=== PATIENT | female | born 1950 | race Hispanic/Latino ===

== ENCOUNTER 2018-04-01 14:34 | Inpatient (IN) | payer MEDICARE ==
[2018-04-01] MEDS ORDERED: Morphine 4 MG/ML VIAL IV STA (15:24)
[2018-04-01 15:40] LABS: BASO # 0.1 K/uL (0.0-0.2); BASO % 0.8 % (0.0-2.0); HEMOGLOBIN 13.4 g/dL (11.0-16.0); LYMPH # 0.7 K/uL (1.0-4.3); LYMPH % 4.8 % (20.0-40.0); MEAN CELL VOLUME 85.5 fL (81.0-99.0); MEAN CORPUSCULAR HEMOGLOBIN 28.9 pg (27.0-31.0); MEAN CORPUSCULAR HGB CONC 33.8 g/dL (33.0-37.0); MEAN PLATELET VOLUME 8.8 fL (7.2-11.7); MONO % 7.3 % (0.0-10.0); NEUT # 12.1 K/uL (1.8-7.0); NEUT % 87.1 % (50.0-75.0); PLATELET COUNT 529 K/uL (130-400); RBC 4.62 Mil/uL (3.80-5.20); RED CELL DISTRIBUTION WIDTH 14.2 % (11.5-14.5); WHITE BLOOD COUNT 13.8 K/uL (4.8-10.8)
[2018-04-01 15:58] LABS: ALB/GLOB RATIO 1.3 (1.0-2.1); ALBUMIN 4.2 g/dL (3.5-5.0); CALCIUM 10.3 mg/dl (8.6-10.4)
[2018-04-01 16:01] LABS: LYMPHOCYTE 5 % (20-40); MONOCYTE 11 % (0-10); NEUTROPHIL 83 % (50-75); PLATELET ESTIMATE INCREASED (NORMAL); REACTIVE LYMPHOCYTES 1 % (0-0); TOTAL CELLS COUNTED 100
[2018-04-01 16:02] LABS: POIKILOCYTOSIS SLIGHT
[2018-04-01 16:03] LABS: BURR CELLS SLIGHT; LARGE PLATELETS PRESENT
--- NOTE | 2018-04-01 16:08 | C.PDOC ---
History Of Present Illness 68 y/o female presents to ED c/o back pain, abdominal pain, and constipation for the last 3 weeks. She reports associated nausea, but denies vomiting, or urinary symptoms. Time Seen by Provider: 04/01/18 15:03 Chief Complaint (Nursing): Back Pain History Per: Patient History/Exam Limitations: no limitations Past Medical History Reviewed: Historical Data, Nursing Documentation, Vital Signs Vital Signs: Last Vital Signs Temp 97.7 F 04/01/18 14:35 Pulse 88 04/01/18 14:35 Resp 20 04/01/18 14:35 BP 104/70 04/01/18 14:35 Pulse Ox 96 04/01/18 17:14 - Medical History PMH: HTN, Hypercholesterolemia Family History: States: Unknown Family Hx - Social History Hx Alcohol Use: No Hx Substance Use: No Review Of Systems Except As Marked, All Systems Reviewed And Found Negative. Constitutional: Negative for: Fever, Chills Gastrointestinal: Positive for: Nausea, Abdominal Pain, Constipation. Negative for: Vomiting Genitourinary: Negative for: Dysuria, Frequency Musculoskeletal: Positive for: Back Pain Physical Exam - Physical Exam Appears: Non-toxic, No Acute Distress Skin: Normal Color, Warm, Dry Head: Atraumatic, Normacephalic Eye(s): bilateral: Normal Inspection Oral Mucosa: Moist Neck: Supple Cardiovascular: Rhythm Regular Respiratory: Normal Breath Sounds, No Rales, No Rhonchi, No Wheezing Gastrointestinal/Abdominal: Bowel Sounds, Soft, Tenderness (diffuse), No Guarding, No Rebound Back: No CVA Tenderness, No Vertebral Tenderness, Paraspinal Tenderness ( paralumbar), No Straight Leg Raising Extremity: Normal ROM Pulses: Left Dorsalis Pedis: Normal, Right Dorsalis Pedis: Normal Neurological/Psych: Oriented x3, Normal Speech ED Course And Treatment - Laboratory Results Result Diagrams: 04/01/18 15:35 04/01/18 15:35 ECG: Interpreted By Me, Viewed By Me ECG Rhythm: Sinus Rhythm Interpretation Of ECG: Normal axis, normal intervals. T wave inversion in lead II, III, and AVF. Rate From EC O2 Sat by Pulse Oximetry: 96 Pulse Ox Interpretation: Normal Medical Decision Making Medical Decision Making: Plan: Blood work UA CXR EKG LS Spine Morphine Disposition Discussed With : Padmavathi Jonnalagadda Doctor Will See Patient In The: Hospital Counseled Patient/Family Regarding: Studies Performed, Diagnosis - Disposition Disposition: HOSPITALIZED Disposition Time: 18:35 Condition: FAIR Forms: [facility] (Georgian) - Clinical Impression Clinical Impression: Hypokalemia, Chest mass, Cirrhosis - Scribe Statement The provider has reviewed the documentation as recorded by the Scribe KP All medical record entries made by the Scribe were at my direction and personally dictated by me. I have reviewed the chart and agree that the record accurately reflects my personal performance of the history, physical exam, medical decision making, and the department course for this patient. I have also personally directed, reviewed, and agree with the discharge instructions and disposition.
[2018-04-01 16:09] LABS: TROPONIN I 0.028 ng/mL (0.00-0.120)
--- NOTE | 2018-04-01 17:17 | RAD ---
Date of service: 04/01/2018 PROCEDURE: Radiographs of the Lumbar Spine. HISTORY: back pain COMPARISON: Lumbar spine radiographs performed 03/09/18 FINDINGS: BONES: Multilevel degenerative changes. Facet hypertrophy. Small osteophyte formation. Alignment appears satisfactory. DISC SPACES: Mild intervertebral disc space narrowing. OTHER FINDINGS: Dense atherosclerotic calcifications of the aorta and branches. IMPRESSION: Multilevel degenerative changes.
[2018-04-01] MEDS ORDERED: Potassium Chloride 20 mEq/15 ml LIQ UD PO STA (17:45)
[2018-04-01 17:56] LABS: SQUAMOUS EPITHIAL 1 /hpf (0-5); URINE BACTERIA RARE (<OCC); URINE BILIRUBIN NEGATIVE (NEGATIVE); URINE BLOOD 1+ (NEGATIVE); URINE CLARITY Clear (Clear); URINE COLOR Yellow (YELLOW); URINE GLUCOSE (UA) NORMAL (Normal); URINE HYALINE CAST >20 /lpf (0-2); URINE PROTEIN 1+ mg/dL (NEGATIVE)
[2018-04-01 17:57] LABS: URINE LEUKOCYTE ESTERASE 1+ Leu/uL (Negative)
[2018-04-01] MEDS ORDERED: Potassium Chloride 20 mEq 100 ML ONE (18:05)
[2018-04-01] MEDS ORDERED: Potassium Chloride 20 mEq ER Tab PO ONE (18:05)
--- NOTE | 2018-04-01 18:20 | CT ---
PROCEDURE: CT Abdomen and Pelvis without Oral or IV contrast. HISTORY: abd pain COMPARISON: None available TECHNIQUE: Contiguous axial images of the abdomen and pelvis. No oral or IV contrast administered. Coronal and Sagittal reformats generated. Radiation dose: Total exam DLP = 244.70 mGy-cm. This CT exam was performed using one or more of the following dose reduction techniques: Automated exposure control, adjustment of the mA and/or kV according to patient size, and/or use of iterative reconstruction technique. FINDINGS: There is limited evaluation of the solid organs without the administration of IV contrast. LOWER THORAX: Partially imaged right lower lobe cavitary lesion identified measuring approximately 2.8 x 3.4 cm. There is no visible pleural effusion or pneumothorax. Moderate to large hiatal hernia. LIVER: Nodular hepatic contour may be seen in the setting of cirrhosis. Hepatomegaly. Heterogeneous hepatic parenchyma with subtle regions of hypodensity. For example: 11 mm hypodensity at the hepatic dome (image 24) ; 9 mm hypodensity right hepatic lobe (image 36) 11 mm hypodensity right hepatic lobe (image 48) 10 mm hypodensity inferior right hepatic lobe (image 75). GALLBLADDER AND BILE DUCTS: Unremarkable unenhanced appearance. PANCREAS: Mild atrophy. SPLEEN: Unremarkable unenhanced appearance. ADRENALS: Left adrenal gland hypertrophy. The right adrenal gland appears unremarkable. KIDNEYS AND URETERS: No hydronephrosis or obstructing renal calculus. Probable 10 mm right renal cyst. BLADDER: The urinary bladder appears unremarkable. REPRODUCTIVE: Atrophic uterus. APPENDIX: No secondary signs of acute appendicitis. BOWEL: The stomach is nondistended. Lack of oral contrast limits evaluation for bowel pathology. The bowel loops appear within normal limits of caliber without evidence of intestinal obstruction. Scattered diverticula. PERITONEUM: No significant free fluid. No definite free air. LYMPH NODES: No bulky lymphadenopathy identified. VASCULATURE: Atherosclerotic calcifications of the aorta and branches. No aortic aneurysm. BONES: Degenerative changes. Osseous demineralization. OTHER FINDINGS: None. IMPRESSION: Right lower lobe cavitary lesion. Considerations include cavitary malignant neoplasm versus infection (such as tuberculosis or fungal infection). Nodular hepatic contour consistent with cirrhosis. Heterogeneous hepatic parenchyma with numerous subtle low-density regions which raise concern for underlying neoplasm/metastases. Recommend contrast-enhanced CT or triple phase liver CT for further evaluation. Hepatomegaly. Left adrenal gland hypertrophy. Additional findings as above. Findings discussed with Dr. Najera on 04/01/18 at 6:06 p.m.
--- NOTE | 2018-04-01 22:41 | CP.PCM.PN ---
Subjective - Date & Time of Evaluation Date of Evaluation: 04/01/18 Time of Evaluation: 22:41 - Subjective Subjective: H&P [facility] #[id number] Objective - Vital Signs/Intake and Output Vital Signs (last 24 hours): Temp Pulse Resp BP Pulse Ox 97.7 F 96 H 20 121/77 96 04/01/18 22:30 04/01/18 22:30 04/01/18 22:30 04/01/18 22:30 04/01/18 22:30 - Labs Labs: 04/01/18 15:35 04/01/18 15:35
[2018-04-01] MEDS: Sodium Chloride 0.45% 1,000 ML IV SCH (23:58)
[2018-04-02 08:04] LABS: ALB/GLOB RATIO 1.4 (1.0-2.1); ALBUMIN 4.1 g/dL (3.5-5.0); CALCIUM 10.2 mg/dl (8.6-10.4)
[2018-04-02 08:07] LABS: BASO # 0.1 K/uL (0.0-0.2); BASO % 0.6 % (0.0-2.0); EOS % 0.2 % (0.0-4.0); HEMOGLOBIN 12.6 g/dL (11.0-16.0); LYMPH # 1.2 K/uL (1.0-4.3); LYMPH % 9.3 % (20.0-40.0); MEAN CELL VOLUME 86.8 fL (81.0-99.0); MEAN CORPUSCULAR HEMOGLOBIN 29.3 pg (27.0-31.0); MEAN CORPUSCULAR HGB CONC 33.8 g/dL (33.0-37.0); MEAN PLATELET VOLUME 8.9 fL (7.2-11.7); MONO # 1.3 K/uL (0.0-0.8); MONO % 9.6 % (0.0-10.0); NEUT # 10.5 K/uL (1.8-7.0); NEUT % 80.3 % (50.0-75.0); NRBC % 0.1 % (0.0-2.0); PLATELET COUNT 477 K/uL (130-400); RBC 4.31 Mil/uL (3.80-5.20); RED CELL DISTRIBUTION WIDTH 14.9 % (11.5-14.5); WHITE BLOOD COUNT 13.1 K/uL (4.8-10.8)
--- NOTE | 2018-04-02 08:12 | HP ---
CHIEF COMPLAINT: Generalized fatigue, weakness, constipation for the past three days and chronic lower back pain for the past three weeks, unable to ambulate for the past three days. HISTORY OF PRESENT ILLNESS: Ms. Gil is a 68-year-old female with past medical history of hypertension, hyperlipidemia, chronic low back pain, who has been taking multiple pain medications and who has seen about three weeks ago for low back pain, came into the emergency room, brought by EMS with complaints of chronic low back pain, has been taking multiple pain medications without significant relief and has been having constipation for the past three days, not able to eat anything, feeling nauseous but denies any vomiting or any other associated symptoms. Denies any abdominal pain. Denies any headache or dizziness. Denies any chest pain, shortness of breath or wheezing. Denies any urinary complaints. Denies any leg pains or leg cramps. Denies any other neurologic symptoms. In the emergency room, the patient was found to be having abnormal radiologic workup and abnormal labs with elevated BUN and creatinine, and the patient is being admitted for further management. When I examined, the patient is still complaining of back pain and complaining of feeling thirsty, dry mouth. Requesting for fluids. Denies any other complaints. PAST MEDICAL HISTORY: As described; hypertension, chronic back pain, and hyperlipidemia. PAST SURGICAL HISTORY: Denies any past surgical history. FAMILY HISTORY: One brother from lung cancer. Other brother from unknown cancer, and another brother from alcoholism. PERSONAL HISTORY: She is not , not having any children. Lives alone. She is retired, worked for [employer] for many years. SOCIAL HISTORY: Ex-smoker. Quit smoking many years ago. Denies any alcohol or drugs. ALLERGIES: SHE IS ALLERGIC TO PENICILLIN. MEDICATIONS: Include ibuprofen three tablet p.o. four times a day as needed, lisinopril/hydrochlorothiazide 25/20 one tablet daily, lovastatin daily, metoprolol 100 mg daily. REVIEW OF SYSTEMS: As described in history of present illness, all other systems reviewed and were found to be negative. PHYSICAL EXAMINATION: GENERAL: Elderly female, lying in bed, in no acute distress. VITAL SIGNS: Blood pressure 121/77, pulse 96, respirations 20, temperature 97.7 degrees Fahrenheit, O2 sat is 96% on room air. HEENT: Pupils are equal, round, and reacting to light and accommodation. Extraocular muscles intact. No icterus. No pallor. No oral thrush. No pharyngeal congestion. NECK: Supple. No JVD. LUNGS: Bilateral vesicular breath sounds. No wheezing. No rhonchi. CARDIOVASCULAR SYSTEM: S1, S2 are present, regular. ABDOMEN: Soft. Bowel sounds present. Her liver enlarged breath below the right costal margin. Mild tenderness noted. No guarding, no rigidity, no rebound tenderness noted. CENTRAL NERVOUS SYSTEM: Alert, awake, oriented x1. No focal deficits noted. EXTREMITIES: No edema. Palpable peripheral pulses. LABORATORY DATA: Labs done from the emergency room: WBC 13.8, hemoglobin 13.4, hematocrit 39.5, platelets 529. Sodium 134, potassium 2.6, chloride 91, bicarb 17, BUN 46, creatinine 2.1, glucose 81, calcium 10.3. Magnesium 1.9, total bilirubin 1.8, AST 198, ALT 160, alkaline phosphatase 440, troponin 0.0280, total protein 7.5, albumin 4.2, lipase 132. UA: Specific gravity 1.013, pH 5, protein 1+, ketones 1+, blood 1+, urobilinogen 2, leukocyte esterase 1+, wbc 12, rbc 5. Lumbar spine x-ray consistent with multilevel degenerative changes. Abdomen and pelvis CT consistent with right lower lobe cavitary lesion. Considerations include cavitary malignant neoplasm versus infection, nodular hepatic contour consistent with cirrhosis, heterogeneous hepatic parenchyma with numerous low-density regions which raise concern for underlying neoplasm versus metastases. Left adrenal gland hypertrophy. Chest x-ray consistent with right lung mass versus cavitary lesion. ASSESSMENT: Elderly female with past medical history of hypertension, hyperlipidemia, chronic low back pain, on multiple pain medications for long time, admitted to the hospital with worsening low back pain for the past three weeks and constipation for the past three days and not able to eat and difficulty ambulation at home. In the Emergency Department, the patient was found to be having low potassium, elevated BUN and creatinine and abnormal liver function test. CT of the abdomen and pelvis consistent with cirrhosis of the liver with multiple hepatic lesions and chest x-ray consistent with right lung mass; and the patient is being admitted for further management. 1. Acute kidney injury, on chronic kidney disease. 2. Hypokalemia. 3. Abnormal liver function tests. 4. Cirrhosis of the liver versus hepatic lesions, rule out primary versus metastatic disease. 5. Right lung mass, rule out infectious etiology versus malignant lesion. 6. History of hypertension. 7. History of chronic low back pain. 8. Constipation. PLAN: The patient is being admitted to telemetry. We will supplement potassium. Check magnesium level and phosphorus level. The patient is being supplemented with potassium in the emergency room. We will give gentle hydration. Check hepatitis serology. We will repeat labs in the morning. We will obtain pulmonary consult. We will consider GI and Renal evaluations. We will obtain laboratory data from primary physician's office. We will check QuantiFERON-TB Gold test. Advised the patient to bring the medication dosages. We will restart her medications. We will add further recommendations as her clinical course progresses. Aislinn Hennessy MD
[2018-04-02 08:46] LABS: SQUAMOUS EPITHIAL 5 /hpf (0-5); URINE BACTERIA RARE (<OCC); URINE BILIRUBIN NEGATIVE (NEGATIVE); URINE BLOOD 1+ (NEGATIVE); URINE CLARITY Clear (Clear); URINE COLOR Yellow (YELLOW); URINE GLUCOSE (UA) NORMAL (Normal); URINE LEUKOCYTE ESTERASE 2+ Leu/uL (Negative); URINE PROTEIN NEGATIVE (NEGATIVE); URINE UROBILINOGEN NORMAL mg/dL (0.2-1.0)
[2018-04-02 08:52] LABS: BARBITURATES, UR NEGATIVE (NEGATIVE); BENZODIAZEPINES, UR NEGATIVE (NEGATIVE); PHENCYCLIDINE, UR NEGATIVE (NEGATIVE)
[2018-04-02 09:11] LABS: OPIATES, UR POSITIVE (NEGATIVE)
--- NOTE | 2018-04-02 09:48 | CP.PCM.PN ---
Subjective - Date & Time of Evaluation Date of Evaluation: 04/02/18 Time of Evaluation: 09:48 - Subjective Subjective: Progress note dictated #[id number] Objective - Vital Signs/Intake and Output Vital Signs (last 24 hours): Temp Pulse Resp BP Pulse Ox 97.7 F 115 H 20 105/69 95 04/02/18 07:00 04/02/18 07:49 04/02/18 07:00 04/02/18 07:00 04/02/18 07:00 - Medications Medications: Current Medications Heparin Sodium (Porcine) (Heparin) 5,000 units SC Q12 [facility] Sodium Chloride (Sodium Chloride 0.45%) 1,000 mls @ 75 mls/hr IV .[id number] [facility] Last Admin: 04/01/18 23:58 Dose: 75 mls/hr Thiamine HCl (Vitamin B1 Tab) 100 mg PO DAILY [facility] Last Admin: 04/01/18 23:57 Dose: 100 mg - Labs Labs: 04/02/18 07:39 04/02/18 07:39
--- NOTE | 2018-04-02 10:18 | RAD ---
Chest x-ray single frontal view History: Shortness of breath. Comparison: None available. Findings: Large 4.7 centimeter mass concerning for neoplasm in the right mid lung zone. Additional masses noted within the right lower lung zone measuring 1.9 centimeters. Cavitary lesion seen within the medial left lower lung zone measuring up to 3 centimeters. Diffuse interstitial lung markings with scattered nodularity in both lung lennon. Heart size within normal limits. Degenerative changes in the spine and shoulders. Impression: Multiple pulmonary masses concerning for neoplasm and or infection. Further evaluation with chest CT is recommended.
[2018-04-02] MEDS: Potassium Chloride 20 mEq ER Tab PO SCH ×2 (10:46→13:15)
[2018-04-02 11:35] LABS: ANISOCYTOSIS SLIGHT; LARGE PLATELETS PRESENT; LYMPHOCYTE 10 % (20-40); MONOCYTE 8 % (0-10); NEUTROPHIL 82 % (50-75); PLATELET ESTIMATE INCREASED (NORMAL); TOTAL CELLS COUNTED 100
[2018-04-02 11:36] LABS: HYPOCHROMIC SLIGHT; POLYCHROMIC SLIGHT
[2018-04-02 11:38] LABS: BURR CELLS SLIGHT; POIKILOCYTOSIS SLIGHT
[2018-04-02] MEDS: Sodium Chloride 0.45% 1,000 ML IV SCH (12:59)
--- NOTE | 2018-04-02 19:44 | CP.PCM.CON ---
History of Present Illness - History of Present Illness History of Present Illness: reason for consultation: lung mass 60-year-old female with history of hypertension, hyperlipidemia, low back pain presented to emergency room with low back pain and has been taking multiple pain medication without any relief. Patient denies shortness of breath, denies any chest pain but complaining of slight cough. Chest x-ray done in the emergency consistent with a right lung mass followed by CAT scan of the chest with possible metastases to liver. Patient has history of smoking and quit many years ago. Denies hemoptysis but complaining of weight loss Review of Systems - Review of Systems All systems: reviewed and no additional remarkable complaints except (chronic low back pain and slight cough) Past Patient History - Past Medical History & Family History Past Medical History?: Yes - Past Social History Smoking Status: Former Smoker - CARDIAC Hx Hypercholesterolemia: Yes Hx Hypertension: Yes - PULMONARY Hx Respiratory Disorders: No - NEUROLOGICAL Hx Neurological Disorder: Yes HX Cerebrovascular Accident: Yes - HEENT Hx HEENT Problems: No - RENAL Hx Chronic Kidney Disease: No - ENDOCRINE/METABOLIC Hx Endocrine Disorders: No - HEMATOLOGICAL/ONCOLOGICAL Hx Blood Disorders: No - INTEGUMENTARY Hx Dermatological Problems: No - MUSCULOSKELETAL/RHEUMATOLOGICAL Hx Musculoskeletal Disorders: Yes Hx Back Pain: Yes Hx Falls: Yes - GASTROINTESTINAL Hx Gastrointestinal Disorders: Yes Hx Constipation: Yes - GENITOURINARY/GYNECOLOGICAL Hx Genitourinary Disorders: No - PSYCHIATRIC Hx Substance Use: No - SURGICAL HISTORY Hx Surgeries: No - ANESTHESIA Hx Anesthesia: No Meds Allergies/Adverse Reactions: Allergies Allergy/AdvReac Type Severity Reaction Status Date / Time Penicillins Allergy Verified 04/01/18 14:38 - Medications Medications: Current Medications Heparin Sodium (Porcine) (Heparin) 5,000 units SC Q12 [facility] Last Admin: 04/02/18 10:46 Dose: 5,000 units Sodium Chloride (Sodium Chloride 0.45%) 1,000 mls @ 75 mls/hr IV .[id number] [facility] Last Admin: 04/02/18 12:59 Dose: Not Given Thiamine HCl (Vitamin B1 Tab) 100 mg PO DAILY [facility] Last Admin: 04/02/18 09:51 Dose: 100 mg Physical Exam - Head Exam Head Exam: ATRAUMATIC, NORMOCEPHALIC - ENT Exam ENT Exam: Mucous Membranes Moist - Neck Exam Neck exam: Positive for: Normal Inspection - Respiratory Exam Respiratory Exam: Clear to Auscultation Bilateral - Cardiovascular Exam Cardiovascular Exam: REGULAR RHYTHM - GI/Abdominal Exam GI & Abdominal Exam: Normal Bowel Sounds, Soft - Extremities Exam Extremities exam: Positive for: pedal edema - Neurological Exam Neurological exam: Alert, Oriented x3 Results - Vital Signs Recent Vital Signs: Last Vital Signs Temp 97.7 F 04/02/18 15:00 Pulse 104 H 04/02/18 15:00 Resp 20 04/02/18 15:00 BP 123/76 04/02/18 15:00 Pulse Ox 95 04/02/18 15:00 - Labs Result Diagrams: 04/02/18 07:39 04/02/18 07:39 Labs: Laboratory Results - last 24 hr 04/02/18 04/02/18 04/02/18 00:15 07:39 07:39 WBC 13.1 H RBC 4.31 Hgb 12.6 Hct 37.4 MCV 86.8 MCH 29.3 MCHC 33.8 RDW 14.9 H Plt Count 477 H MPV 8.9 Neut % (Auto) 80.3 H Lymph % (Auto) 9.3 L [place] % (Auto) 9.6 Eos % (Auto) 0.2 Baso % (Auto) 0.6 Neut # (Auto) 10.5 H Lymph # (Auto) 1.2 [place] # (Auto) 1.3 H Eos # (Auto) 0.0 Baso # (Auto) 0.1 Neutrophils % (Manual) 82 H Lymphocytes % (Manual) 10 L Monocytes % (Manual) 8 Platelet Estimate Increased H Large Platelets Present Polychromasia Slight Hypochromasia (manual) Slight Poikilocytosis (manual Slight Anisocytosis (manual) Slight [place] Cells Slight Sodium 132 Potassium 3.4 L Chloride 95 L Carbon Dioxide 17 L Anion Gap 23 H BUN 38 H Creatinine 1.3 H Est GFR ( Amer) 49 Est GFR (Non-Af Amer) 41 Random Glucose 82 Calcium 10.2 Phosphorus 2.9 Magnesium 1.8 Total Bilirubin 2.2 H AST 184 H ALT 143 H Alkaline Phosphatase 420 H Ammonia 32 Total Protein 7.0 Albumin 4.1 Globulin 2.9 Albumin/Globulin Ratio 1.4 Triglycerides 158 H Cholesterol 202 H LDL Cholesterol Direct 82 HDL Cholesterol 73 H TSH 3rd Generation 0.92 Urine Color Urine Clarity Urine pH Ur Specific [place] Urine Protein Urine Glucose (UA) Urine Ketones Urine Blood Urine Nitrate Urine Bilirubin Urine Urobilinogen Ur Leukocyte Esterase Urine WBC (Auto) Urine RBC (Auto) Ur Squamous Epith Cells Urine Bacteria Urine Opiates Screen Urine Methadone Screen Ur Barbiturates Screen Ur Phencyclidine Scrn Ur Amphetamines Screen U Benzodiazepines Scrn U Oth Cocaine Metabols U Cannabinoids Screen 04/02/18 04/02/18 08:17 08:17 WBC RBC Hgb Hct MCV MCH MCHC RDW Plt Count MPV Neut % (Auto) Lymph % (Auto) [place] % (Auto) Eos % (Auto) Baso % (Auto) Neut # (Auto) Lymph # (Auto) [place] # (Auto) Eos # (Auto) Baso # (Auto) Neutrophils % (Manual) Lymphocytes % (Manual) Monocytes % (Manual) Platelet Estimate Large Platelets Polychromasia Hypochromasia (manual) Poikilocytosis (manual Anisocytosis (manual) [place] Cells Sodium Potassium Chloride Carbon Dioxide Anion Gap BUN Creatinine Est GFR ( Amer) Est GFR (Non-Af Amer) Random Glucose Calcium Phosphorus Magnesium Total Bilirubin AST ALT Alkaline Phosphatase Ammonia Total Protein Albumin Globulin Albumin/Globulin Ratio Triglycerides Cholesterol LDL Cholesterol Direct HDL Cholesterol TSH 3rd Generation Urine Color Yellow Urine Clarity Clear Urine pH 5.0 Ur Specific [place] 1.011 Urine Protein Negative Urine Glucose (UA) Normal Urine Ketones 1+ H Urine Blood 1+ H Urine Nitrate Negative Urine Bilirubin Negative Urine Urobilinogen Normal Ur Leukocyte Esterase 2+ H Urine WBC (Auto) 7 H Urine RBC (Auto) 1 Ur Squamous Epith Cells 5 Urine Bacteria Rare Urine Opiates Screen Positive H Urine Methadone Screen Negative Ur Barbiturates Screen Negative Ur Phencyclidine Scrn Negative Ur Amphetamines Screen Negative U Benzodiazepines Scrn Negative U Oth Cocaine Metabols Negative U Cannabinoids Screen Negative Assessment & Plan (1) Mass of right lung Status: Acute Comment: right lung mass with possible liver metastases. Lung biopsy. Continue pain medication
--- NOTE | 2018-04-02 20:44 | PN ---
DATE: 04/02/2018 SUBJECTIVE: The patient was seen and examined at bedside. The patient denies any new complaints, able to tolerate p.o. feeds without any nausea or vomiting. PHYSICAL EXAMINATION: GENERAL: An elderly female, lying in bed, in no acute distress. VITAL SIGNS: Blood pressure 105/69, pulse 86, respirations 20, temperature 97.5 degrees Fahrenheit, and O2 saturations 95% on room air. HEENT: Pupils are round and reacting to light and accommodation. Extraocular muscles intact. No icterus. No pallor. No oral thrush. No pharyngeal congestion. NECK: Supple, no JVD. LUNGS: Bilateral vesicular breath sounds. No wheezing, no rhonchi. CVS: S1 and S2 present, regular. ABDOMEN: Soft and nontender. Bowel sounds present. No guarding, no rigidity, and no rebound tenderness noted. CENTRAL NERVOUS SYSTEM: Alert, awake, and oriented x3, no focal deficits noted. EXTREMITIES: No edema, palpable peripheral pulses. LABORATORY DATA: From this morning: WBC 13.1, hemoglobin 12.6, hematocrit 37.4, platelets 477. Sodium 132, potassium 3.4, chloride 95, bicarbonate 17, BUN 38, creatinine 1.3, glucose 82, calcium 10,2, phosphorus 2.9, magnesium 1.8, total bilirubin 2.2, AST 184, ALT 143, alkaline phosphatase 420, total protein 7, albumin 4.1, triglycerides 158, cholesterol 202, LDL 82, HDL 73, and TSH 0.92. Urine drug screen is positive for opiates. MEDICATIONS: Include subcutaneous heparin 5000 units every 12 hours, normal saline at 75 mL an hour, and thiamine 100 mg daily. ASSESSMENT AND PLAN: An elderly female with history of hypertension, hyperlipidemia, history of cerebrovascular accident with left lower extremity residual weakness, who uses a cane at home, and chronic low back pain, on pain medications, admitted for acute renal failure, hypokalemia, abnormal liver function tests, right lung mass, cirrhosis of the liver versus multiple hepatic lesions, rule out secondary to metastatic disease, and chronic constipation. The patient's renal function is improving on IV fluids, tolerating p.o. feeds. Supplement potassium, waiting for CT of the chest results, and pulmonary and GI evaluations requested. We will continue with deep venous thrombosis and gastrointestinal prophylaxis. Gave 1 dose of lactulose for constipation. Repeat labs in a.m. We will add further recommendation as her clinical course progresses. Aislinn Hennessy MD [facility] # [id number]
--- NOTE | 2018-04-03 00:53 | PCM.FALL ---
Post Fall Progress Note - Post Fall Fall Date: 04/03/18 Fall Time: 00:37 Description of Fall: Patient states she was getting up from bed to use the bedside camode and her legs got slightly tangled into the sheets that she fell onto her right side, while holding onto the other end of the sheets. Patient states she feel softly onto the ground. Patient denies hitting head & LOC. - Post Fall Exam Vital Sign: Temp Pulse Resp BP Pulse Ox 97.5 F L 101 H 20 127/81 95 04/03/18 00:00 04/03/18 00:00 04/03/18 00:00 04/03/18 00:00 04/03/18 00:00 Skull Exam: Negative for: Scalp wound, Scalp hematoma, Scalp depression, Ridge in skull Eye Exam: Positive for: Pupils equal, Pupils reactive Ear Exam: Negative for: Discharge, Bleeding Nose Exam: Negative for: Discharge, Bleeding Skin Exam: Negative for: Lacerations Chest Exam: Negative for: Difficulty breathing, Tenderness in collar bones Abdomen Exam: Negative for: Tenderness Pelvic Exam: Negative for: Tenderness Leg Exam: Negative for: Deformity, Alteration in range of movement Other pertinent findings: Patient A&OX3 throughout examination. Patient denies tenderness/pain at all 4 extremities. No erythema/ ecchymosis present. Impression/Plan: Code star for 68F w/ PMHx HTN, HLD, chronic lower back pain. Upon arrival patient was found sitting in bedside commode. Patient states she fell as described earlier in note. Patient is A&O X3, denies any current pain. Patient able to move all 4 extremities w/o pain and patient currently has no erythema around extremities. Vitals were assessed at BP 149/89 & HR 102 & O2 Sat 96%. Patient re-examined and patient remains A&O3. No additional medical management warranted at this time. Nurse informed to re-page house doctor if change in mental status &/or patient complaints.
[2018-04-03] MEDS: Sodium Chloride 0.45% 1,000 ML IV SCH ×4 (05:58→20:25)
[2018-04-03 08:07] LABS: HEPATITIS B SURFACE AG Negative (NEGATIVE)
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
[2018-04-03 08:13] LABS: HEPATITIS A IGM NEGATIVE (NEGATIVE); HEPATITIS B CORE AB NEGATIVE (NEGATIVE)
[2018-04-03 08:24] LABS: HEPATITIS C ANTIBODY NEGATIVE (NEGATIVE)
[2018-04-03 11:20] LABS: INR 1.3; PROTHROMBIN TIME 13.7 SECONDS (9.7-12.2)
--- NOTE | 2018-04-03 12:24 | CP.PCM.PN ---
Subjective - Date & Time of Evaluation Date of Evaluation: 04/03/18 Time of Evaluation: 12:24 - Subjective Subjective: Progress note dictated #[id number] Objective - Vital Signs/Intake and Output Vital Signs (last 24 hours): Temp Pulse Resp BP Pulse Ox 97.6 F 105 H 20 114/72 95 04/03/18 07:00 04/03/18 07:20 04/03/18 07:00 04/03/18 07:00 04/03/18 07:00 Intake and Output: 04/03/18 04/03/18 06:59 18:59 Intake Total 800 Balance 800 - Medications Medications: Current Medications Heparin Sodium (Porcine) (Heparin) 5,000 units SC Q12 [facility] Last Admin: 04/03/18 09:10 Dose: 5,000 units Sodium Chloride (Sodium Chloride 0.45%) 1,000 mls @ 75 mls/hr IV .[id number] [facility] Last Admin: 04/03/18 05:58 Dose: 75 mls/hr Thiamine HCl (Vitamin B1 Tab) 100 mg PO DAILY [facility] Last Admin: 04/03/18 09:10 Dose: 100 mg - Labs Labs: 04/02/18 07:39 04/02/18 07:39 PT 13.7 SECONDS (9.7-12.2) H 04/03/18 11:08 INR 1.3 04/03/18 11:08
--- NOTE | 2018-04-03 13:14 | CT ---
CT chest History: Cavitary lung mass. Pulmonary masses. Comparison: CT abdomen and pelvis dated 04/01/2018 Technique: Multiple contiguous axial images were performed through the chest without the use of intravenous contrast. Subsequently, sagittal and coronal reformatted images were obtained. This CT exam was performed using one or more of the following dose reduction techniques: Automated exposure control, adjustment of the mA and/or kV according to patient size, and/or use of iterative reconstruction technique. Findings: Right lung: Hyperinflated lung lennon suggestive for COPD and or emphysematous changes. Scattered tree-in-bud opacities in the right lung. Large pulmonary mass/lesion measuring 4.3 x 4.3 centimeters seen at the junction of the right upper and middle lobes with apparent extension through the fissure best seen on series 3, image 59. Additional prominent less well-defined nodular opacity more inferiorly in the middle lobe measuring 1.8 x 1.3 x 1 5 centimeters. Multiple smaller nodules seen throughout the right lun millimeters on series 3 image 24, 2 millimeters on image 34, 3 millimeters on image 36, 7 millimeters on image 42, and 5 millimeters on image 46. Left lun.2 x 3.2 centimeter cavitary mass in the medial left lower lobe. Trachea thru central airways patent. No significant axillary adenopathy. Calcification and plaque within the aorta. Right hilar adenopathy measuring up to 2.6 centimeters. 2.3 x 1.6 centimeter precarinal lymph node. 2.1 x 1.8 centimeters subcarinal lymphadenopathy. Coronary calcifications. Nodular and cirrhotic contour of the liver with heterogeneous attenuation. Given the heterogeneous attenuation of the liver, underlying hepatic metastatic disease cannot be excluded. This would be better evaluated with multiphasic CT scan if clinically indicated. Prominent hiatal hernia. Degenerative changes in the spine. 10 millimeter subareolar nodule in the left breast. Correlation with mammogram is recommended. Impression: 4.3 centimeters solid mass involving both the right upper and middle lobes of the lung with an adjacent 1.8 x 1.3 x 1.5 centimeter right midpole nodule. Associated mediastinal and hilar adenopathy. These findings are concerning for malignancy. Clinical correlation. 3.2 centimeter cavitary mass in the left lower lobe of the lung medially. Clinical correlation. Additional findings as above. These findings were preliminarily reported at 5:18 p.m. on 04/02/[address] Miriam Muller from [facility].
--- NOTE | 2018-04-04 01:17 | PN ---
DATE: 04/03/2018 SUBJECTIVE: The patient was seen and examined at bedside. The patient offers no new complaints other than persistent low back pain. Tolerating p.o. feeds, requesting for heating pad. PHYSICAL EXAMINATION: GENERAL: Elderly female, lying in bed, in no acute distress. VITAL SIGNS: Blood pressure 150/86, pulse 109, respirations 18, temperature 97.8 degrees Fahrenheit, O2 sat is 97% on room air. HEENT: Pupils equal, round, reacting to light and accommodation. Extraocular muscles intact. No icterus. No pallor. No oral thrush. No pharyngeal congestion. NECK: Supple. No JVD. LUNGS: Bilateral vesicular breath sounds. No wheezing. No rhonchi. CVS: S1, S2 present, regular. ABDOMEN: Soft, nontender. Bowel sounds present. No guarding. No rigidity. No rebound tenderness noted. [employer]: Alert, awake, oriented x3. No focal deficits noted. EXTREMITIES: No edema. Palpable peripheral pulses. MEDICATIONS: Include heparin 5000 units subcu every 12 hours, half normal saline at 75 mL an hour, thiamine 100 mg p.o. daily. LABORATORY DATA: PT is 13.7, INR 1.3, lizeth fetoprotein 3.3, CEA 2, CA 19-9 383, CA-125 212, TSH 0.92. Hepatitis serology negative. Chest CT consistent with a 4.3 cm solid mass involving both the right upper and middle lobes and adjacent 1.8 x 1.3 x 1.5 cm right mid pole nodule, mediastinal hilar adenopathy, a 3.2 cm cavitary mass in the left lower lobe of the lung medially. ASSESSMENT AND PLAN: Elderly female with history of hypertension, hyperlipidemia, chronic low back pain, admitted for acute renal failure status post hypokalemia, right lung mass with left lung cavitary lesion, abnormal liver function test and abnormal tumor markers. Pulmonary consult and GI consult appreciated. Continue with current therapy for possible lung biopsy in a.m. We will check bone scan to rule out any bone mets. I will repeat labs in a.m. Her renal function is improving. We will follow up with Pulmonary. Aislinn Hennessy MD
[2018-04-04] MEDS: Sodium Chloride 0.45% 1,000 ML IV SCH ×2 (04:05→08:51)
[2018-04-04 08:14] LABS: BASO % 0.5 % (0.0-2.0); EOS % 0.1 % (0.0-4.0); HEMOGLOBIN 12.5 g/dL (11.0-16.0); LYMPH # 0.8 K/uL (1.0-4.3); MEAN CELL VOLUME 86.1 fL (81.0-99.0); MEAN CORPUSCULAR HEMOGLOBIN 29.7 pg (27.0-31.0); MEAN CORPUSCULAR HGB CONC 34.5 g/dL (33.0-37.0); MEAN PLATELET VOLUME 8.7 fL (7.2-11.7); MONO # 0.8 K/uL (0.0-0.8); MONO % 8.4 % (0.0-10.0); NEUT # 8.1 K/uL (1.8-7.0); NRBC % 0.1 % (0.0-2.0); PLATELET COUNT 397 K/uL (130-400); RBC 4.21 Mil/uL (3.80-5.20); RED CELL DISTRIBUTION WIDTH 14.7 % (11.5-14.5); WHITE BLOOD COUNT 9.7 K/uL (4.8-10.8)
[2018-04-04 09:07] LABS: ALB/GLOB RATIO 1.4 (1.0-2.1); ALBUMIN 3.8 g/dL (3.5-5.0); ALT/SGPT 250 U/L (9-52); AST/SGOT 388 U/L (14-36); BLOOD UREA NITROGEN 14 mg/dL (7-17); CALCIUM 10.4 mg/dl (8.6-10.4); GFR NON-AFRICAN AMERICAN > 60
--- NOTE | 2018-04-04 09:12 | CP.PCM.PN ---
<Esther Kelly - Last Filed: 04/04/18 09:10> Subjective - Date & Time of Evaluation Date of Evaluation: 04/04/18 Time of Evaluation: 09:10 - Subjective Subjective: Gastroenterology Fellow/PGY6 Progress Note Patient continues to have unchanged low back pain without relief from heating pad. Tolerating full liquid diet. Notes small formed bowel movement yesterday. A 12-point review of systems negative except for as above. Objective - Vital Signs/Intake and Output Vital Signs (last 24 hours): Temp Pulse Resp BP Pulse Ox 98 F 8 L 20 134/91 H 97 04/04/18 00:00 04/04/18 02:11 04/04/18 00:00 04/04/18 00:00 04/04/18 00:00 Intake and Output: 04/04/18 04/04/18 06:59 18:59 Intake Total 1240 Balance 1240 - Medications Medications: Current Medications Heparin Sodium (Porcine) (Heparin) 5,000 units SC Q12 [facility] Last Admin: 04/03/18 21:37 Dose: 5,000 units Sodium Chloride (Sodium Chloride 0.45%) 1,000 mls @ 75 mls/hr IV .[id number] [facility] Last Admin: 04/04/18 08:51 Dose: 75 mls/hr Thiamine HCl (Vitamin B1 Tab) 100 mg PO DAILY [facility] Last Admin: 04/03/18 09:10 Dose: 100 mg - Labs Labs: 04/04/18 08:04 04/04/18 08:05 PT 13.7 SECONDS (9.7-12.2) H 04/03/18 11:08 INR 1.3 04/03/18 11:08 - Constitutional Appears: Non-toxic, No Acute Distress - Head Exam Head Exam: ATRAUMATIC, NORMOCEPHALIC - Eye Exam Eye Exam: EOMI, PERRL. absent: Scleral icterus Pupil Exam: PERRL. absent: Miosis, Mydriatic - ENT Exam ENT Exam: Mucous Membranes Moist, Normal Oropharynx - Neck Exam Neck Exam: Full ROM, Normal Inspection - Respiratory Exam Respiratory Exam: Clear to Ausculation Bilateral. absent: Rales, Rhonchi, Wheezes - Cardiovascular Exam Cardiovascular Exam: RRR, +S1, +S2. absent: Gallop, Rubs - GI/Abdominal Exam GI & Abdominal Exam: Soft, Normal Bowel Sounds. absent: Distended, Firm, Guarding, Rigid, Tenderness, Organomegaly, Rebound - Extremities Exam Extremities Exam: Normal Inspection. absent: Pedal Edema - Neurological Exam Neurological Exam: Alert, Awake Additional comments: no asterixis - Psychiatric Exam Psychiatric exam: Normal Affect, Normal Mood - Skin Skin Exam: Dry, Intact, Normal Color, Warm Assessment and Plan - Assessment and Plan (Free Text) Assessment: 68 year old female with PMH of alcoholic cirrhosis, HTN, and HLD presenting with chronic low back pain. Active treatment of JONNIE 2/2 NSAIDs use/dehydration and note of multiple right lung lesions and transaminitis in setting of multiple hepatic lesions on CT C/A/P. No prior EGD or colonoscopy. Plan: -MELD 19 -pending lung biopsy and bone scan -normal hepatitis panel and AFP 3.3 -no signs of hepatic decompensation -monitor LFTs -creatinine improving -tolerating full liquid diet -ordered Miralax for constipation -future CT Liver protocol once renal function medical optimized from NSAID insult to evaluate for HCC versus metastatic disease -will benefit from colonoscopy, will discuss timing based on pulmonology workup and recommendation <Dylon Lombardo - Last Filed: 04/04/18 10:39> Objective - Vital Signs/Intake and Output Vital Signs (last 24 hours): Temp Pulse Resp BP Pulse Ox 98 F 8 L 20 134/91 H 97 04/04/18 00:00 04/04/18 02:11 04/04/18 00:00 04/04/18 00:00 04/04/18 00:00 Intake and Output: 04/04/18 04/04/18 06:59 18:59 Intake Total 1240 Balance 1240 - Medications Medications: Current Medications Heparin Sodium (Porcine) (Heparin) 5,000 units SC Q12 [facility] Last Admin: 04/03/18 21:37 Dose: 5,000 units Sodium Chloride (Sodium Chloride 0.45%) 1,000 mls @ 75 mls/hr IV .[id number] [facility] Last Admin: 04/04/18 08:51 Dose: 75 mls/hr Polyethylene Glycol (Miralax) 17 gm PO DAILY [facility] Last Admin: 04/04/18 10:15 Dose: 17 gm Thiamine HCl (Vitamin B1 Tab) 100 mg PO DAILY [facility] Last Admin: 04/04/18 10:15 Dose: 100 mg - Labs Labs: 04/04/18 08:04 04/04/18 08:05 PT 13.7 SECONDS (9.7-12.2) H 04/03/18 11:08 INR 1.3 04/03/18 11:08 Attending/Attestation - Attestation I have personally seen and examined this patient.: Yes I have fully participated in the care of the patient.: Yes I have reviewed all pertinent clinical information, including history, physical exam and plan: Yes Notes (Text): 04/04/18 10:35 I have seen and examined patient with GI fellow. No acute events overnight, she is seen sitting at side of bed comfortably. She continues to endorse persistent lower back pain along with constipation. She had a small bowel movement yesterday. She denies nausea, vomiting, fever/chills. Tolerating PO liquids without difficulty. Review of vitals from today shows elevated BP. ETOH cirrhosis HTN Chronic lower back pain Pulmonary and hepatic lesions Acute renal insufficiency - Full liquid diet as tolerated - Creatinine improving, continue to monitor - Follow up pulmonary recommendations regarding potential lung biopsy - Will initiate bowel regimen to prevent constipation - Patient would benefit from eventual colonoscopy to rule out underlying neoplasm along with triple phase liver CT. Timing to be determined pending patient clinical course.
[2018-04-04] MEDS ORDERED: POLYETHYLENE GLYCOL 3350 17 GM/Dose PACKET PO SCH (10:00)
[2018-04-04 10:39] LABS: ANISOCYTOSIS SLIGHT; LYMPHOCYTE 8 % (20-40); MONOCYTE 8 % (0-10); NEUTROPHIL 84 % (50-75); PLATELET ESTIMATE NORMAL (NORMAL); TOTAL CELLS COUNTED 100
[2018-04-04 10:40] LABS: HYPOCHROMIC SLIGHT; POLYCHROMIC SLIGHT; TOXIC GRANULATION PRESENT
[2018-04-04 12:12] LABS: ALB/GLOB RATIO 1.3 (1.0-2.1); ALT/SGPT 266 U/L (9-52); AST/SGOT 417 U/L (14-36); BLOOD UREA NITROGEN 14 mg/dL (7-17); CALCIUM 10.5 mg/dl (8.6-10.4); GFR NON-AFRICAN AMERICAN > 60
[2018-04-04] MEDS: Magnesium Sulfate 1 gm in D5W 1 GM/100 ML BAG IVPB SCH ×2 (12:59→16:00)
--- NOTE | 2018-04-04 13:50 | CP.PCM.PN ---
Subjective - Date & Time of Evaluation Date of Evaluation: 04/04/18 Time of Evaluation: 13:50 - Subjective Subjective: Progress note dictated #[id number] Objective - Vital Signs/Intake and Output Vital Signs (last 24 hours): Temp Pulse Resp BP Pulse Ox 97.6 F 95 H 20 138/85 96 04/04/18 07:15 04/04/18 07:33 04/04/18 07:15 04/04/18 07:15 04/04/18 07:15 Intake and Output: 04/04/18 04/04/18 06:59 18:59 Intake Total 1240 Balance 1240 - Medications Medications: Current Medications Heparin Sodium (Porcine) (Heparin) 5,000 units SC Q12 [facility] Last Admin: 04/04/18 12:59 Dose: Not Given Potassium Phosphate 15 mmole/ (Sodium Chloride) 255 mls @ 42.5 mls/hr IVPB ONCE ONE Stop: 04/04/18 19:59 Polyethylene Glycol (Miralax) 17 gm PO DAILY [facility] Last Admin: 04/04/18 10:15 Dose: 17 gm Thiamine HCl (Vitamin B1 Tab) 100 mg PO DAILY [facility] Last Admin: 04/04/18 10:15 Dose: 100 mg - Labs Labs: 04/04/18 08:04 04/04/18 11:07 PT 13.7 SECONDS (9.7-12.2) H 04/03/18 11:08 INR 1.3 04/03/18 11:08
[2018-04-04] MEDS ORDERED: Potassium Phosphate 15 MMOLE in Sodium Chloride 0.9% 250 ML IVPB ONE (14:00)
[2018-04-04] MEDS: Pantoprazole 40 mg EC Tab PO SCH (14:23)
--- NOTE | 2018-04-04 17:07 | CP.PCM.PN ---
Subjective - Date & Time of Evaluation Date of Evaluation: 04/04/18 Time of Evaluation: 08:30 - Subjective Subjective: the patient seen and examined Complaining of chest wall pain no shortness of breath Afebrile Objective - Vital Signs/Intake and Output Vital Signs (last 24 hours): Temp Pulse Resp BP Pulse Ox 97.6 F 95 H 20 138/85 96 04/04/18 07:15 04/04/18 07:33 04/04/18 07:15 04/04/18 07:15 04/04/18 07:15 Intake and Output: 04/04/18 04/04/18 06:59 18:59 Intake Total 1240 Balance 1240 - Medications Medications: Current Medications Heparin Sodium (Porcine) (Heparin) 5,000 units SC Q12 [facility] Last Admin: 04/04/18 12:59 Dose: Not Given Potassium Phosphate 15 mmole/ (Sodium Chloride) 255 mls @ 42.5 mls/hr IVPB ONCE ONE Stop: 04/04/18 19:59 Morphine Sulfate (Morphine) 1 mg IVP Q4 PRN PRN Reason: Pain, severe (8-10) Pantoprazole Sodium (Protonix Ec Tab) 40 mg PO DAILY [facility] Last Admin: 04/04/18 14:23 Dose: 40 mg Polyethylene Glycol (Miralax) 17 gm PO DAILY [facility] Last Admin: 04/04/18 10:15 Dose: 17 gm Thiamine HCl (Vitamin B1 Tab) 100 mg PO DAILY [facility] Last Admin: 04/04/18 10:15 Dose: 100 mg - Labs Labs: 04/04/18 08:04 04/04/18 11:07 PT 13.7 SECONDS (9.7-12.2) H 04/03/18 11:08 INR 1.3 04/03/18 11:08 - Head Exam Head Exam: ATRAUMATIC, NORMOCEPHALIC - ENT Exam ENT Exam: Mucous Membranes Moist - Neck Exam Neck Exam: Normal Inspection - Respiratory Exam Respiratory Exam: Clear to Ausculation Bilateral - Cardiovascular Exam Cardiovascular Exam: REGULAR RHYTHM - GI/Abdominal Exam GI & Abdominal Exam: Soft Assessment and Plan (1) Mass of right lung Assessment & Plan: IR for biopsy Continue present treatment GI workup Status: Acute
--- NOTE | 2018-04-04 18:20 | CP.PCM.CON ---
History of Present Illness - History of Present Illness History of Present Illness: pt is seen and examined, full consult is dictated #[id number] 1. Hyponatremia, r/o SIADH 2. Hypophhosphatemia, mild hypercalcemia, r/o Primary HPTH 3. rt lung mass, r/o malignency check urine lytes,osm, serum osm, serum uric acid, tsh, cortisol level, will consider to add nacl tab po tid or tolvaptan after w/u Past Patient History - Past Medical History & Family History Past Medical History?: Yes - Past Social History Smoking Status: Former Smoker - CARDIAC Hx Hypercholesterolemia: Yes Hx Hypertension: Yes - PULMONARY Hx Respiratory Disorders: No - NEUROLOGICAL Hx Neurological Disorder: Yes HX Cerebrovascular Accident: Yes - HEENT Hx HEENT Problems: No - RENAL Hx Chronic Kidney Disease: No - ENDOCRINE/METABOLIC Hx Endocrine Disorders: No - HEMATOLOGICAL/ONCOLOGICAL Hx Blood Disorders: No - INTEGUMENTARY Hx Dermatological Problems: No - MUSCULOSKELETAL/RHEUMATOLOGICAL Hx Musculoskeletal Disorders: Yes Hx Back Pain: Yes Hx Falls: Yes - GASTROINTESTINAL Hx Gastrointestinal Disorders: Yes Hx Constipation: Yes - GENITOURINARY/GYNECOLOGICAL Hx Genitourinary Disorders: No - PSYCHIATRIC Hx Substance Use: No - SURGICAL HISTORY Hx Surgeries: No - ANESTHESIA Hx Anesthesia: No Meds Allergies/Adverse Reactions: Allergies Allergy/AdvReac Type Severity Reaction Status Date / Time Penicillins Allergy Verified 04/01/18 14:38 - Medications Medications: Current Medications Heparin Sodium (Porcine) (Heparin) 5,000 units SC Q12 [facility] Last Admin: 04/04/18 12:59 Dose: Not Given Potassium Phosphate 15 mmole/ (Sodium Chloride) 255 mls @ 42.5 mls/hr IVPB ONCE ONE Stop: 04/04/18 19:59 Last Admin: 04/04/18 17:08 Dose: 42.5 mls/hr Morphine Sulfate (Morphine) 1 mg IVP Q4 PRN PRN Reason: Pain, severe (8-10) Pantoprazole Sodium (Protonix Ec Tab) 40 mg PO DAILY [facility] Last Admin: 04/04/18 14:23 Dose: 40 mg Polyethylene Glycol (Miralax) 17 gm PO DAILY [facility] Last Admin: 04/04/18 10:15 Dose: 17 gm Thiamine HCl (Vitamin B1 Tab) 100 mg PO DAILY [facility] Last Admin: 04/04/18 10:15 Dose: 100 mg Results - Vital Signs Recent Vital Signs: Last Vital Signs Temp 97.8 F 04/04/18 16:00 Pulse 90 04/04/18 16:00 Resp 20 04/04/18 16:00 BP 115/71 04/04/18 16:00 Pulse Ox 96 04/04/18 16:00 - Labs Result Diagrams: 04/04/18 08:04 04/04/18 19:56 Labs: Laboratory Results - last 24 hr 04/04/18 04/04/18 04/04/18 08:04 08:05 11:07 WBC 9.7 RBC 4.21 Hgb 12.5 Hct 36.2 MCV 86.1 MCH 29.7 MCHC 34.5 RDW 14.7 H Plt Count 397 MPV 8.7 Neut % (Auto) 83.0 H Lymph % (Auto) 8.0 L [place] % (Auto) 8.4 Eos % (Auto) 0.1 Baso % (Auto) 0.5 Neut # (Auto) 8.1 H Lymph # (Auto) 0.8 L [place] # (Auto) 0.8 Eos # (Auto) 0.0 Baso # (Auto) 0.0 Neutrophils % (Manual) 84 H Lymphocytes % (Manual) 8 L Monocytes % (Manual) 8 Toxic Granulation Present Platelet Estimate Normal Polychromasia Slight Hypochromasia (manual) Slight Anisocytosis (manual) Slight Sodium 125 L 125 L Potassium 3.1 L 3.5 L Chloride 90 L 88 L Carbon Dioxide 25 25 Anion Gap 13 16 BUN 14 14 Creatinine 0.6 L 0.6 L Est GFR ( Amer) > 60 > 60 Est GFR (Non-Af Amer) > 60 > 60 Random Glucose 128 H 128 H Calcium 10.4 10.5 H Phosphorus 0.9 L* 1.0 L* Magnesium 1.3 L 1.4 L Total Bilirubin 3.5 H 3.9 H AST 388 H D 417 H ALT 250 H D 266 H Alkaline Phosphatase 515 H D 584 H Total Protein 6.6 6.9 Albumin 3.8 4.0 Globulin 2.7 3.0 Albumin/Globulin Ratio 1.4 1.3
--- NOTE | 2018-04-05 00:18 | PN ---
DATE: 04/04/2018 SUBJECTIVE: The patient was seen and examined at bedside. The patient is still complaining of low back pain. Denies any new complaints. PHYSICAL EXAMINATION: GENERAL: Elderly female lying in bed in no acute distress. VITAL SIGNS: Blood pressure 138/85, pulse 86, respirations 20, temperature 97.6 degrees Fahrenheit, O2 saturation 96% on room air. HEENT: Pupils equal, round and reacting to light and accommodation. Extraocular muscles are intact. No icterus. No pallor. No oral thrush. No pharyngeal congestion. NECK: Supple. No JVD. LUNGS: Bilateral vesicular breath sounds. No wheezing. No rhonchi. CVS: S1 and S2 present. Regular. ABDOMEN: Soft. Nontender. Bowel sounds are present. No guarding. No rigidity. No rebound tenderness noted. JEWELRY BEARING MAKER: Alert, awake and oriented x3. No focal deficits noted. EXTREMITIES: No edema. Palpable peripheral pulses. MEDICATIONS: Heparin 5000 units subcu every 12 hours, morphine 1 mg IV every 4 hours p.r.n., Protonix 40 mg daily, MiraLax as needed, thiamine 100 mg daily. LABORATORY DATA: From this morning, WBC 9.7, hemoglobin 12.5, hematocrit 36.2, platelets 397. Sodium 125, potassium 3.5, chloride 88, bicarbonate 25, BUN 14, creatinine 0.6, glucose 128, calcium 10.5, phosphorus 1, magnesium 1.4, total bilirubin 3.9, AST 417, ALT 266, alkaline phosphatase 584, total protein 6.9, albumin 4. Bone scan done, results pending. ASSESSMENT AND PLAN: Elderly female with past medical history of hypertension, hyperlipidemia, chronic low back pain, admitted for right lung mass, acute renal failure, hyponatremia, hypokalemia, hypophosphatemia, possible cirrhosis of liver with multiple lesions with possible metastasis versus carcinoma of the liver. We will supplement electrolytes. We will discontinue IV fluids as her sodium is low. Rule out syndrome of inappropriate antidiuretic hormone (secretion) secondary to lung mass. Waiting for lung biopsy. We will replace potassium, phosphorus and magnesium. We will repeat labs in a.m. Obtain renal consult. Follow up with GI. Follow up with bone scan results. The patient's younger sister Gina is at bedside, at patient's request explained the patient's condition to the patient's sister. The patient's sister would like to get second opinion after all the workup is done and the patient also requesting me to convey all the information to the patient's sister. We will follow up with pulmonary regarding lung biopsy. Continue with other current medication. We will add further recommendation as her clinical course progresses. Aislinn Hennessy MD
--- NOTE | 2018-04-05 07:20 | CP.PCM.PN ---
<Esther Kelly - Last Filed: 04/05/18 07:17> Subjective - Date & Time of Evaluation Date of Evaluation: 04/05/18 Time of Evaluation: :18 - Subjective Subjective: Gastroenterology Fellow/PGY6 Progress Note Patient with unchanged low back pain without relief with sitting on sitting of bed. Notes aversion to full liquid diet, prefers clear liquids. No bowel movement yesterday. A 12-point review of systems negative except for as above. Objective - Vital Signs/Intake and Output Vital Signs (last 24 hours): Temp Pulse Resp BP Pulse Ox 98.0 F 110 H 20 116/75 95 04/05/18 00:00 04/05/18 01:48 04/05/18 00:00 04/05/18 00:00 04/05/18 00:00 Intake and Output: 04/05/18 04/05/18 06:59 18:59 Intake Total 500 Balance 500 - Medications Medications: Current Medications Bisacodyl (Dulcolax) 10 mg PO ONCE ONE Stop: 04/05/18 19:01 Heparin Sodium (Porcine) (Heparin) 5,000 units SC Q12 [facility] Last Admin: 04/04/18 21:50 Dose: 5,000 units Morphine Sulfate (Morphine) 1 mg IVP Q4 PRN PRN Reason: Pain, severe (8-10) Last Admin: 04/05/18 00:25 Dose: 1 mg Pantoprazole Sodium (Protonix Ec Tab) 40 mg PO DAILY [facility] Last Admin: 04/04/18 14:23 Dose: 40 mg Polyethylene Glycol (Miralax) 17 gm PO DAILY [facility] Last Admin: 04/04/18 10:15 Dose: 17 gm Polyethylene Glycol/Electrolytes (Golytely) 4,000 ml PO ONCE ONE Stop: 04/05/18 13:01 Thiamine HCl (Vitamin B1 Tab) 100 mg PO DAILY [facility] Last Admin: 04/04/18 10:15 Dose: 100 mg - Labs Labs: 04/04/18 08:04 04/04/18 19:56 PT 13.7 SECONDS (9.7-12.2) H 04/03/18 11:08 INR 1.3 04/03/18 11:08 - Constitutional Appears: Non-toxic, No Acute Distress - Head Exam Head Exam: ATRAUMATIC, NORMOCEPHALIC - Eye Exam Eye Exam: EOMI, PERRL. absent: Scleral icterus Pupil Exam: PERRL. absent: Miosis, Mydriatic - ENT Exam ENT Exam: Mucous Membranes Moist, Normal Oropharynx - Neck Exam Neck Exam: Full ROM, Normal Inspection - Respiratory Exam Respiratory Exam: Clear to Ausculation Bilateral. absent: Rales, Rhonchi, Wheezes - Cardiovascular Exam Cardiovascular Exam: RRR, +S1, +S2. absent: Gallop, Rubs - GI/Abdominal Exam GI & Abdominal Exam: Soft, Normal Bowel Sounds. absent: Distended, Firm, Guarding, Rigid, Tenderness, Organomegaly, Rebound - Extremities Exam Extremities Exam: absent: Pedal Edema - Back Exam Back Exam: tenderness Additional comments: low back tenderness - Neurological Exam Neurological Exam: Alert, Awake - Psychiatric Exam Psychiatric exam: Normal Affect, Normal Mood - Skin Skin Exam: Dry, Intact, Normal Color, Warm Assessment and Plan - Assessment and Plan (Free Text) Assessment: 68 year old female with PMH of alcoholic cirrhosis, HTN, and HLD presenting with chronic low back pain. Active treatment of JONNIE 2/2 NSAIDs use/dehydration and note of multiple right lung lesions and transaminitis in setting of multiple hepatic lesions on CT C/A/P. No prior EGD or colonoscopy. Plan: -MELD 19 -pending IR lung biopsy today -pending bone scan results today -clear liquid diet today, NPO after midnight -colonoscopy Wednesday for colorectal cancer screening -ordered Golytely/Dulcolax -future CT Liver protocol once renal function medical optimized from NSAID insult to evaluate for HCC versus metastatic disease -will follow clinical course <Dylon Lombardo Y - Last Filed: 04/05/18 08:47> Objective - Vital Signs/Intake and Output Vital Signs (last 24 hours): Temp Pulse Resp BP Pulse Ox 97.7 F 98 H 18 114/72 97 04/05/18 07:10 04/05/18 07:10 04/05/18 07:10 04/05/18 07:10 04/05/18 07:10 Intake and Output: 04/05/18 04/05/18 06:59 18:59 Intake Total 500 Balance 500 - Medications Medications: Current Medications Bisacodyl (Dulcolax) 10 mg PO ONCE ONE Stop: 04/05/18 19:01 Heparin Sodium (Porcine) (Heparin) 5,000 units SC Q12 [facility] Last Admin: 04/04/18 21:50 Dose: 5,000 units Lactulose (Enulose) 20 gm PO BID [facility] Morphine Sulfate (Morphine) 1 mg IVP Q4 PRN PRN Reason: Pain, severe (8-10) Last Admin: 04/05/18 00:25 Dose: 1 mg Pantoprazole Sodium (Protonix Ec Tab) 40 mg PO DAILY [facility] Last Admin: 04/04/18 14:23 Dose: 40 mg Polyethylene Glycol/Electrolytes (Golytely) 4,000 ml PO ONCE ONE Stop: 04/05/18 13:01 Thiamine HCl (Vitamin B1 Tab) 100 mg PO DAILY [facility] Last Admin: 04/04/18 10:15 Dose: 100 mg - Labs Labs: 04/04/18 08:04 04/05/18 07:45 PT 13.7 SECONDS (9.7-12.2) H 04/03/18 11:08 INR 1.3 04/03/18 11:08 Attending/Attestation - Attestation I have personally seen and examined this patient.: Yes I have fully participated in the care of the patient.: Yes I have reviewed all pertinent clinical information, including history, physical exam and plan: Yes Notes (Text): 04/05/18 08:44 I have seen and examined patient with GI fellow. No acute events overnight, she is seen resting in bed comfortably. She continues to endorse sharp lower back pain and constipation. She denies nausea, vomiting, fever/chills. She appears more confused today, no bowel movements over past 24 hours. ETOH cirrhosis HTN Acute renal insufficiency - resolved Chronic lower back pain Pulmonary and hepatic lesions - Liquid diet as tolerated - Begin lactulose therapy for HE prevention - Follow up pulmonary recommendations regarding lung biopsy scheduled for today - Will tentatively plan for colonoscopy tomorrow given presence of hepatic lesions, rule out primary colonic source. Golytely bowel preparation today, NPO after midnight. - Patient will benefit from triple phase liver CT for further evaluation - Will continue to monitor patient clinical course
--- NOTE | 2018-04-05 07:38 | CON ---
DATE: 04/04/2018 RENAL CONSULTATION LOCATION: The patient is located in room 559, bed A. REQUESTED BY: Aislinn Hennessy MD REASON FOR CONSULTATION: Hyponatremia, rule out SIADH and electrolyte imbalance. HISTORY OF PRESENT ILLNESS: Mrs. Gli is about 68-year-old elderly female with a past medical history significant for hypertension since 1988 and hyperlipidemia and CVA in 1999 with left-sided weakness and ambulates with cane in the house, and who is also an ex-smoker, quit about 3 years ago, with 50-pack years of smoking history, who was admitted with chief complaints of lower back pain for the last 3 to 4 weeks and bilateral leg swelling and also abdominal distention, feeling weak and tired and admitted for further evaluation. The patient was found to have a right lung mass and being evaluated for malignancy. The patient is not in acute distress, complains of back pain and also bilateral leg swelling. No chest pain. No palpitation. No nausea, vomiting, or diarrhea. No headache. No dizziness. No fever. No cough. PAST MEDICAL HISTORY: Significant for hypertension since 1988, hyperlipidemia, and CVA in 1999. PAST SURGICAL HISTORY: Denies. ALLERGIES: ALLERGIC TO PENICILLIN. SOCIAL HISTORY: The patient is an ex-smoker. Quit about 3 years ago. Used to smoke one pack to three-fourths of a pack since age 18 to age 68, and also the patient is drinking beer. She drinks 2 to 3 times a week, each time about 4 to 5 beers and no drug abuse. The patient is single. No children. FAMILY HISTORY: Both parents and she had five brothers who all are . She has seven sisters and one sister . CURRENT MEDICATIONS: Include as follows: Subcu heparin 5000 units every 12 hours, MiraLAX, and also morphine 1 mg IV every 4 hours p.r.n., Protonix 40 mg p.o. daily, and thiamine 100 mg p.o. daily. REVIEW OF SYSTEMS: Significant for back pain and bilateral leg swelling and weakness and shortness of breath with dyspnea on exertion. All other review of systems are reviewed and are negative. PHYSICAL EXAMINATION: VITAL SIGNS: As follows: Blood pressure 115/71, pulse 90, respirations 20, temperature 97.8, saturation 96%. Height 5 feet 4 inches, weight is 135 pounds. GENERAL: Mrs. Gil is a 68-year-old elderly female, resting comfortably, not in distress. HEENT: Pupils normal and reactive to light and accommodation. Conjunctivae pink. Sclerae anicteric. Tongue is moist. NECK: Trachea is midline. LUNGS: Symmetric on both sides. Bilateral breath sounds present. No crackles. CVS: [place] at the fifth intercostal space, midclavicular line. S1, S2 audible. No murmur or gallop. ABDOMEN: Distended and dullness on percussion at the epigastric region and also right upper quadrant. Liver is palpable, firm and consistent, and palpable 4 fingerbreadths below the right costal margin. ABDOMEN: Soft. No guarding. No rigidity. Hepatomegaly present and no abdominal bruit. Bowel sounds present. BREAK OFF WORKER: The patient is alert, awake, and oriented x3. Nonfocal neuro examination. Cranial nerves II through XII grossly intact. Sensory and motor system is within normal limits. EXTREMITIES: No cyanosis, no clubbing. The patient has 1 to 2+ edema in both lower extremities. LABORATORY DATA: Include as follows: As of 04/04/2018, WBC 9.7, hemoglobin 12.5, hematocrit is 36.2, platelets 397. Sodium 125, potassium 3.5, chloride 88, CO2 25, BUN 14, creatinine 0.6, glucose 128, calcium 10.5, phosphorus is 1, magnesium 1.4. Total bili 3.9, AST 417, ALT 266, alkaline phosphatase 584, total protein 6.9, albumin is 4. Other laboratory data: Alpha-fetoprotein level is 3.3. Carcinoembryonic antigen is 2, CA19-9 is 383, and CA-125 is 212. TSH is 0.8, hepatitis C antibody is negative, B surface antigen negative, hepatitis B core antibody is negative, hep C antibody is negative. Bone scan report is pending as of 04/03/2018. Impression, CT of the chest: 4.3 cm solid mass involving both right upper and middle lobes of the lung with adjacent 1.8 x 1.3 x 1.2 cm right mid pole nodule, associated mediastinal and hilar lymphadenopathy. These findings are concerning for malignancy, clinical correlation. A 3 cm cavity mass in the left lower lobe of the lung medially, clinical correlation. CT of the abdomen and pelvis as of 04/01/2018, impression: Right lower lobe cavity lesion. Consideration includes cavitary malignant neoplasm versus infection such as tuberculosis, fungal infection, nodular hepatic contour consistent with cirrhosis, heterogenous hepatic parenchyma with numerous subtle low-density regions which raise concern for an underlying neoplasm or metastasis. Recommended contrast and CT or triple-phase liver CT for further evaluation of hepatomegaly, left adrenal gland hypertrophy, liver nodular hepatic contour is seen in setting of cirrhosis, hepatomegaly, heterogenous hepatic parenchyma with subtle regions of hypodensity, unremarkable, unenhanced. Gallbladder. biliary ducts, pancreas, mild atrophy. Spleen unremarkable, unenhanced appearance. Kidneys and ureter, no hydronephrosis or obstruction, obstructing renal calculi, probable 10-mm right renal cyst. Urinary bladder appears unremarkable and atrophic uterus. ASSESSMENT: In summary, Mrs. Gil is a 68-year-old elderly female with hypertension, hyperlipidemia, and cerebrovascular accident, with history of smoking, alcohol abuse, who was admitted with low back pain and found to have a right lung mass and cavitary lesion in the left lung with hepatomegaly, increased liver function tests, and low serum sodium. The patient was admitted with a serum sodium of about 134 on 04/01/2018 and on 04/02/2018, 132, on 04/04/2018 it is 125. 1. Hyponatremia, rule out syndrome of inappropriate antidiuretic hormone secretion. 2. Lung mass, rule out malignancy. 3. Rule out cirrhosis versus rule out metastatic disease. 4. Mild hypercalcemia and hyperphosphatemia, rule out primary hyperparathyroidism. 5. Hypomagnesemia. 6. Left adrenal hypertrophy. PLAN: We will check urine electrolytes, osmolality, serum osmolality, and also serum uric acid level, TSH, and serum cortisol level. We will consider tolvaptan if serum sodium continued to drop below 125. Otherwise, we will try to restrict fluids to 1 liter per day and sodium chloride tablet 1 g p.o. t.i.d. after the workup is back. We will follow with you. Thank you for allowing me to participate in your patient's care. Follow up with Pulmonary for possible CT-guided biopsy or bronchoscopy. Britney Hennessy MD
[2018-04-05 08:10] LABS: BLOOD UREA NITROGEN 11 mg/dL (7-17); GFR NON-AFRICAN AMERICAN > 60
[2018-04-05] MEDS: Pantoprazole 40 mg EC Tab PO SCH (10:19)
--- NOTE | 2018-04-05 10:21 | CP.PCM.PN ---
Subjective - Date & Time of Evaluation Date of Evaluation: 04/05/18 Time of Evaluation: 10:21 - Subjective Subjective: Progress note dictated # [id number] Objective - Vital Signs/Intake and Output Vital Signs (last 24 hours): Temp Pulse Resp BP Pulse Ox 97.7 F 98 H 18 114/72 97 04/05/18 07:10 04/05/18 07:10 04/05/18 07:10 04/05/18 07:10 04/05/18 07:10 Intake and Output: 04/05/18 04/05/18 06:59 18:59 Intake Total 500 Balance 500 - Medications Medications: Current Medications Bisacodyl (Dulcolax) 10 mg PO ONCE ONE Stop: 04/05/18 19:01 Heparin Sodium (Porcine) (Heparin) 5,000 units SC Q12 [facility] Last Admin: 04/05/18 10:19 Dose: Not Given Lactulose (Enulose) 20 gm PO BID [facility] Morphine Sulfate (Morphine) 1 mg IVP Q4 PRN PRN Reason: Pain, severe (8-10) Last Admin: 04/05/18 00:25 Dose: 1 mg Pantoprazole Sodium (Protonix Ec Tab) 40 mg PO DAILY [facility] Last Admin: 04/05/18 10:19 Dose: 40 mg Polyethylene Glycol/Electrolytes (Golytely) 4,000 ml PO ONCE ONE Stop: 04/05/18 13:01 Thiamine HCl (Vitamin B1 Tab) 100 mg PO DAILY [facility] Last Admin: 04/05/18 10:19 Dose: 100 mg - Labs Labs: 04/04/18 08:04 04/05/18 07:45 PT 13.7 SECONDS (9.7-12.2) H 04/03/18 11:08 INR 1.3 04/03/18 11:08
--- NOTE | 2018-04-05 10:28 | CP.PCM.PN ---
Subjective - Date & Time of Evaluation Date of Evaluation: 04/05/18 Time of Evaluation: 10:27 - Subjective Subjective: pt is s een and examined, follow up consult is dictated #[id number] 1. hyponatremia, most likley sec to SIADH sec to Malignency will add tolvaptan 30 mg po x 1 Objective - Vital Signs/Intake and Output Vital Signs (last 24 hours): Temp Pulse Resp BP Pulse Ox 97.7 F 98 H 18 114/72 97 04/05/18 07:10 04/05/18 07:10 04/05/18 07:10 04/05/18 07:10 04/05/18 07:10 Intake and Output: 04/05/18 04/05/18 06:59 18:59 Intake Total 500 Balance 500 - Medications Medications: Current Medications Bisacodyl (Dulcolax) 10 mg PO ONCE ONE Stop: 04/05/18 19:01 Heparin Sodium (Porcine) (Heparin) 5,000 units SC Q12 [facility] Last Admin: 04/05/18 10:19 Dose: Not Given Lactulose (Enulose) 20 gm PO BID [facility] Morphine Sulfate (Morphine) 1 mg IVP Q4 PRN PRN Reason: Pain, severe (8-10) Last Admin: 04/05/18 00:25 Dose: 1 mg Pantoprazole Sodium (Protonix Ec Tab) 40 mg PO DAILY [facility] Last Admin: 04/05/18 10:19 Dose: 40 mg Polyethylene Glycol/Electrolytes (Golytely) 4,000 ml PO ONCE ONE Stop: 04/05/18 13:01 Thiamine HCl (Vitamin B1 Tab) 100 mg PO DAILY [facility] Last Admin: 04/05/18 10:19 Dose: 100 mg - Labs Labs: 04/04/18 08:04 04/05/18 07:45 PT 13.7 SECONDS (9.7-12.2) H 04/03/18 11:08 INR 1.3 04/03/18 11:08
[2018-04-05] MEDS ORDERED: Tolvaptan 15 MG TAB PO ONE (11:00)
--- NOTE | 2018-04-05 11:26 | NM ---
Date of service: 04/04/2018 PROCEDURE: Whole Body Bone Scan HISTORY: r/o Mets Right lung mass. COMPARISON: None available. TECHNIQUE: Following administration of 24.2 miCu of Tc MDP multiplanar whole body images were obtained. FINDINGS: Evidence for bony metastatic disease: None. Degenerative uptake: None. Physiologic uptake: Normal physiologic activity in the kidneys. Other findings: None. IMPRESSION: No evidence of bony metastatic disease.
[2018-04-05] MEDS ORDERED: Lidocaine Hydrochloride 5 ML INJ ONE (12:19)
[2018-04-05] MEDS ORDERED: Midazolam 2 MG/2 ML VIAL ONE (12:19)
--- NOTE | 2018-04-05 12:39 | PCM.SURG1 ---
Surgeon's Initial Post Op Note - Surgeon's Notes Surgeon: Pepe Borden MD Sales Inspector: NONE Type of Anesthesia: IV Sedation Pre-Operative Diagnosis: LUng mass Operative Findings: CT showed a 4 cm RUL lung mass Post-Operative Diagnosis: Lung mass Operation Performed: CT guided biopsy of right lung mass Specimen/Specimens Removed: 20 g core x 3 Estimated Blood Loss: EBL {In ML}: 0 Blood Products Given: N/A Drains Used: No Drains Post-Op Condition: Fair Date of Surgery/Procedure: 04/05/18 Time of Surgery/Procedure: 12:35
[2018-04-05] MEDS ORDERED: Peg-Electrolyte Oral Soln 4L (Golytely) PO ONE (13:00)
--- NOTE | 2018-04-05 14:33 | CT ---
PROCEDURE: Date of procedure: 04/05/2018 Procedure: 1. CT-guided lung mass biopsy, CPT [address] Guidance for biopsy, 70080 Radiation: 418 mGy-cm Medications: The patient was sedated by anesthesiologist along with physiologic monitoring. HISTORY: Right upper lobe lung mass. TECHNIQUE: Following informed consent, the Pt's chest was marked. The Pt was placed prone on the CT table and procedure time out was performed. A noncontrast CT scan was performed. Noncontrast CT scan confirmed the presence of a peripheral 4.5 cm right upper lobe mass. A skin localizer was placed on the patient's right chest and a repeat CT scan was performed. The skin was marked, prepped, and draped in the usual sterile fashion. After the skin was anesthetized with lidocaine and the patient sedated by the anesthesiologist, a 20 gauge core needle was advanced percutaneously under direct CT guidance into the mass. Upon confirmation of needle position, three 20-gauge core specimens were obtained and sent for routine pathology. The needle was removed and a xeroform dressing was applied. A post biopsy CT scan showed no pneumothorax. IMPRESSION: CT guided core biopsy right lung mass.
--- NOTE | 2018-04-05 14:55 | RAD ---
Date of service: 04/05/2018 PROCEDURE: CHEST RADIOGRAPH, 1 VIEW HISTORY: Status post right lung mass biopsy COMPARISON: None available. FINDINGS: LUNGS: Noted is a 4.7 centimeter mass in the right upper lobe. PLEURA: There is no pneumothorax seen following lung biopsy. CARDIOVASCULAR: Normal. OSSEOUS STRUCTURES: No significant abnormalities. VISUALIZED UPPER ABDOMEN: Normal. OTHER FINDINGS: None. IMPRESSION: No pneumothorax following biopsy of right lung mass.
--- NOTE | 2018-04-05 16:54 | CP.PCM.PN ---
Subjective - Date & Time of Evaluation Date of Evaluation: 04/05/18 Time of Evaluation: 12:50 - Subjective Subjective: patient seen and examined Status post lung biopsy No shortness of breath for colonoscopy tomorrow Objective - Vital Signs/Intake and Output Vital Signs (last 24 hours): Temp Pulse Resp BP Pulse Ox 97.7 F 98 H 18 114/72 97 04/05/18 07:10 04/05/18 07:10 04/05/18 07:10 04/05/18 07:10 04/05/18 07:10 Intake and Output: 04/05/18 04/05/18 06:59 18:59 Intake Total 500 Balance 500 - Medications Medications: Current Medications Bisacodyl (Dulcolax) 10 mg PO ONCE ONE Stop: 04/05/18 19:01 Heparin Sodium (Porcine) (Heparin) 5,000 units SC Q12 [facility] Last Admin: 04/05/18 10:19 Dose: Not Given Lactulose (Enulose) 20 gm PO BID [facility] Morphine Sulfate (Morphine) 1 mg IVP Q4 PRN PRN Reason: Pain, severe (8-10) Last Admin: 04/05/18 00:25 Dose: 1 mg Pantoprazole Sodium (Protonix Ec Tab) 40 mg PO DAILY [facility] Last Admin: 04/05/18 10:19 Dose: 40 mg Thiamine HCl (Vitamin B1 Tab) 100 mg PO DAILY [facility] Last Admin: 04/05/18 10:19 Dose: 100 mg - Labs Labs: 04/04/18 08:04 04/05/18 07:45 PT 13.7 SECONDS (9.7-12.2) H 04/03/18 11:08 INR 1.3 04/03/18 11:08 - Head Exam Head Exam: ATRAUMATIC, NORMOCEPHALIC - ENT Exam ENT Exam: Mucous Membranes Moist - Neck Exam Neck Exam: Normal Inspection - Respiratory Exam Respiratory Exam: Clear to Ausculation Bilateral - Cardiovascular Exam Cardiovascular Exam: REGULAR RHYTHM - GI/Abdominal Exam GI & Abdominal Exam: Soft, Normal Bowel Sounds Assessment and Plan (1) Mass of right lung Assessment & Plan: status post lung biopsy Pathology report Continue present treatment Status: Acute
[2018-04-05 18:03] LABS: BASO % 0.4 % (0.0-2.0); EOS % 0.2 % (0.0-4.0); HEMOGLOBIN 14.1 g/dL (11.0-16.0); LYMPH % 9.6 % (20.0-40.0); MEAN CELL VOLUME 85.9 fL (81.0-99.0); MEAN CORPUSCULAR HGB CONC 34.9 g/dL (33.0-37.0); MEAN PLATELET VOLUME 9.1 fL (7.2-11.7); MONO % 9.3 % (0.0-10.0); NEUT # 8.8 K/uL (1.8-7.0); NEUT % 80.5 % (50.0-75.0); NRBC % 0.1 % (0.0-2.0); PLATELET COUNT 433 K/uL (130-400); RBC 4.69 Mil/uL (3.80-5.20); RED CELL DISTRIBUTION WIDTH 14.6 % (11.5-14.5); WHITE BLOOD COUNT 10.9 K/uL (4.8-10.8)
[2018-04-05 18:04] LABS: BLOOD UREA NITROGEN 12 mg/dL (7-17); CALCIUM 10.4 mg/dl (8.6-10.4); GFR NON-AFRICAN AMERICAN > 60
[2018-04-05] MEDS ORDERED: Bisacodyl 5mg EC Tab PO ONE (19:00)
[2018-04-05 19:32] LABS: EOSINOPHIL 1 % (0-4); LYMPHOCYTE 8 % (20-40); MONOCYTE 6 % (0-10); NEUTROPHIL 85 % (50-75); TOTAL CELLS COUNTED 100
[2018-04-05 19:33] LABS: PLATELET ESTIMATE SLIGHTLY INCREASED (NORMAL)
[2018-04-05] MEDS ORDERED: Potassium Phosphate 15 MMOLE in Sodium Chloride 0.9% 250 ML IVPB ONE (20:20)
[2018-04-05] MEDS: Sodium Chloride 0.9% 1,000 ML IV SCH (22:11)
--- NOTE | 2018-04-06 00:12 | PN ---
DATE: 04/05/2018 SUBJECTIVE: The patient was seen and examined at bedside. The patient is scheduled for lung biopsy today. Denies any new complaints. All other systems reviewed and were found to be negative. PHYSICAL EXAMINATION: GENERAL: Elderly female, lying in bed in no acute distress. VITAL SIGNS: Blood pressure 115/80, pulse 102, respirations 20, temperature 97.3 degrees Fahrenheit, O2 is 97% on room air. HEENT: Pupils equal, round, reacting to light and accommodation. Extraocular muscles intact. No icterus. No pallor. No oral thrush. No pharyngeal congestion. NECK: Supple. No JVD. LUNGS: Bilateral vesicular breath sounds. No wheezing. No rhonchi. CARDIOVASCULAR SYSTEM: S1 and S2 present, regular. ABDOMEN: Soft. Nontender. Bowel sounds are present. No guarding. No rigidly. No rebound tenderness noted. CENTRAL NERVOUS SYSTEM: Alert, awake, and oriented x3. No focal deficits noted. EXTREMITIES: No edema. MEDICATIONS: Include heparin 5000 units subcutaneous every 12 hours, lactulose 20 g p.o. b.i.d., morphine as needed for pain, Protonix 40 mg daily, sodium chloride 1 g p.o. b.i.d., thiamine 100 mg p.o. daily. LABORATORY DATA: WBC 10.9, hemoglobin 14.1, hematocrit 40.3, platelets 433. Sodium 129, potassium 3.6, chloride 89, bicarb 26, BUN 12, creatinine 0.7, glucose 83, calcium 10.4, phosphorus is 1.7, magnesium 1.6. Bone scan negative for any bone mets. ASSESSMENT AND PLAN: Elderly female with history of hypertension, chronic back pain, hyperlipidemia. Admitted for right lung mass; hepatic lesions, metastatic versus hepatocellular carcinoma; status post acute renal failure; electrolyte imbalance; hyponatremia. The patient underwent lung biopsy this morning. For possible colonoscopy in the morning, the patient will be kept nothing by mouth. Supplement K-Phos and magnesium. The patient received one dose of tolvaptan with improved sodium to 129. We will start the patient on sodium chloride tablet. We will follow up with lung biopsy report. Follow up with Gastroenterology and Pulmonary. We will obtain oncology evaluation after biopsy reports available. Aislinn Hennessy MD [facility] # [id number]
--- NOTE | 2018-04-06 02:10 | PN ---
DATE: 04/05/2018 FOLLOWUP RENAL CONSULTATION LOCATION: The patient is located in room 559, Bed A. REQUESTED BY: Aislinn Hennessy MD REASON FOR RENAL CONSULTATION: Hyponatremia, syndrome of inappropriate antidiuretic hormone secretion. HISTORY OF PRESENT ILLNESS: Mrs. Gil is a 68-year-old elderly female with a history of hypertension, hyperlipidemia, history of CVA, history of smoking, and ETOH abuse who was admitted with chief complaints of abdominal pain and constipation for at least 3 weeks associated with nausea and back pain. The patient was found to have a right lung mass and renal consult was requested for evaluation of hyponatremia. The patient denies any headache, dizziness. Denies any chest pain or palpitation. Denies any fever or cough. No shortness of breath. No abdominal pain. The patient is n.p.o., and scheduled for CT-guided lung biopsy. PHYSICAL EXAMINATION: VITAL SIGNS: As follows: Blood pressure 114/72, pulse 98, respirations 18, temperature 97.7, saturation 97%. Height 5 feet 4 inches, weight is 135 pounds. GENERAL: Mrs. Gil is a 68-year-old elderly female, moderately built, moderately nourished, not in distress. HEENT: Pupils normal and reactive to light and accommodation. Conjunctivae pink. Sclerae anicteric. Tongue is moist. Trachea is midline. LUNGS: Symmetric on both sides. Bilateral breath sounds present. No crackles. CVS: [place] at the fifth intercostal space, midclavicular line. S1, S2 audible. No murmur, no gallop. ABDOMEN: Normal in appearance. Soft. Tympanitic. The patient has a hepatomegaly. Liver is palpable three to four fingerbreadth below the right costal margin. No abdominal bruit. GENERAL MEDICAL PRACTITIONER: The patient is alert, awake, and oriented x3. Nonfocal neuro examination. Cranial nerves II through XII grossly intact. Sensory and motor system is within normal limits. EXTREMITIES: No cyanosis, no clubbing. The patient has 1 to 2+ edema in both lower extremities. LABORATORY DATA: Include as follows: As of 04/05/2018, WBC 10.9, hemoglobin 14.1, hematocrit is 40.3, and platelets 433. Sodium this morning is 124, potassium is 3.5, chloride 88, CO2 of 27, BUN 11, creatinine 0.6, glucose 100, calcium is 10, phosphorus is 1.7, magnesium 1.6, TSH level is 0.8, serum cortisol level is 27.2. Urine osmolality is 448. Urine sodium is 7, urine 112, and serum osmolality is 271. Other laboratory data: Bone scan report as of 04/03/2018, no evidence of bony metastatic disease, status post CT-guided core biopsy of the right lung mass was done on 04/05/2018, awaiting for results, and chest x-ray as of 04/05/2018, no pneumothorax following the biopsy of the right lung mass. IMPRESSION: In summary, Mrs. Gil is a 68-year-old elderly female with a history of hypertension, hyperlipidemia, cerebral vascular accident, smoker who was admitted with back pain and found to have large right lung mass and underwent a CT-guided lung biopsy today with low sodium. Hyponatremia, rule out syndrome of inappropriate antidiuretic hormone secretion, cannot rule out superimposed prerenal component. PLAN: We will give tolvaptan one dose and also we will start on IV fluids normal saline at 70 mL/hour, and follow up BMP in a.m. We will follow with you. Thank you for allowing me to participate in your patient's care. Britney Hennessy MD
[2018-04-06 08:58] LABS: BASO % 0.3 % (0.0-2.0); EOS % 0.1 % (0.0-4.0); HEMOGLOBIN 13.3 g/dL (11.0-16.0); LYMPH % 7.8 % (20.0-40.0); MEAN CELL VOLUME 87.1 fL (81.0-99.0); MEAN CORPUSCULAR HEMOGLOBIN 29.6 pg (27.0-31.0); MEAN PLATELET VOLUME 8.9 fL (7.2-11.7); NEUT # 10.3 K/uL (1.8-7.0); NEUT % 83.8 % (50.0-75.0); PLATELET COUNT 430 K/uL (130-400); RBC 4.51 Mil/uL (3.80-5.20); RED CELL DISTRIBUTION WIDTH 14.9 % (11.5-14.5); WHITE BLOOD COUNT 12.3 K/uL (4.8-10.8)
[2018-04-06 09:32] LABS: ALB/GLOB RATIO 1.4 (1.0-2.1); ALBUMIN 3.8 g/dL (3.5-5.0); ALT/SGPT 255 U/L (9-52); AST/SGOT 278 U/L (14-36); BLOOD UREA NITROGEN 13 mg/dL (7-17); CALCIUM 9.8 mg/dl (8.6-10.4); GFR NON-AFRICAN AMERICAN > 60; URIC ACID 10.3 mg/dL (2.2-7.5)
[2018-04-06 10:21] LABS: LYMPHOCYTE 5 % (20-40); MONOCYTE 5 % (0-10); NEUTROPHIL 90 % (50-75); TOTAL CELLS COUNTED 100
[2018-04-06 10:22] LABS: PLATELET ESTIMATE NORMAL (NORMAL)
--- NOTE | 2018-04-06 11:02 | CP.PCM.PN ---
Subjective - Date & Time of Evaluation Date of Evaluation: 04/06/18 Time of Evaluation: 11:02 - Subjective Subjective: Progress note dictated #[id number] Objective - Vital Signs/Intake and Output Vital Signs (last 24 hours): Temp Pulse Resp BP Pulse Ox 97.5 F L 106 H 20 129/82 96 04/06/18 08:00 04/06/18 08:00 04/06/18 08:00 04/06/18 08:00 04/06/18 08:00 - Medications Medications: Current Medications Heparin Sodium (Porcine) (Heparin) 5,000 units SC Q12 [facility] Last Admin: 04/05/18 21:10 Dose: Not Given Sodium Chloride (Sodium Chloride 0.9%) 1,000 mls @ 70 mls/hr IV .[id number] [facility] Stop: 04/06/18 22:01 Last Admin: 04/05/18 22:11 Dose: Not Given Lactulose (Enulose) 20 gm PO BID [facility] Morphine Sulfate (Morphine) 1 mg IVP Q4 PRN PRN Reason: Pain, severe (8-10) Last Admin: 04/06/18 00:38 Dose: 1 mg Pantoprazole Sodium (Protonix Ec Tab) 40 mg PO DAILY [facility] Last Admin: 04/05/18 10:19 Dose: 40 mg Thiamine HCl (Vitamin B1 Tab) 100 mg PO DAILY [facility] Last Admin: 04/05/18 10:19 Dose: 100 mg - Labs Labs: 04/06/18 08:40 04/06/18 08:40 PT 13.7 SECONDS (9.7-12.2) H 04/03/18 11:08 INR 1.3 04/03/18 11:08
[2018-04-06 11:24] LABS: INR 1.3; PROTHROMBIN TIME 13.9 SECONDS (9.7-12.2)
[2018-04-06] MEDS: Pantoprazole 40 mg EC Tab PO SCH (12:07)
[2018-04-06] MEDS ORDERED: Propofol 10 mg/ml Inj (20 ML) ONE (13:04)
[2018-04-06] MEDS: Sodium Chloride 0.9% 1,000 ML IV SCH (15:17)
[2018-04-06] MEDS ORDERED: Iodixanol 320 MG/ML 100 ML BOTTLE IV ONE (17:29)
--- NOTE | 2018-04-06 18:55 | CP.PCM.PN ---
Subjective - Date & Time of Evaluation Date of Evaluation: 04/06/18 Time of Evaluation: 18:54 - Subjective Subjective: pt is seen and examined, follow up consult is dictated #[id number] bmp in am c/w ivf ns Objective - Vital Signs/Intake and Output Vital Signs (last 24 hours): Temp Pulse Resp BP Pulse Ox 98.4 F 106 H 20 130/81 95 04/06/18 15:00 04/06/18 15:00 04/06/18 15:00 04/06/18 15:00 04/06/18 15:00 Intake and Output: 04/06/18 04/06/18 06:59 18:59 Intake Total 200 Balance 200 - Medications Medications: Current Medications Heparin Sodium (Porcine) (Heparin) 5,000 units SC Q12 [facility] Last Admin: 04/06/18 15:03 Dose: Not Given Sodium Chloride (Sodium Chloride 0.9%) 1,000 mls @ 70 mls/hr IV .[id number] [facility] Stop: 04/06/18 22:01 Last Admin: 04/06/18 15:17 Dose: 70 mls/hr Lactulose (Enulose) 20 gm PO BID [facility] Morphine Sulfate (Morphine) 1 mg IVP Q4 PRN PRN Reason: Pain, severe (8-10) Last Admin: 04/06/18 00:38 Dose: 1 mg Pantoprazole Sodium (Protonix Ec Tab) 40 mg PO DAILY [facility] Last Admin: 04/06/18 12:07 Dose: Not Given Thiamine HCl (Vitamin B1 Tab) 100 mg PO DAILY [facility] Last Admin: 04/06/18 12:07 Dose: Not Given - Labs Labs: 04/06/18 08:40 04/06/18 08:40 PT 13.9 SECONDS (9.7-12.2) H 04/06/18 11:10 INR 1.3 04/06/18 11:10
--- NOTE | 2018-04-06 22:51 | PN ---
DATE: 04/06/2018 SUBJECTIVE: The patient was seen and examined at bedside. The patient was awaiting for colonoscopy this morning. She was complaining of water in her left ear while she was taking shower and complaining of fullness in the left ear. Denies any other complaints. PHYSICAL EXAMINATION: GENERAL: Elderly female, lying in bed, in no acute distress. VITAL SIGNS: Blood pressure 148/79, pulse 101, respirations 20, temperature 97.4 degrees Fahrenheit, O2 sat is 96% on 2 liters nasal cannula. HEENT: Pupils equal, round, and reacting to light and accommodation. Extraocular muscles intact. No icterus. No pallor. No oral thrush. No pharyngeal congestion. NECK: Supple. No JVD. LUNGS: Bilateral vesicular breath sounds. No wheezing. No rhonchi. CARDIOVASCULAR SYSTEM: S1, S2 present, regular. ABDOMEN: Soft, nontender. Bowel sounds present. No guarding. No rigidity. No rebound tenderness noted. CENTRAL NERVOUS SYSTEM: Alert, awake, oriented x3. No focal deficits noted. EXTREMITIES: Bilateral lower extremity swelling noted, which was pitting in nature. Palpable peripheral pulses. MEDICATIONS: Include subcutaneous heparin 5000 units every 12 hours, lactulose 20 g p.o. b.i.d., morphine 1 mg IV every four hours, Protonix 40 mg daily, and IV fluids normal saline at 70 mL in an hour. LABORATORY DATA: WBC 12.3, hemoglobin 13.3, hematocrit 39.2, platelets 430. Sodium 131, potassium 3.4, chloride 91, bicarb 24, BUN 13, creatinine 0.6, glucose 84, calcium 9.8. Uric acid 10.3. Phosphorus 2.7, magnesium 1.4. Total bilirubin 4.2, AST 278, ALT 255, alkaline phosphatase 580. ASSESSMENT AND PLAN: Elderly female with history of hyperlipidemia, hypertension, chronic low back pain, admitted for right lung mass, hepatic lesions, hyponatremia, electrolyte imbalance, status post lung biopsy, underwent colonoscopy this morning. Awaiting for lung biopsy results. Her sodium is slightly better. Supplement electrolytes. Supplement magnesium. We will obtain lower extremity venous Doppler to rule out deep venous thrombosis. We will add further recommendation as her clinical course progresses. Aislinn Hennessy MD [facility] # [id number]
--- NOTE | 2018-04-07 01:11 | PN ---
DATE: 04/06/2018 FOLLOWUP RENAL CONSULTATION LOCATION: The patient is located in room 559, bed A. REASON FOR RENAL CONSULTATION: Hyponatremia, rule out SIADH. REQUESTED BY: Aislinn Hennessy MD SUBJECTIVE: Mrs. Gil is about 68-year-old elderly female with a past medical history significant for hypertension, hyperlipidemia, CVA with left-sided weakness, ambulatory with a cane in the house who was also ex-smoker, admitted with a chief complaint of lower back pain for the last three to four weeks and bilateral leg swelling. The patient was also found to have abdominal distention and also right lung mass, status post CT-guided lung mass biopsy yesterday. The patient also underwent colonoscopy today. The patient is feeling better, not in distress. No chest pain. No palpitation. No fever. No cough. No abdominal pain today but still complains of abdominal distention. No nausea. No vomiting. No diarrhea. PHYSICAL EXAMINATION: VITAL SIGNS: As follows: Blood pressure 130/80, pulse 106, respirations 20, temperature 98.4, saturation 95%. Height 5 feet 4 inches, and weight is 135 pounds. GENERAL: Mrs. Gil is a 68-year-old elderly female, moderately built, moderately nourished, not in acute distress. HEENT: Pupils are normal and reactive to light and accommodation. Conjunctivae pink. Sclerae anicteric. Tongue is moist and trachea is midline. LUNGS: Symmetric on both sides. Bilateral breath sounds present. Clear to auscultation. CARDIOVASCULAR SYSTEM: [place] at the fifth intercostal space, midclavicular line. S1, S2 audible. No murmur or gallop. ABDOMEN: Distended. No hepatomegaly present. Abdomen is soft, nontender. Bowel sounds present. No abdominal bruit. CENTRAL NERVOUS SYSTEM: The patient is alert, awake, oriented x3. Nonfocal neuro examination. Cranial nerves II-XII grossly intact. Sensory and motor system is within normal limits. EXTREMITIES: No cyanosis, no clubbing. The patient has 1+ edema in both lower extremities. CURRENT MEDICATIONS: Include as follows: Lactulose 20 g p.o. b.i.d., heparin 5000 units subcu every 12 hours, morphine 1 mg IV every 4 hours p.r.n., Protonix 40 mg p.o. daily, IV fluids normal saline at 70 mL per hour, and thiamine 100 mg p.o. daily. LABORATORY DATA: Include as follows as of 04/06/2018: WBC 12.3, hemoglobin 13.3, hematocrit is 39.2, platelets 430. PT 13.9, INR 1.3. Sodium 131, potassium 3.4, chloride 91, CO2 of 24, BUN 13, creatinine 0.6, glucose 84, calcium 10.3. Uric acid is 10.3. Calcium is 9.8, phosphorus 2.7, and magnesium 1.4. Total bili 4.2, AST is 278, and ALT is 255. PTH is 7, low. ASSESSMENT AND PLAN: In summary, Mrs. Gil is a 68-year-old elderly female with a history of hypertension, hyperlipidemia, cerebrovascular accident and smoker who was admitted with low back pain and also found to have a hepatomegaly with liver failure and right lung mass, status post status post CT-guided lung mass biopsy on Wednesday, and the patient is not in distress. 1. Hyponatremia, rule out prerenal azotemia versus syndrome of inappropriate secretion of antidiuretic hormone, cannot rule out combination of prerenal as the top of syndrome of inappropriate secretion of antidiuretic hormone. Plan, continue gentle intravenous hydration normal saline at 70 mL per hour and repeat basic metabolic panel in the morning. If serum sodium continued to drop tomorrow, we will discontinue intravenous fluids and then restrict fluids. 2. Right lung mass, rule out malignancy. 3. Hepatomegaly, rule out metastatic disease. Awaiting for the colonoscopy. We will follow with you. Thank you for allowing me to participate in your patient's care. Britney Hennessy MD
[2018-04-07] MEDS: Pantoprazole 40 mg EC Tab PO SCH (09:46)
--- NOTE | 2018-04-07 09:52 | CP.PCM.PN ---
Subjective - Date & Time of Evaluation Date of Evaluation: 04/07/18 Time of Evaluation: 09:52 - Subjective Subjective: Progress note dictated #Progress note dictated #[id number] Objective - Vital Signs/Intake and Output Vital Signs (last 24 hours): Temp Pulse Resp BP Pulse Ox 97.7 F 101 H 18 135/83 95 04/07/18 08:52 04/07/18 08:52 04/07/18 08:52 04/07/18 08:52 04/07/18 08:52 Intake and Output: 04/07/18 04/07/18 06:59 18:59 Intake Total 730 Balance 730 - Medications Medications: Current Medications Heparin Sodium (Porcine) (Heparin) 5,000 units SC Q12 [facility] Last Admin: 04/07/18 09:46 Dose: 5,000 units Lactulose (Enulose) 20 gm PO BID [facility] Last Admin: 04/07/18 09:46 Dose: 20 gm Morphine Sulfate (Morphine) 1 mg IVP Q4 PRN PRN Reason: Pain, severe (8-10) Last Admin: 04/07/18 09:46 Dose: 1 mg Pantoprazole Sodium (Protonix Ec Tab) 40 mg PO DAILY [facility] Last Admin: 04/07/18 09:46 Dose: 40 mg Thiamine HCl (Vitamin B1 Tab) 100 mg PO DAILY [facility] Last Admin: 04/07/18 09:46 Dose: 100 mg - Labs Labs: 04/06/18 08:40 04/06/18 08:40 PT 13.9 SECONDS (9.7-12.2) H 04/06/18 11:10 INR 1.3 04/06/18 11:10
--- NOTE | 2018-04-07 12:20 | CP.PCM.PN ---
Subjective - Date & Time of Evaluation Date of Evaluation: 04/07/18 Time of Evaluation: 12:15 - Subjective Subjective: I have seen and examined patient. No acute events overnight, she is seen sitting at bedside, appears comfortable. She continues to endorse ongoing lower back pain causing difficulty to sleep. She denies nausea, vomiting, fever /chills. Tolerating PO diet without difficulty. Review of vitals from today shows tachycardia. 12 point review of systems performed, negative aside from mentioned above. Objective - Vital Signs/Intake and Output Vital Signs (last 24 hours): Temp Pulse Resp BP Pulse Ox 97.7 F 101 H 18 135/83 95 04/07/18 08:52 04/07/18 08:52 04/07/18 08:52 04/07/18 08:52 04/07/18 08:52 Intake and Output: 04/07/18 04/07/18 06:59 18:59 Intake Total 730 Balance 730 - Medications Medications: Current Medications Heparin Sodium (Porcine) (Heparin) 5,000 units SC Q12 [facility] Last Admin: 04/07/18 09:46 Dose: 5,000 units Lactulose (Enulose) 20 gm PO BID [facility] Last Admin: 04/07/18 09:46 Dose: 20 gm Morphine Sulfate (Morphine) 1 mg IVP Q4 PRN PRN Reason: Pain, severe (8-10) Last Admin: 04/07/18 09:46 Dose: 1 mg Pantoprazole Sodium (Protonix Ec Tab) 40 mg PO DAILY [facility] Last Admin: 04/07/18 09:46 Dose: 40 mg Thiamine HCl (Vitamin B1 Tab) 100 mg PO DAILY [facility] Last Admin: 04/07/18 09:46 Dose: 100 mg - Labs Labs: 04/06/18 08:40 04/06/18 08:40 PT 13.9 SECONDS (9.7-12.2) H 04/06/18 11:10 INR 1.3 04/06/18 11:10 - Constitutional Appears: Non-toxic, No Acute Distress - Head Exam Head Exam: NORMAL INSPECTION - Eye Exam Eye Exam: EOMI, Normal appearance - ENT Exam ENT Exam: Mucous Membranes Moist - Respiratory Exam Respiratory Exam: Clear to Ausculation Bilateral - Cardiovascular Exam Cardiovascular Exam: +S1, +S2 - GI/Abdominal Exam GI & Abdominal Exam: Soft, Normal Bowel Sounds Additional comments: non tender to palpation in four quadrants - Back Exam Back Exam: tenderness - Skin Skin Exam: Dry, Intact, Normal Color, Warm Assessment and Plan - Assessment and Plan (Free Text) Assessment: ETOH cirrhosis Chronic lower back pain Pulmonary lesion - discussed with pathology, prelim results indicate SCLC Transaminitis, hepatic lesions CT liver reviewed by me showing multiple lesions consistent with metastatic disease, likely pulmonary source Plan: - Low sodium diet as tolerated - Follow up biopsy results from colonoscopy - Continue with lactulose therapy for HE prevention - Suggest oncology evaluation - No further planned GI intervention, will sign of case. Please reconsult as necessary, thank you.
--- NOTE | 2018-04-07 12:36 | CT ---
Date of service: 04/06/2018 PROCEDURE: CT Abdomen and Pelvis with and without intravenous contrast HISTORY: evaluate hepatic lesions COMPARISON: 04/01/2018 TECHNIQUE: Axial images of the abdomen were obtained in the pre contrast, portal venous and delayed phases of enhancement. Coronal and sagittal reformats were generated. Contrast dose: 100 cc of Omnipaque Radiation dose: Total exam DLP = 1362 mGy-cm. This CT exam was performed using one or more of the following dose reduction techniques: Automated exposure control, adjustment of the mA and/or kV according to patient size, and/or use of iterative reconstruction technique. FINDINGS: LOWER THORAX: Patchy left lower lobe infiltrates with left hilar mass/ adenopathy. LIVER: Hepatomegaly with innumerable heterogeneously enhancing confluent masses consistent with metastatic disease. GALLBLADDER AND BILE DUCTS: Unremarkable. PANCREAS: Unremarkable. No gross lesion or ductal dilatation. SPLEEN: Unremarkable. ADRENALS: Unremarkable. No mass. KIDNEYS AND URETERS: 2 centimeter right upper pole renal cyst. No hydronephrosis. No solid mass. VASCULATURE: Unremarkable. No aortic aneurysm. BOWEL: Unremarkable. No obstruction. No gross mural thickening. APPENDIX: Normal appendix. PERITONEUM: Unremarkable. No free fluid. No free air. LYMPH NODES: Unremarkable. No enlarged lymph nodes. BLADDER: Unremarkable. REPRODUCTIVE: Unremarkable. BONES: No acute fracture. OTHER FINDINGS: None. IMPRESSION: Patchy left lower lobe infiltrates with left hilar mass/ adenopathy. Hepatomegaly with innumerable heterogeneously enhancing confluent masses consistent with metastatic disease.
[2018-04-07 13:54] LABS: BASO % 0.3 % (0.0-2.0); EOS % 0.2 % (0.0-4.0); HEMOGLOBIN 12.6 g/dL (11.0-16.0); LYMPH # 0.8 K/uL (1.0-4.3); MEAN CELL VOLUME 87.5 fL (81.0-99.0); MEAN CORPUSCULAR HEMOGLOBIN 29.6 pg (27.0-31.0); MEAN CORPUSCULAR HGB CONC 33.8 g/dL (33.0-37.0); MEAN PLATELET VOLUME 8.9 fL (7.2-11.7); MONO # 0.7 K/uL (0.0-0.8); NEUT # 12.3 K/uL (1.8-7.0); NEUT % 88.5 % (50.0-75.0); NRBC % 0.1 % (0.0-2.0); PLATELET COUNT 396 K/uL (130-400); RBC 4.27 Mil/uL (3.80-5.20); RED CELL DISTRIBUTION WIDTH 15.3 % (11.5-14.5); WHITE BLOOD COUNT 13.8 K/uL (4.8-10.8)
[2018-04-07 14:10] LABS: ALB/GLOB RATIO 1.4 (1.0-2.1); ALBUMIN 3.7 g/dL (3.5-5.0); ALT/SGPT 233 U/L (9-52); AST/SGOT 288 U/L (14-36); BLOOD UREA NITROGEN 12 mg/dL (7-17); CALCIUM 9.7 mg/dl (8.6-10.4); GFR NON-AFRICAN AMERICAN > 60
[2018-04-07 15:03] LABS: LYMPHOCYTE 4 % (20-40); MONOCYTE 3 % (0-10); NEUTROPHIL 93 % (50-75); TOTAL CELLS COUNTED 100
[2018-04-07 15:04] LABS: PLATELET ESTIMATE NORMAL (NORMAL)
[2018-04-07] MEDS ORDERED: Magnesium Sulfate 1 gm in D5W 1 GM/100 ML BAG IVPB ONE (16:19)
--- NOTE | 2018-04-07 18:11 | CP.PCM.PN ---
Subjective - Date & Time of Evaluation Date of Evaluation: 04/07/18 Time of Evaluation: 08:40 - Subjective Subjective: patient seen and examined Lying comfortably in no distress but complaining of back pain Lung biopsy consistent with malignancy Objective - Vital Signs/Intake and Output Vital Signs (last 24 hours): Temp Pulse Resp BP Pulse Ox 97.4 F L 108 H 20 127/77 96 04/07/18 15:30 04/07/18 15:30 04/07/18 15:30 04/07/18 15:30 04/07/18 15:30 Intake and Output: 04/07/18 04/07/18 06:59 18:59 Intake Total 730 800 Balance 730 800 - Medications Medications: Current Medications Heparin Sodium (Porcine) (Heparin) 5,000 units SC Q12 [facility] Last Admin: 04/07/18 09:46 Dose: 5,000 units Lactulose (Enulose) 20 gm PO BID [facility] Last Admin: 04/07/18 17:40 Dose: 20 gm Morphine Sulfate (Morphine) 1 mg IVP Q4 PRN PRN Reason: Pain, severe (8-10) Last Admin: 04/07/18 09:46 Dose: 1 mg Pantoprazole Sodium (Protonix Ec Tab) 40 mg PO DAILY [facility] Last Admin: 04/07/18 09:46 Dose: 40 mg Thiamine HCl (Vitamin B1 Tab) 100 mg PO DAILY [facility] Last Admin: 04/07/18 09:46 Dose: 100 mg - Labs Labs: 04/07/18 13:50 04/07/18 13:50 PT 13.9 SECONDS (9.7-12.2) H 04/06/18 11:10 INR 1.3 04/06/18 11:10 - Head Exam Head Exam: ATRAUMATIC, NORMOCEPHALIC - Eye Exam Eye Exam: Normal appearance - ENT Exam ENT Exam: Mucous Membranes Moist - Respiratory Exam Respiratory Exam: Clear to Ausculation Bilateral - Cardiovascular Exam Cardiovascular Exam: REGULAR RHYTHM - GI/Abdominal Exam GI & Abdominal Exam: Soft, Normal Bowel Sounds Assessment and Plan (1) Mass of right lung Assessment & Plan: Lung biopsy consistent withmalignancy Case discussed with pathologist Rule out hyponatremia secondary to SIADH Status: Acute
[2018-04-07] MEDS: Magnesium Sulfate 1 gm in D5W 1 GM/100 ML BAG IVPB SCH ×2 (20:00→21:00)
[2018-04-07] MEDS: Potassium & Sodium Phosphate PO SCH (22:04)
--- NOTE | 2018-04-07 23:19 | CP.PCM.CON ---
History of Present Illness - History of Present Illness History of Present Illness: 68 year old female with a history of former tobacco abuse, CVA with left sided weakness, chronic back pain, admitted with worsening lower back pain. She notes to chronic back pain which has recently increased in severity over the past 2 weeks. She denies bowel and urinary incontinence. She was found to have B/L lung lesions with mediastinal lymphadenopathy and liver lesions concerning for metastasis. She has recently had a percutaneous lung lesion biopsy with preliminary pathology showing small cell lung cancer. Past medical history: CVA Past surgical history: Denies Family history: Mother had stomach cancer, brother unknown cancer Social history: Former tobacco abuse, drinks 6-7 beers weekly, denies illicit drug use Allergies: Penicillins Review of systems: All remaining review of systems including HEENT, cardiovascular, respiratory, gastrointestinal, genitourinary, musculoskeletal, dermatologic, neurologic, and psychiatric are negative unless mentioned in the HPI. Past Patient History - Past Medical History & Family History Past Medical History?: Yes - Past Social History Smoking Status: Former Smoker - CARDIAC Hx Hypercholesterolemia: Yes Hx Hypertension: Yes - PULMONARY Hx Respiratory Disorders: No - NEUROLOGICAL Hx Neurological Disorder: Yes HX Cerebrovascular Accident: Yes - HEENT Hx HEENT Problems: No - RENAL Hx Chronic Kidney Disease: No - ENDOCRINE/METABOLIC Hx Endocrine Disorders: No - HEMATOLOGICAL/ONCOLOGICAL Hx Blood Disorders: No - INTEGUMENTARY Hx Dermatological Problems: No - MUSCULOSKELETAL/RHEUMATOLOGICAL Hx Musculoskeletal Disorders: Yes Hx Back Pain: Yes Hx Falls: Yes - GASTROINTESTINAL Hx Gastrointestinal Disorders: Yes Hx Constipation: Yes - GENITOURINARY/GYNECOLOGICAL Hx Genitourinary Disorders: No - PSYCHIATRIC Hx Substance Use: No - SURGICAL HISTORY Hx Surgeries: No - ANESTHESIA Hx Anesthesia: No Meds Allergies/Adverse Reactions: Allergies Allergy/AdvReac Type Severity Reaction Status Date / Time Penicillins Allergy Verified 04/01/18 14:38 - Medications Medications: Current Medications Heparin Sodium (Porcine) (Heparin) 5,000 units SC Q12 [facility] Last Admin: 04/07/18 21:08 Dose: 5,000 units Lactulose (Enulose) 20 gm PO BID [facility] Last Admin: 04/07/18 17:40 Dose: 20 gm Morphine Sulfate (Morphine) 1 mg IVP Q4 PRN PRN Reason: Pain, severe (8-10) Last Admin: 04/07/18 09:46 Dose: 1 mg Pantoprazole Sodium (Protonix Ec Tab) 40 mg PO DAILY [facility] Last Admin: 04/07/18 09:46 Dose: 40 mg Potassium Phos/Sodium Phos (Neutra-Phos) 1 pkt PO QID [facility] Stop: 04/10/18 22:01 Last Admin: 04/07/18 22:04 Dose: 1 pkt Thiamine HCl (Vitamin B1 Tab) 100 mg PO DAILY [facility] Last Admin: 04/07/18 09:46 Dose: 100 mg Physical Exam - Head Exam Head Exam: ATRAUMATIC - Eye Exam Eye Exam: Normal appearance - ENT Exam ENT Exam: Mucous Membranes Dry - Respiratory Exam Respiratory Exam: NORMAL BREATHING PATTERN - Cardiovascular Exam Cardiovascular Exam: +S1, +S2 - GI/Abdominal Exam GI & Abdominal Exam: Normal Bowel Sounds - Extremities Exam Extremities exam: Positive for: normal inspection - Neurological Exam Neurological exam: Oriented x3 - Psychiatric Exam Psychiatric exam: Normal Affect, Normal Mood - Skin Skin Exam: Warm Results - Vital Signs Recent Vital Signs: Last Vital Signs Temp 97.4 F L 04/07/18 15:30 Pulse 109 H 04/07/18 15:55 Resp 20 04/07/18 15:30 BP 127/77 04/07/18 15:30 Pulse Ox 96 04/07/18 15:30 - Labs Result Diagrams: 04/07/18 13:50 04/07/18 13:50 Labs: Laboratory Results - last 24 hr 04/07/18 04/07/18 13:50 13:50 WBC 13.8 H RBC 4.27 Hgb 12.6 Hct 37.4 MCV 87.5 MCH 29.6 MCHC 33.8 RDW 15.3 H Plt Count 396 MPV 8.9 Neut % (Auto) 88.5 H Lymph % (Auto) 6.0 L [place] % (Auto) 5.0 Eos % (Auto) 0.2 Baso % (Auto) 0.3 Neut # (Auto) 12.3 H Lymph # (Auto) 0.8 L [place] # (Auto) 0.7 Eos # (Auto) 0.0 Baso # (Auto) 0.0 Neutrophils % (Manual) 93 H Lymphocytes % (Manual) 4 L Monocytes % (Manual) 3 Platelet Estimate Normal RBC Morphology Normal Sodium 129 L Potassium 3.7 Chloride 92 L Carbon Dioxide 27 Anion Gap 14 BUN 12 Creatinine 0.6 L Est GFR ( Amer) > 60 Est GFR (Non-Af Amer) > 60 Random Glucose 131 H Calcium 9.7 Phosphorus 2.1 L Magnesium 1.4 L Total Bilirubin 4.9 H AST 288 H ALT 233 H Alkaline Phosphatase 522 H Total Protein 6.4 Albumin 3.7 Globulin 2.7 Albumin/Globulin Ratio 1.4 Assessment & Plan (1) Metastatic cancer Assessment and Plan: awaiting final pathology report liver lesions concerning for metastatic disease will send for CT head to complete staging (declined MRI head) CT L-spine given worsening back pain Thank you for this interesting consult. Status: Acute
--- NOTE | 2018-04-08 01:45 | PN ---
DATE: 04/07/2018 SUBJECTIVE: The patient was seen and examined at bedside. The patient denies any new complaints other than low back pain. Her ears are okay. Denies any blockage or denies any other ringing in the ears. PHYSICAL EXAMINATION: GENERAL: Elderly female, lying in bed, denies any distress. VITAL SIGNS: Blood pressure 135/83, pulse 101, respirations 20, temperature 97.7 degrees Fahrenheit, O2 sat is 95% on room air. HEENT: Pupils equal, round, reacting to light and accommodation. Extraocular muscles intact. No icterus. No pallor. No oral thrush. No pharyngeal congestion. NECK: Supple. No JVD. LUNGS: Bilateral vesicular breath sounds. No wheezing. No rhonchi. CVS: S1, S2 present. Regular. ABDOMEN: Soft, nontender. Nontender. Bowel sounds present. No guarding. No rigidity. No rebound tenderness noted. UNIT CLERK: Alert, awake, oriented x3. No focal deficits noted. EXTREMITIES: Pitting edema present. MEDICATIONS: Include heparin 5000 units subcutaneous every 12 hours, lactulose 20 gm p.o. b.i.d., Morphine 1 mg IV push every four hours p.r.n., Protonix 40 mg daily, thiamine 100 mg daily. LABORATORY DATA: From this morning, WBC 13.8, hemoglobin 12.6, hematocrit 37.4, platelets 396,000. Sodium 129, potassium 3.7, chloride 92, bicarb 37, BUN 12, creatinine 0.6, glucose 131, calcium 9.7, phosphorus 2.1, magnesium 1.4, total bilirubin 4.9, AST 288, ALT 233, alkaline phosphatase 522, total protein 6.4, albumin 3.7. ASSESSMENT AND PLAN: Elderly female with history of hypertension, hyperlipidemia, chronic low back pain, admitted for right lung mass, cirrhosis of liver, possible liver metastasis, hyponatremia, status post acute renal failure, electrolyte abnormalities, abnormal liver function tests probably secondary to cirrhosis of liver, status post lung biopsy, preliminary report consistent with small cell lung carcinoma with possible metastasis to the liver. We will request oncology consult with Dr. Hernandez. We will supplement potassium and magnesium and phosphorus. Discussed with Dr. Lombardo, Gastroenterology. We will follow up with official pathology report. Continue with pain management. Discussed with the patient at length in a.m. Patient's sister earlier wanted to get second opinion after the diagnosis is made. We will discuss with the patient at length in a.m. regarding further treatment plans. Aislinn Hennessy MD
--- NOTE | 2018-04-08 09:38 | CP.PCM.PN ---
Subjective - Date & Time of Evaluation Date of Evaluation: 04/08/18 Time of Evaluation: 09:38 - Subjective Subjective: Progress note dictated # [id number] Objective - Vital Signs/Intake and Output Vital Signs (last 24 hours): Temp Pulse Resp BP Pulse Ox 97.5 F L 104 H 21 115/76 93 L 04/08/18 08:29 04/08/18 08:29 04/08/18 08:29 04/08/18 08:29 04/08/18 08:29 Intake and Output: 04/08/18 04/08/18 06:59 18:59 Intake Total 770 Balance 770 - Medications Medications: Current Medications Heparin Sodium (Porcine) (Heparin) 5,000 units SC Q12 [facility] Last Admin: 04/07/18 21:08 Dose: 5,000 units Lactulose (Enulose) 20 gm PO BID [facility] Last Admin: 04/07/18 17:40 Dose: 20 gm Morphine Sulfate (Morphine) 1 mg IVP Q4 PRN PRN Reason: Pain, severe (8-10) Last Admin: 04/08/18 03:20 Dose: 1 mg Pantoprazole Sodium (Protonix Ec Tab) 40 mg PO DAILY [facility] Last Admin: 04/07/18 09:46 Dose: 40 mg Potassium Phos/Sodium Phos (Neutra-Phos) 1 pkt PO QID [facility] Stop: 04/10/18 22:01 Last Admin: 04/07/18 22:04 Dose: 1 pkt Thiamine HCl (Vitamin B1 Tab) 100 mg PO DAILY [facility] Last Admin: 04/07/18 09:46 Dose: 100 mg - Labs Labs: 04/07/18 13:50 04/07/18 13:50 PT 13.9 SECONDS (9.7-12.2) H 04/06/18 11:10 INR 1.3 04/06/18 11:10
[2018-04-08] MEDS: Pantoprazole 40 mg EC Tab PO SCH (09:51)
[2018-04-08] MEDS: Potassium & Sodium Phosphate PO SCH ×4 (09:51→21:41)
[2018-04-08] MEDS ORDERED: Iodixanol 320 MG/ML 100 ML BOTTLE IV ONE (10:04)
--- NOTE | 2018-04-08 11:20 | CT ---
Date of service: 04/08/2018 PROCEDURE: CT HEAD WITHOUT CONTRAST. HISTORY: lung cancer staging COMPARISON: None available. TECHNIQUE: Axial computed tomography images were obtained through the head/brain without intravenous contrast. Radiation dose: Total exam DLP = mGy-cm. This CT exam was performed using one or more of the following dose reduction techniques: Automated exposure control, adjustment of the mA and/or kV according to patient size, and/or use of iterative reconstruction technique. FINDINGS: HEMORRHAGE: No intracranial hemorrhage. BRAIN: No mass effect or edema. Old right anterior cerebral artery distribution infarct. VENTRICLES: Unremarkable. No hydrocephalus. CALVARIUM: Unremarkable. PARANASAL SINUSES: Unremarkable as visualized. No significant inflammatory changes. MASTOID AIR CELLS: Unremarkable as visualized. No inflammatory changes. OTHER FINDINGS: None. IMPRESSION: Old right anterior cerebral artery distribution infarct.
--- NOTE | 2018-04-08 12:21 | CP.PCM.PN ---
Subjective - Date & Time of Evaluation Date of Evaluation: 04/08/18 Time of Evaluation: 07:00 - Subjective Subjective: patient seen and examined The shortness of breath or cough Biopsy positive for malignancy Continue present treatment for now Awaiting special stains/tumor markers Objective - Vital Signs/Intake and Output Vital Signs (last 24 hours): Temp Pulse Resp BP Pulse Ox 97.5 F L 104 H 21 115/76 93 L 04/08/18 08:29 04/08/18 08:29 04/08/18 08:29 04/08/18 08:29 04/08/18 08:29 Intake and Output: 04/08/18 04/08/18 06:59 18:59 Intake Total 770 Balance 770 - Medications Medications: Current Medications Heparin Sodium (Porcine) (Heparin) 5,000 units SC Q12 [facility] Last Admin: 04/08/18 09:51 Dose: 5,000 units Lactulose (Enulose) 20 gm PO BID [facility] Last Admin: 04/08/18 09:51 Dose: 20 gm Morphine Sulfate (Morphine) 1 mg IVP Q4 PRN PRN Reason: Pain, severe (8-10) Last Admin: 04/08/18 11:11 Dose: 1 mg Pantoprazole Sodium (Protonix Ec Tab) 40 mg PO DAILY [facility] Last Admin: 04/08/18 09:51 Dose: 40 mg Potassium Phos/Sodium Phos (Neutra-Phos) 1 pkt PO QID [facility] Stop: 04/10/18 22:01 Last Admin: 04/08/18 09:51 Dose: 1 pkt Thiamine HCl (Vitamin B1 Tab) 100 mg PO DAILY [facility] Last Admin: 04/08/18 09:51 Dose: 100 mg - Labs Labs: 04/07/18 13:50 04/07/18 13:50 PT 13.9 SECONDS (9.7-12.2) H 04/06/18 11:10 INR 1.3 04/06/18 11:10 - Head Exam Head Exam: ATRAUMATIC, NORMOCEPHALIC - ENT Exam ENT Exam: Mucous Membranes Moist - Neck Exam Neck Exam: Normal Inspection - Respiratory Exam Respiratory Exam: Clear to Ausculation Bilateral - Cardiovascular Exam Cardiovascular Exam: REGULAR RHYTHM Assessment and Plan (1) Mass of right lung Assessment & Plan: lung CA continue present treatment for now Awaiting tumor markers Status: Acute
--- NOTE | 2018-04-08 12:34 | CT ---
Date of service: 04/08/2018 PROCEDURE: CT Lumbar Spine without contrast HISTORY: back pain, newly diagnosed lung cancer COMPARISON: None available. TECHNIQUE: Axial computed tomography images were obtained of the lumbar spine without the use of intravenous contrast. Coronal and sagittal reformatted images were created and reviewed. Radiation dose: Total exam DLP = mGy-cm. This CT exam was performed using one or more of the following dose reduction techniques: Automated exposure control, adjustment of the mA and/or kV according to patient size, and/or use of iterative reconstruction technique. FINDINGS: VERTEBRAE: Unremarkable. No fracture. Normal alignment. DISCS/SPINAL CANAL/NEURAL FORAMINA: No significant disc pathology or stenosis. PARASPINAL SOFT TISSUES: Unremarkable. OTHER FINDINGS: None. IMPRESSION: Unremarkable CT of Lumbar Spine.
--- NOTE | 2018-04-08 13:30 | VASCLAB ---
Date of service: 04/07/2018 PROCEDURE: Lower Extremity Venous Duplex Exam. HISTORY: Edema PRIORS: None. TECHNIQUE: Bilateral common femoral, femoral, popliteal and posterior tibial, peroneal and great saphenous veins were evaluated. Flow was assessed with color Doppler, compressibility, assessment of phasic flow and augmentation response. Report prepared by CIRO Gold, RVT FINDINGS: RIGHT: 1. Common Femoral Vein: 1.1. Compressibility - Fully compressible: Thrombus - None : Flow - Phasic: Augmentation -Normal: Reflux - None. 2. Femoral Vein: 2.1. Compressibility - Fully compressible: Thrombus - None : Flow - Phasic: Augmentation -Normal: Reflux - None. 3. Popliteal Vein: 3.1. Compressibility - Fully compressible: Thrombus - None : Flow - Phasic: Augmentation -Normal: Reflux - None. 4. Posterior Tibial Vein: 5. Peroneal Vein: 6. Great Saphenous Vein: 6.1. Compressibility - Fully compressible: Thrombus - None: Flow - Phasic: Augmentation - Normal: Reflux - None. LEFT: 1. Common Femoral Vein: 1.1. Compressibility - Fully compressible: Thrombus - None: Flow - Phasic: Augmentation -Normal: Reflux - None. 2. Femoral Vein: 2.1. Compressibility - Fully compressible: Thrombus - None: Flow - Phasic: Augmentation -Normal: Reflux - None. 3. Popliteal Vein: 3.1. Compressibility - Fully compressible: Thrombus - None : Flow - Phasic: Augmentation -Normal: Reflux - None. 4. Posterior Tibial Vein: 5. Peroneal Vein: 6. Great Saphenous Vein: 6.1. Compressibility - Fully compressible: Thrombus - None: Flow - Phasic: Augmentation - Normal: Reflux - None. OTHER FINDINGS: Right: None significant. Left: None significant. IMPRESSION: 1. No evidence of venous thrombosis for the imaged veins, in bilateral lower extremities. 2. Bilateral posterior tibial and peroneal veins were not visualized due to edema.
--- NOTE | 2018-04-08 21:51 | PN ---
DATE: 04/08/2018 SUBJECTIVE: The patient was seen and examined at bedside. The patient is denying any new complaints. Back pain is still the same. Denies any other neurologic symptoms. All other systems reviewed and were found to be negative. PHYSICAL EXAMINATION: GENERAL: Elderly female, lying in bed, in no acute distress. VITAL SIGNS: Blood pressure 115/76, pulse 104, respirations 20, temperature 97.4 degrees Fahrenheit, O2 saturation is 93% on room air. HEENT: Pupils equal, round and reactive to light and accommodation. Extraocular muscles intact. No icterus. No pallor. No oral thrush. No pharyngeal congestion. NECK: Supple. No JVD. LUNGS: Bilateral vesicular breath sounds. No wheezing. No rhonchi. CARDIOVASCULAR SYSTEM: S1 and S2 present, regular. ABDOMEN: Soft. Nontender. Bowel sounds present. No guarding. No rigidity. No rebound tenderness noted. CENTRAL NERVOUS SYSTEM: Alert, awake, oriented x3. No focal deficits noted. EXTREMITIES: Pitting edema present. MEDICATIONS: Include heparin 5000 units subcu every 12 hours, lactulose 20 g p.o. b.i.d., morphine 1 mg IV every 4 hours p.r.n., Protonix 40 mg daily, Neutra-Phos one pack four times a day, thiamine 100 mg daily. DIAGNOSTIC DATA: CT head consistent with old right anterior cerebral artery distribution infarct. Lumbar spine is negative for any fracture or any metastasis. ASSESSMENT AND PLAN: Elderly female with history of hypertension, hyperlipidemia, chronic low back pain. Admitted for right lung mass, status post biopsy consistent with malignancy, cirrhosis of the liver with possible liver metastasis, hyponatremia. Awaiting for official pathology report. Hematology consult appreciated. Discussed with Pulmonary. Follow up with labs done today. Continue with current medications. Discussed with the patient at length and given the preliminary diagnosis to the patient. Lower extremity Doppler negative for any deep venous thrombosis. We will keep legs elevated while sitting up. We will add further recommendation after biopsy results available. Aislinn Hennessy MD
[2018-04-09] MEDS: Pantoprazole 40 mg EC Tab PO SCH (09:15)
[2018-04-09] MEDS: Potassium & Sodium Phosphate PO SCH ×4 (09:15→21:58)
--- NOTE | 2018-04-09 11:46 | CP.PCM.PN ---
Subjective - Date & Time of Evaluation Date of Evaluation: 04/09/18 Time of Evaluation: 11:46 - Subjective Subjective: Progress note dictated #[id number] Objective - Vital Signs/Intake and Output Vital Signs (last 24 hours): Temp Pulse Resp BP Pulse Ox 97.4 F L 108 H 20 139/91 H 98 04/09/18 07:30 04/09/18 07:30 04/09/18 07:30 04/09/18 07:30 04/09/18 07:30 Intake and Output: 04/09/18 04/09/18 06:59 18:59 Intake Total 240 Balance 240 - Medications Medications: Current Medications Heparin Sodium (Porcine) (Heparin) 5,000 units SC Q12 [facility] Last Admin: 04/09/18 09:15 Dose: 5,000 units Lactulose (Enulose) 20 gm PO BID [facility] Last Admin: 04/09/18 09:15 Dose: 20 gm Morphine Sulfate (Morphine) 1 mg IVP Q4 PRN PRN Reason: Pain, severe (8-10) Last Admin: 04/09/18 09:18 Dose: 1 mg Pantoprazole Sodium (Protonix Ec Tab) 40 mg PO DAILY [facility] Last Admin: 04/09/18 09:15 Dose: 40 mg Potassium Phos/Sodium Phos (Neutra-Phos) 1 pkt PO QID [facility] Stop: 04/10/18 22:01 Last Admin: 04/09/18 09:15 Dose: 1 pkt Thiamine HCl (Vitamin B1 Tab) 100 mg PO DAILY [facility] Last Admin: 04/09/18 09:15 Dose: 100 mg - Labs Labs: 04/07/18 13:50 04/07/18 13:50 PT 13.9 SECONDS (9.7-12.2) H 04/06/18 11:10 INR 1.3 04/06/18 11:10
--- NOTE | 2018-04-09 20:50 | PN ---
DATE: 04/09/2018 SUBJECTIVE: The patient was seen and examined at bedside. The patient is drowsy, but arousable. She claims that she got pain medications this morning about an hour ago prior to my evaluation. Denies any new complaints. PHYSICAL EXAMINATION: GENERAL: On examination, an elderly female, lying in bed, in no acute distress. VITAL SIGNS: Blood pressure 139/91, pulse 108, respirations 20, temperature 97.4 degrees Fahrenheit, and O2 saturations 98% on 2 L nasal cannula. HEENT: Pupils equal, round, and reacting to light and accommodation. Extraocular muscles are intact. No icterus. No pallor. No oral thrush. No pharyngeal congestion. NECK: Supple, no JVD. LUNGS: Bilateral vesicular breath sounds. No wheezing, no rhonchi. CVS: S1 and S2 present, regular. ABDOMEN: Soft and nontender. Bowel sounds present. No guarding, no rigidity, and no rebound tenderness noted. CENTRAL NERVOUS SYSTEM: Alert and awake and oriented x3. No focal deficits noted. EXTREMITIES: Edema present. MEDICATIONS: Include heparin 5000 units subcu every 12 hours, lactulose 20 g p.o. b.i.d., morphine 1 mg IV push every 4 hours p.r.n., Protonix 40 mg daily, Neutra-Phos 1 pack 4 times a day, and thiamine 100 mg daily. ASSESSMENT AND PLAN: An elderly female with history of hypertension, hyperlipidemia, and chronic low back pain, admitted for cirrhosis of the liver with multiple hepatic lesions consistent with possible metastasis. Primary could be the lung; however, official pathology report is pending. Preliminary results consistent with possible small rosemary lung cancer. CT of the head is negative for any metastasis. Bone scan was negative, and CT of the lumbosacral spine is also negative for any acute changes or any metastasis. Oncology and Pulmonary followup appreciated. The patient did not have repeat labs done. We will repeat complete blood count and comprehensive metabolic panel in a.m. to follow up with sodium level. Hyponatremia may be secondary to syndrome of inappropriate antidiuretic hormone secretion. Awaiting pathology official report, and we will follow up with Pulmonary and Oncology regarding further treatment plan. Aislinn Hennessy MD [facility] # [id number]
[2018-04-10 08:13] LABS: BASO % 0.2 % (0.0-2.0); EOS # 0.2 K/uL (0.0-0.7); EOS % 1.5 % (0.0-4.0); HEMOGLOBIN 12.9 g/dL (11.0-16.0); LYMPH # 1.5 K/uL (1.0-4.3); LYMPH % 13.8 % (20.0-40.0); MEAN CELL VOLUME 87.4 fL (81.0-99.0); MEAN CORPUSCULAR HEMOGLOBIN 29.8 pg (27.0-31.0); MEAN PLATELET VOLUME 9.4 fL (7.2-11.7); MONO % 9.2 % (0.0-10.0); NEUT # 8.4 K/uL (1.8-7.0); NEUT % 75.3 % (50.0-75.0); RBC 4.33 Mil/uL (3.80-5.20); RED CELL DISTRIBUTION WIDTH 15.6 % (11.5-14.5); WHITE BLOOD COUNT 11.1 K/uL (4.8-10.8)
[2018-04-10 08:49] LABS: ALB/GLOB RATIO 1.1 (1.0-2.1); ALBUMIN 3.4 g/dL (3.5-5.0); ALT/SGPT 248 U/L (9-52); AST/SGOT 319 U/L (14-36); BLOOD UREA NITROGEN 12 mg/dL (7-17); CALCIUM 9.4 mg/dl (8.6-10.4); GFR NON-AFRICAN AMERICAN > 60
[2018-04-10] MEDS: Pantoprazole 40 mg EC Tab PO SCH (09:45)
[2018-04-10] MEDS: Potassium & Sodium Phosphate PO SCH ×4 (09:47→21:29)
--- NOTE | 2018-04-10 13:05 | CP.PCM.PN ---
Subjective - Date & Time of Evaluation Date of Evaluation: 04/10/18 Time of Evaluation: 13:04 - Subjective Subjective: Pulmonary Evaluation The patient was Seen/interviewed and examined by me at the bedside, Medical records reviewed and Management issues were discussed and formulated with the house staff. Events reviewed 60-year-old female with history of hypertension, hyperlipidemia, low back pain presented to emergency room with low back pain and has been taking multiple pain medication without any relief. Patient denies shortness of breath, denies any chest pain but complaining of slight cough. Chest x-ray done in the emergency consistent with a right lung mass followed by CAT scan of the chest with possible metastases to liver. Patient has history of smoking and quit many years ago. Denies hemoptysis but complaining of weight loss Patient feeling better today Offers no new complains No chest pain, Less Dyspnea Patient awake, AAO x3, comfortable, NAD Afebrile Seen by oncology, awaiting special staining, L/S spine CT scan and official reports Objective - Vital Signs/Intake and Output Vital Signs (last 24 hours): Temp Pulse Resp BP Pulse Ox 97.6 F 99 H 20 133/85 97 04/10/18 07:40 04/10/18 08:54 04/10/18 07:40 04/10/18 07:40 04/10/18 07:40 Intake and Output: 04/10/18 04/10/18 06:59 18:59 Intake Total 240 600 Output Total 2 Balance 240 598 - Medications Medications: Current Medications Lactulose (Enulose) 20 gm PO BID [facility] Last Admin: 04/10/18 09:45 Dose: 20 gm Morphine Sulfate (Morphine) 1 mg IVP Q4 PRN PRN Reason: Pain, severe (8-10) Last Admin: 04/10/18 09:45 Dose: 1 mg Pantoprazole Sodium (Protonix Ec Tab) 40 mg PO DAILY [facility] Last Admin: 04/10/18 09:45 Dose: 40 mg Potassium Phos/Sodium Phos (Neutra-Phos) 1 pkt PO QID [facility] Stop: 04/10/18 22:01 Last Admin: 04/10/18 09:47 Dose: 1 pkt Thiamine HCl (Vitamin B1 Tab) 100 mg PO DAILY [facility] Last Admin: 04/10/18 09:45 Dose: 100 mg - Labs Labs: 04/10/18 07:58 04/10/18 07:58 PT 13.9 SECONDS (9.7-12.2) H 04/06/18 11:10 INR 1.3 04/06/18 11:10 - Constitutional Appears: Well, Non-toxic, No Acute Distress - Head Exam Head Exam: ATRAUMATIC, NORMAL INSPECTION - Eye Exam Eye Exam: EOMI, Normal appearance. absent: Conjunctival injection Pupil Exam: NORMAL ACCOMODATION, PERRL - ENT Exam ENT Exam: Mucous Membranes Moist, Normal Exam - Neck Exam Neck Exam: Full ROM, Normal Inspection (No enlarged LN). absent: Lymphadenopathy, Meningismus, Thyromegaly - Respiratory Exam Respiratory Exam: Chest Wall Tenderness, Decreased Breath Sounds, Prolonged Expiratory Phase, Rhonchi. absent: Accessory Muscle Use, Clear to Ausculation Bilateral, Rales, Wheezes, Respiratory Distress, NORMAL BREATHING PATTERN - Cardiovascular Exam Cardiovascular Exam: REGULAR RHYTHM, RRR, +S1, +S2. absent: Bradycardia, Tachycardia, Irregular Rhythm, JVD - GI/Abdominal Exam GI & Abdominal Exam: Soft, Normal Bowel Sounds - Back Exam Back Exam: absent: CVA tenderness (L), CVA tenderness (R) - Neurological Exam Neurological Exam: Alert, CN II-XII Intact, Normal Gait, Oriented x3. absent: Altered, Motor Sensory Deficit Assessment and Plan (1) Mass of right lung Assessment & Plan: Likely lung CA continue present treatment for now Awaiting tumor markers Status: Acute (2) Chest mass Status: Acute (3) Cirrhosis Status: Acute (4) Metastatic cancer Status: Acute
--- NOTE | 2018-04-10 13:12 | CP.PCM.PN ---
Subjective - Date & Time of Evaluation Date of Evaluation: 04/10/18 Time of Evaluation: 13:12 - Subjective Subjective: Progress note dictated #[id number] Objective - Vital Signs/Intake and Output Vital Signs (last 24 hours): Temp Pulse Resp BP Pulse Ox 97.6 F 99 H 20 133/85 97 04/10/18 07:40 04/10/18 08:54 04/10/18 07:40 04/10/18 07:40 04/10/18 07:40 Intake and Output: 04/10/18 04/10/18 06:59 18:59 Intake Total 240 600 Output Total 2 Balance 240 598 - Medications Medications: Current Medications Magnesium Sulfate/Dextrose (Magnesium Sulfate 1 Gm/100 Ml D5w) 1 gm in 100 mls @ 200 mls/hr IVPB Q30M [facility] Stop: 04/10/18 14:14 Lactulose (Enulose) 20 gm PO BID [facility] Last Admin: 04/10/18 09:45 Dose: 20 gm Morphine Sulfate (Morphine) 1 mg IVP Q4 PRN PRN Reason: Pain, severe (8-10) Last Admin: 04/10/18 09:45 Dose: 1 mg Pantoprazole Sodium (Protonix Ec Tab) 40 mg PO DAILY [facility] Last Admin: 04/10/18 09:45 Dose: 40 mg Potassium Phos/Sodium Phos (Neutra-Phos) 1 pkt PO QID [facility] Stop: 04/10/18 22:01 Last Admin: 04/10/18 09:47 Dose: 1 pkt Thiamine HCl (Vitamin B1 Tab) 100 mg PO DAILY [facility] Last Admin: 04/10/18 09:45 Dose: 100 mg - Labs Labs: 04/10/18 07:58 04/10/18 07:58 PT 13.9 SECONDS (9.7-12.2) H 04/06/18 11:10 INR 1.3 04/06/18 11:10
[2018-04-10] MEDS: Magnesium Sulfate 1 gm in D5W 1 GM/100 ML BAG IVPB SCH ×2 (14:19→14:51)
--- NOTE | 2018-04-10 14:34 | CP.PCM.PN ---
Subjective - Date & Time of Evaluation Date of Evaluation: 04/10/18 Time of Evaluation: 14:33 - Subjective Subjective: pt is seen and examined follow up consult is dictated #[id number] 1. hypontremia r/o siadh 2. liver failure, r/o metastatic liver disease 3. rt lung mass r/o malignency 4. b/l leg sweeling check serum uric acid restrict fluids to 1 lit/day agree with nacl tab will add Tolvaptan 30 mg po x 1 bmp in am Objective - Vital Signs/Intake and Output Vital Signs (last 24 hours): Temp Pulse Resp BP Pulse Ox 97.6 F 99 H 20 133/85 97 04/10/18 07:40 04/10/18 08:54 04/10/18 07:40 04/10/18 07:40 04/10/18 07:40 Intake and Output: 04/10/18 04/10/18 06:59 18:59 Intake Total 240 600 Output Total 2 Balance 240 598 - Medications Medications: Current Medications Lactulose (Enulose) 20 gm PO BID [facility] Last Admin: 04/10/18 09:45 Dose: 20 gm Morphine Sulfate (Morphine) 1 mg IVP Q4 PRN PRN Reason: Pain, severe (8-10) Last Admin: 04/10/18 09:45 Dose: 1 mg Pantoprazole Sodium (Protonix Ec Tab) 40 mg PO DAILY [facility] Last Admin: 04/10/18 09:45 Dose: 40 mg Potassium Phos/Sodium Phos (Neutra-Phos) 1 pkt PO QID [facility] Stop: 04/10/18 22:01 Last Admin: 04/10/18 09:47 Dose: 1 pkt Sodium Chloride (Sodium Chloride Tab) 1 gm PO TID [facility] Thiamine HCl (Vitamin B1 Tab) 100 mg PO DAILY [facility] Last Admin: 04/10/18 09:45 Dose: 100 mg Tolvaptan (Samsca) 30 mg PO ONCE ONE Stop: 04/10/18 14:33 - Labs Labs: 04/10/18 07:58 04/10/18 07:58 PT 13.9 SECONDS (9.7-12.2) H 04/06/18 11:10 INR 1.3 04/06/18 11:10
--- NOTE | 2018-04-10 17:49 | PN ---
DATE: 04/10/2018 SUBJECTIVE: The patient was seen and examined at bedside. The patient offers no new complaints. PHYSICAL EXAMINATION: GENERAL: On examination, an elderly female, lying in bed, in no acute distress. VITAL SIGNS: Blood pressure 133/85, pulse 109, respirations 20, and temperature 97.6 degrees Fahrenheit, and O2 saturations 97% on 2 L nasal cannula. HEENT: Pupils equal, round, and reacting to light and accommodation. Extraocular muscles are intact. No icterus, no pallor, no oral thrush, no pharyngeal congestion. NECK: Supple. No JVD. LUNGS: Bilateral vesicular breath sounds. No wheezing, no rhonchi. CVS: S1 and S2 present, regular. ABDOMEN: Soft, and nontender. Bowel sounds present. No guarding, no rigidity, no rebound tenderness noted. CENTRAL NERVOUS SYSTEM: Alert, awake, and oriented x3. No focal deficits noted. EXTREMITIES: 3+ pitting edema, palpable peripheral pulses. LABORATORY DATA: Labs from this morning; WBC 11.1, hemoglobin 12.9, hematocrit 37.9, platelets 363. Sodium 123, potassium 4.4, chloride 84, bicarbonate 28, BUN 12, creatinine 0.7, glucose 97, calcium 8.4, phosphorus 2.8, magnesium 1.3, total bilirubin 4.6, AST 319, ALT 248, alkaline phosphatase 690, total protein 6.5, and albumin 3.4. MEDICATIONS: Include lactulose 20 g p.o. b.i.d., magnesium sulfate 2 g IV every 2 hours, morphine 1 mg IV every 4 hours, Protonix 40 mg daily, Neutra-Phos 1 pack p.o. 4 times a day, sodium chloride tablets 1 g p.o. t.i.d., and thiamine 100 mg p.o. daily. 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 Recent lower extremity Dopplers negative for any deep venous thrombosis. Lumbar spine is negative. Abdomen and pelvis CT, awaiting for official pathology report. We will continue with current pain medications. We will give one dose of Lasix. I will repeat urinalysis and urine culture, supplement magnesium. We will supplement sodium chloride tablet. We will obtain renal followup. Long-term prognosis is guarded. Aislinn Hennessy MD
--- NOTE | 2018-04-10 18:18 | CP.PCM.PN ---
Subjective - Date & Time of Evaluation Date of Evaluation: 04/08/18 Time of Evaluation: 12:00 - Subjective Subjective: Has some back pain. Objective - Vital Signs/Intake and Output Vital Signs (last 24 hours): Temp Pulse Resp BP Pulse Ox 98.1 F 111 H 20 135/87 95 04/10/18 15:00 04/10/18 15:00 04/10/18 15:00 04/10/18 15:00 04/10/18 15:00 Intake and Output: 04/10/18 04/10/18 06:59 18:59 Intake Total 240 600 Output Total 2 Balance 240 598 - Medications Medications: Current Medications Lactulose (Enulose) 20 gm PO BID [facility] Last Admin: 04/10/18 09:45 Dose: 20 gm Morphine Sulfate (Morphine) 1 mg IVP Q4 PRN PRN Reason: Pain, severe (8-10) Last Admin: 04/10/18 09:45 Dose: 1 mg Pantoprazole Sodium (Protonix Ec Tab) 40 mg PO DAILY [facility] Last Admin: 04/10/18 09:45 Dose: 40 mg Potassium Phos/Sodium Phos (Neutra-Phos) 1 pkt PO QID [facility] Stop: 04/10/18 22:01 Last Admin: 04/10/18 14:50 Dose: 1 pkt Sodium Chloride (Sodium Chloride Tab) 1 gm PO TID [facility] Last Admin: 04/10/18 14:50 Dose: 1 gm Thiamine HCl (Vitamin B1 Tab) 100 mg PO DAILY [facility] Last Admin: 04/10/18 09:45 Dose: 100 mg - Labs Labs: 04/10/18 07:58 04/10/18 07:58 PT 13.9 SECONDS (9.7-12.2) H 04/06/18 11:10 INR 1.3 04/06/18 11:10 - Head Exam Head Exam: ATRAUMATIC - Eye Exam Eye Exam: Normal appearance - ENT Exam ENT Exam: Mucous Membranes Dry - Cardiovascular Exam Cardiovascular Exam: +S1, +S2 - GI/Abdominal Exam GI & Abdominal Exam: Normal Bowel Sounds Assessment and Plan (1) Metastatic cancer Assessment & Plan: prelim biopsy path concerning for small cell lung cancer awaiting official path report will need portacath if agreeable to chemotherapy no Lspine, brain mets by CT Status: Acute
--- NOTE | 2018-04-10 18:19 | CP.PCM.PN ---
Subjective - Date & Time of Evaluation Date of Evaluation: 04/09/18 Time of Evaluation: 17:00 - Subjective Subjective: No complaints. Objective - Vital Signs/Intake and Output Vital Signs (last 24 hours): Temp Pulse Resp BP Pulse Ox 98.1 F 111 H 20 135/87 95 04/10/18 15:00 04/10/18 15:00 04/10/18 15:00 04/10/18 15:00 04/10/18 15:00 Intake and Output: 04/10/18 04/10/18 06:59 18:59 Intake Total 240 600 Output Total 2 Balance 240 598 - Medications Medications: Current Medications Lactulose (Enulose) 20 gm PO BID [facility] Last Admin: 04/10/18 09:45 Dose: 20 gm Morphine Sulfate (Morphine) 1 mg IVP Q4 PRN PRN Reason: Pain, severe (8-10) Last Admin: 04/10/18 09:45 Dose: 1 mg Pantoprazole Sodium (Protonix Ec Tab) 40 mg PO DAILY [facility] Last Admin: 04/10/18 09:45 Dose: 40 mg Potassium Phos/Sodium Phos (Neutra-Phos) 1 pkt PO QID [facility] Stop: 04/10/18 22:01 Last Admin: 04/10/18 14:50 Dose: 1 pkt Sodium Chloride (Sodium Chloride Tab) 1 gm PO TID [facility] Last Admin: 04/10/18 14:50 Dose: 1 gm Thiamine HCl (Vitamin B1 Tab) 100 mg PO DAILY [facility] Last Admin: 04/10/18 09:45 Dose: 100 mg - Labs Labs: 04/10/18 07:58 04/10/18 07:58 PT 13.9 SECONDS (9.7-12.2) H 04/06/18 11:10 INR 1.3 04/06/18 11:10 - Head Exam Head Exam: ATRAUMATIC - Eye Exam Eye Exam: Normal appearance - ENT Exam ENT Exam: Mucous Membranes Dry - Respiratory Exam Respiratory Exam: NORMAL BREATHING PATTERN - Cardiovascular Exam Cardiovascular Exam: +S1, +S2 - GI/Abdominal Exam GI & Abdominal Exam: Normal Bowel Sounds Assessment and Plan (1) Metastatic cancer Assessment & Plan: concerning for small cell lung cancer awaiting final path report Status: Acute
--- NOTE | 2018-04-10 18:21 | CP.PCM.PN ---
Subjective - Date & Time of Evaluation Date of Evaluation: 04/10/18 Time of Evaluation: 16:00 - Subjective Subjective: No complaints. Spoke to the patients sister at length and discussed concern for malignancy and awaiting final pathology report. Objective - Vital Signs/Intake and Output Vital Signs (last 24 hours): Temp Pulse Resp BP Pulse Ox 98.1 F 111 H 20 135/87 95 04/10/18 15:00 04/10/18 15:00 04/10/18 15:00 04/10/18 15:00 04/10/18 15:00 Intake and Output: 04/10/18 04/10/18 06:59 18:59 Intake Total 240 600 Output Total 2 Balance 240 598 - Medications Medications: Current Medications Lactulose (Enulose) 20 gm PO BID [facility] Last Admin: 04/10/18 09:45 Dose: 20 gm Morphine Sulfate (Morphine) 1 mg IVP Q4 PRN PRN Reason: Pain, severe (8-10) Last Admin: 04/10/18 09:45 Dose: 1 mg Pantoprazole Sodium (Protonix Ec Tab) 40 mg PO DAILY [facility] Last Admin: 04/10/18 09:45 Dose: 40 mg Potassium Phos/Sodium Phos (Neutra-Phos) 1 pkt PO QID [facility] Stop: 04/10/18 22:01 Last Admin: 04/10/18 14:50 Dose: 1 pkt Sodium Chloride (Sodium Chloride Tab) 1 gm PO TID [facility] Last Admin: 04/10/18 14:50 Dose: 1 gm Thiamine HCl (Vitamin B1 Tab) 100 mg PO DAILY [facility] Last Admin: 04/10/18 09:45 Dose: 100 mg - Labs Labs: 04/10/18 07:58 04/10/18 07:58 PT 13.9 SECONDS (9.7-12.2) H 04/06/18 11:10 INR 1.3 04/06/18 11:10 - Head Exam Head Exam: ATRAUMATIC - Eye Exam Eye Exam: Normal appearance - ENT Exam ENT Exam: Mucous Membranes Dry - Respiratory Exam Respiratory Exam: NORMAL BREATHING PATTERN - Cardiovascular Exam Cardiovascular Exam: +S1, +S2 - GI/Abdominal Exam GI & Abdominal Exam: Normal Bowel Sounds Assessment and Plan (1) Metastatic cancer Assessment & Plan: concern for small cell lung cancer; awaiting final path report. portacath placement if confirmed malignancy and agreeable to chemotherapy. Status: Acute
--- NOTE | 2018-04-10 18:36 | PN ---
DATE: 04/10/2018 FOLLOWUP RENAL CONSULTATION LOCATION: The patient is located in room 57, bed A. REQUESTED BY: Aislinn Hennessy MD REASON FOR RENAL CONSULT: Follow up hyponatremia, SIADH. SUBJECTIVE: Mrs. Gil is about a 68-year-old elderly female with a past medical history significant for hypertension, hyperlipidemia, who was admitted with chief complaints of low back pain, abdominal pain, constipation for 3 weeks and the patient was also complaining of associated nausea and no vomiting. The patient was found to have an enlarged liver and also right lung mass, status post IR-guided lung mass biopsy, status post EGD and colonoscopy. The patient is awaiting for the biopsy report. The patient is not in acute distress. Denies any headache, or dizziness. Denies any chest pain or palpitation. The patient does complain of bilateral lower extremity swelling. PHYSICAL EXAMINATION: VITAL SIGNS: As follows: Blood pressure 133/85, pulse 109, respirations 20, temperature 97.6, saturation 97% on 2 liters nasal cannula. Height 5 feet 4 inches, weight is 135 pounds. GENERAL: Mrs. Gil is a 68-year-old elderly female, moderately built, moderately nourished, not in acute distress. HEENT: Pupils reactive to light and accommodation. Conjunctivae pink. Sclerae anicteric. Tongue is moist. NECK: Trachea is midline. LUNGS: Symmetric on both sides. Bilateral breath sounds present. Occasional basal crackles in the mid lung. CVS: S1, S2 audible. No murmur or gallop. ABDOMEN: Distended. Liver palpable 3 to 4 fingerbreadths below the right costal margin. Abdomen soft. No guarding. No rigidity. No abdominal bruit. NEWS VIDEOTAPE EDITOR: The patient is alert, awake, and oriented x3. Nonfocal neuro examination. Cranial nerves II through XII grossly intact. Sensory and motor system is within normal limits. EXTREMITIES: No cyanosis, no clubbing. The patient has 2+ edema in both lower extremities. CURRENT MEDICATIONS: Include as follows: Lactulose 20 g p.o. b.i.d., morphine 1 g IV push every 4 hours p.r.n., Neutra-Phos one packet p.o. 4 times a day, Protonix 40 mg p.o. daily, sodium chloride tablet 1 g p.o. t.i.d., thiamine 100 mg p.o. daily. LABORATORY DATA: Include as follows: As of 04/10/2018, WBC 11.1, hemoglobin 12.9, hematocrit is 37.9, platelets 363. Sodium 123, potassium 4.4, chloride 84, CO2 28, BUN 12, creatinine 0.9, glucose 97, calcium 9.4, phosphorus 2.8, magnesium 1.3, total bili 4.6, AST 319, ALT 248, alkaline phosphatase 690, total protein 6.5, albumin is 3.4. ASSESSMENT AND PLAN: In summary, Mrs. Gil is a 68-year-old elderly female with history of hypertension, cerebrovascular accident, hyperlipidemia, ex-smoker, was admitted with back pain and found to have hepatomegaly, abnormal liver function tests, and the right lung mass, status post Interventional Radiology-guided biopsy of the right lung mass, awaiting for the results with ____. 1. Hyponatremia, rule out syndrome of inappropriate antidiuretic hormone secretion. Serum sodium improved nicely with tolvaptan earlier this week and now serum sodium is again dropping and restrict fluids to 1 liter per day and I agree with the sodium chloride tablet 1 g p.o. t.i.d. We will give tolvaptan 30 mg p.o. x1 dose and repeat basic metabolic panel in a.m. We will also check serum uric acid level. We will follow with you. Thank you for allowing me to participate in your patient's care. Britney Hennessy MD
[2018-04-11 08:37] LABS: BLOOD UREA NITROGEN 17 mg/dL (7-17); CALCIUM 9.8 mg/dl (8.6-10.4); GFR NON-AFRICAN AMERICAN > 60
[2018-04-11] MEDS: Pantoprazole 40 mg EC Tab PO SCH (10:08)
--- NOTE | 2018-04-11 10:56 | CP.PCM.PN ---
Subjective - Date & Time of Evaluation Date of Evaluation: 04/11/18 Time of Evaluation: 10:55 - Subjective Subjective: pt is seen and examined, follow up consult is dictated #[id number] will give tolvaptan 30 mg po x 1 today, check bmp at 6pm Objective - Vital Signs/Intake and Output Vital Signs (last 24 hours): Temp Pulse Resp BP Pulse Ox 97.8 F 114 H 20 121/63 96 04/10/18 23:27 04/11/18 03:28 04/10/18 23:27 04/10/18 23:27 04/10/18 23:27 - Medications Medications: Current Medications Lactulose (Enulose) 20 gm PO BID [facility] Last Admin: 04/10/18 19:14 Dose: 20 gm Morphine Sulfate (Morphine) 1 mg IVP Q4 PRN PRN Reason: Pain, severe (8-10) Last Admin: 04/11/18 00:19 Dose: 1 mg Pantoprazole Sodium (Protonix Ec Tab) 40 mg PO DAILY [facility] Last Admin: 04/11/18 10:08 Dose: 40 mg Sodium Chloride (Sodium Chloride Tab) 1 gm PO TID [facility] Last Admin: 04/10/18 19:15 Dose: 1 gm Thiamine HCl (Vitamin B1 Tab) 100 mg PO DAILY [facility] Last Admin: 04/11/18 10:08 Dose: 100 mg Tolvaptan (Samsca) 30 mg PO ONCE ONE Stop: 04/11/18 10:54 - Labs Labs: 04/10/18 07:58 04/11/18 08:01 PT 13.9 SECONDS (9.7-12.2) H 04/06/18 11:10 INR 1.3 04/06/18 11:10
--- NOTE | 2018-04-11 11:02 | CP.PCM.PN ---
Subjective - Date & Time of Evaluation Date of Evaluation: 04/11/18 Time of Evaluation: 11:02 - Subjective Subjective: Progress note dictated #[id number] Objective - Vital Signs/Intake and Output Vital Signs (last 24 hours): Temp Pulse Resp BP Pulse Ox 97.5 F L 117 H 20 117/73 95 04/11/18 08:00 04/11/18 08:00 04/11/18 08:00 04/11/18 08:00 04/11/18 08:00 - Medications Medications: Current Medications Lactulose (Enulose) 20 gm PO BID [facility] Last Admin: 04/10/18 19:14 Dose: 20 gm Morphine Sulfate (Morphine) 1 mg IVP Q4 PRN PRN Reason: Pain, severe (8-10) Last Admin: 04/11/18 00:19 Dose: 1 mg Pantoprazole Sodium (Protonix Ec Tab) 40 mg PO DAILY [facility] Last Admin: 04/11/18 10:08 Dose: 40 mg Sodium Chloride (Sodium Chloride Tab) 1 gm PO TID [facility] Last Admin: 04/10/18 19:15 Dose: 1 gm Thiamine HCl (Vitamin B1 Tab) 100 mg PO DAILY [facility] Last Admin: 04/11/18 10:08 Dose: 100 mg Tolvaptan (Samsca) 30 mg PO ONCE ONE Stop: 04/11/18 10:54 - Labs Labs: 04/10/18 07:58 04/11/18 08:01 PT 13.9 SECONDS (9.7-12.2) H 04/06/18 11:10 INR 1.3 04/06/18 11:10
[2018-04-11] MEDS ORDERED: Tolvaptan 15 MG TAB PO ONE (11:30)
[2018-04-11] MEDS ORDERED: Iohexol 240 (50 ml) PO ONE (13:00)
[2018-04-11 14:56] LABS: SQUAMOUS EPITHIAL < 1 /hpf (0-5); URINE BILIRUBIN NEGATIVE (NEGATIVE); URINE BLOOD NEGATIVE (NEGATIVE); URINE CLARITY Clear (Clear); URINE COLOR Yellow (YELLOW); URINE GLUCOSE (UA) NORMAL (Normal); URINE HYALINE CAST 0-2 /lpf (0-2); URINE LEUKOCYTE ESTERASE NEG Leu/uL (Negative); URINE PROTEIN NEGATIVE (NEGATIVE)
[2018-04-11] MEDS ORDERED: Iohexol 300 100 ML IJ ONE (18:13)
--- NOTE | 2018-04-11 22:21 | PN ---
DATE: 04/11/2018 SUBJECTIVE: The patient was seen and examined at bedside. The patient has been complaining of chronic low back pain. Denies any new complaints. Lower extremity swelling remains the same. Tolerating p.o. feeds. PHYSICAL EXAMINATION: GENERAL: On examination, an elderly female, lying in bed, in no acute distress. VITAL SIGNS: Blood pressure 117/73, pulse 117, respirations 20, temperature 97.5 degrees Fahrenheit, O2 saturations 95% on room air. HEENT: Pupils equal, round, and reacting to light and accommodation. Extraocular muscles intact. No icterus. No pallor. No oral thrush. No oropharyngeal congestion. NECK: Supple. No JVD. LUNGS: Bilateral vesicular breath sounds. No wheezing, no rhonchi. CVS: S1 and S2 present, regular. ABDOMEN: Soft. Bowel sounds present. No guarding, no rigidity, no rebound tenderness noted. CENTRAL NERVOUS SYSTEM: Alert, awake, and oriented x3. No focal deficits noted. EXTREMITIES: Bilateral lower extremity pitting edema noted. MEDICATIONS: Include: Lasix 40 mg IV daily, lactulose 20 g p.o. b.i.d., morphine 1 mg IV push every 4 hours p.r.n., Protonix 40 mg daily, sodium chloride tablets 1 g p.o. t.i.d., and thiamine 100 mg p.o. daily. LABORATORY DATA: Labs done from today: Sodium 123, potassium 5, chloride 83, bicarbonate 29, BUN 17, creatinine 0.7, glucose 103, calcium 9.8. Uric acid 8.7. UA: Specific gravity 1.005, pH 6, protein negative. ASSESSMENT AND PLAN: An elderly female with past medical history of hypertension, hyperlipidemia, chronic low back pain, admitted for right lung mass, cirrhosis of liver, possible liver metastasis, hyponatremia, lower extremity edema, questionable etiology, rule out lymphatic obstruction. I discussed with Pathology. 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 We will follow up with Oncology regarding the treatment plan. I discussed with the patient's sister at bedside at length. If the patient agrees, we will request port-a-cath placement prior to discharge. Her sodium remains low, receiving tolvaptan. We will obtain CT of the abdomen and pelvis with intravenous and p.o. contrast and lower extremity Doppler to rule out any deep vein thrombosis. There is no hypoalbuminemia or proteinuria. The patient may need subacute rehab placement. We will request Information Technology Auditor for rehab placement. Long-term prognosis is guarded. Aislinn Hennessy MD
--- NOTE | 2018-04-12 03:22 | PN ---
DATE: 04/11/2018 FOLLOWUP RENAL CONSULTATION LOCATION: The patient is located in room 559, bed A. REQUESTED BY: Aislinn Hennessy MD HISTORY OF PRESENT ILLNESS: Mrs. 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 The patient is not in acute distress. Denies any headache, dizziness. Denies any chest pain or palpitation. Denies any fever or cough. The patient has complaints of swelling of the legs. PHYSICAL EXAMINATION: VITAL SIGNS: As follows: Blood pressure this morning 117/73, pulse 117, respirations 20, temperature 97.5, height 5 feet 4 inches, and weight is 135 pounds. GENERAL: Mrs. Gil is a 68-year-old elderly female, moderately built, moderately nourished, not in acute distress. HEENT: Pupils normal and reactive to light and accommodation. Conjunctivae pink. Sclerae anicteric. Tongue is moist. Trachea is midline. LUNGS: Symmetric on both sides. Bilateral breath sounds present. No crackles. CVS: [place] at the fifth intercostal space, midclavicular area. S1, S2 audible. No murmur or gallop. ABDOMEN: Soft, distended. Hepatomegaly present. Liver is palpable across the whole epigastric region and also left upper quadrant also, and also felt with four fingerbreadth below the right costal margin. No abdominal bruit. GEAR CHANGER: The patient is alert, awake, oriented x3. Nonfocal neuro examination. Cranial nerves II through XII grossly intact. Sensory and motor system is within normal limits. EXTREMITIES: No cyanosis, no clubbing. The patient has 2+ edema in both lower extremities. CURRENT MEDICATIONS: Her current medications include as follows: Lactulose 20 g p.o. b.i.d., Lasix 40 mg IV daily, morphine sulfate 1 mg IV every 4 hours p.r.n., Protonix 40 mg p.o. daily, sodium chloride 1 g p.o. t.i.d., thiamine 100 mg p.o. daily. LABORATORY DATA: Include as follows: As of 04/11/2018, sodium 123, potassium 5, chloride 83, CO2 of 29, BUN 17, creatinine 0.7, glucose 103, calcium 9.8. Urinalysis, yellow clear, pH is 6, specific gravity 1.005, protein negative, glucose normal, and ketones negative, blood negative, bilirubin negative, urobilinogen 2, leukocyte esterase negative, wbc 2, rbc less than 1. IMPRESSION: In summary, Mrs. Gil is a 68-year-old elderly female with a history of right lung mass, hepatomegaly, status post right lung biopsy mass consistent with malignancy with neuroendocrine features with necrotic tissue with low serum sodium. 1. Hyponatremia, rule out syndrome of inappropriate antidiuretic hormone secretion secondary to malignancy. 2. Rule out metastatic lung cancer with possible metastasis to the liver. 3. Hypertension. Follow with ground instructor advanced, Dr. Hernandez, and may need liver biopsy also, and we will give tolvaptan 30 mg p.o. x1 dose and repeat BMP every 12 hours. Overall prognosis is very poor. Thank you for allowing me to participate in your patient's care. Repeat BMP in a.m. again. Britney Hennessy MD
[2018-04-12 08:31] LABS: BLOOD UREA NITROGEN 19 mg/dL (7-17); CALCIUM 9.8 mg/dl (8.6-10.4); GFR NON-AFRICAN AMERICAN > 60
[2018-04-12] MEDS: Pantoprazole 40 mg EC Tab PO SCH (09:01)
--- NOTE | 2018-04-12 10:04 | CP.PCM.PN ---
Subjective - Date & Time of Evaluation Date of Evaluation: 04/12/18 Time of Evaluation: 10:04 - Subjective Subjective: pt is seen and examined, follow up consult is dictated #[id number] Objective - Vital Signs/Intake and Output Vital Signs (last 24 hours): Temp Pulse Resp BP Pulse Ox 97.4 F L 118 H 20 100/50 L 95 04/11/18 23:53 04/12/18 07:36 04/11/18 23:53 04/12/18 09:09 04/11/18 23:53 Intake and Output: 04/12/18 04/12/18 06:59 18:59 Intake Total 360 Output Total 500 Balance -140 - Medications Medications: Current Medications Furosemide (Lasix) 40 mg IVP DAILY [facility] Last Admin: 04/12/18 09:09 Dose: Not Given Lactulose (Enulose) 20 gm PO BID [facility] Last Admin: 04/12/18 09:01 Dose: 20 gm Morphine Sulfate (Morphine) 1 mg IVP Q4 PRN PRN Reason: Pain, severe (8-10) Last Admin: 04/12/18 09:01 Dose: 1 mg Pantoprazole Sodium (Protonix Ec Tab) 40 mg PO DAILY [facility] Last Admin: 04/12/18 09:01 Dose: 40 mg Sodium Chloride (Sodium Chloride Tab) 1 gm PO TID [facility] Last Admin: 04/12/18 09:12 Dose: 1 gm Thiamine HCl (Vitamin B1 Tab) 100 mg PO DAILY [facility] Last Admin: 04/12/18 09:01 Dose: 100 mg - Labs Labs: 04/10/18 07:58 04/12/18 08:09 PT 13.9 SECONDS (9.7-12.2) H 04/06/18 11:10 INR 1.3 04/06/18 11:10
--- NOTE | 2018-04-12 10:04 | CP.PCM.PN ---
Subjective - Date & Time of Evaluation Date of Evaluation: 04/12/18 Time of Evaluation: 10:04 - Subjective Subjective: Progress note dictated #[id number] Objective - Vital Signs/Intake and Output Vital Signs (last 24 hours): Temp Pulse Resp BP Pulse Ox 97.4 F L 118 H 20 100/50 L 95 04/11/18 23:53 04/12/18 07:36 04/11/18 23:53 04/12/18 09:09 04/11/18 23:53 Intake and Output: 04/12/18 04/12/18 06:59 18:59 Intake Total 360 Output Total 500 Balance -140 - Medications Medications: Current Medications Furosemide (Lasix) 40 mg IVP DAILY [facility] Last Admin: 04/12/18 09:09 Dose: Not Given Lactulose (Enulose) 20 gm PO BID [facility] Last Admin: 04/12/18 09:01 Dose: 20 gm Morphine Sulfate (Morphine) 1 mg IVP Q4 PRN PRN Reason: Pain, severe (8-10) Last Admin: 04/12/18 09:01 Dose: 1 mg Pantoprazole Sodium (Protonix Ec Tab) 40 mg PO DAILY [facility] Last Admin: 04/12/18 09:01 Dose: 40 mg Sodium Chloride (Sodium Chloride Tab) 1 gm PO TID [facility] Last Admin: 04/12/18 09:12 Dose: 1 gm Thiamine HCl (Vitamin B1 Tab) 100 mg PO DAILY [facility] Last Admin: 04/12/18 09:01 Dose: 100 mg - Labs Labs: 04/10/18 07:58 04/12/18 08:09 PT 13.9 SECONDS (9.7-12.2) H 04/06/18 11:10 INR 1.3 04/06/18 11:10
--- NOTE | 2018-04-12 10:30 | CT ---
Date of service: 04/11/2018 PROCEDURE: CT Abdomen and Pelvis with contrast HISTORY: LE swelling, r/o lymphatic obstruction COMPARISON: None. TECHNIQUE: Contrast dose: 100 ml Omnipaque 300 Radiation dose: Total exam DLP = 723.70 mGy-cm. This CT exam was performed using one or more of the following dose reduction techniques: Automated exposure control, adjustment of the mA and/or kV according to patient size, and/or use of iterative reconstruction technique. FINDINGS: LOWER THORAX: Small incompletely visualized anterior right pneumothorax Stable left hilar disease LIVER: Stable hepatomegaly and widely disseminated hepatic metastatic disease. Impression upon portal venous system without evidence of portal vein thrombosis. GALLBLADDER AND BILE DUCTS: Unremarkable. PANCREAS: Unremarkable. No gross lesion or ductal dilatation. SPLEEN: Unremarkable. ADRENALS: Unremarkable. No mass. KIDNEYS AND URETERS: Unremarkable. No hydronephrosis. No solid mass. VASCULATURE: Unremarkable. No aortic aneurysm. BOWEL: Unremarkable. No obstruction. No gross mural thickening. APPENDIX: Normal appendix. PERITONEUM: Unremarkable. No free fluid. No free air. LYMPH NODES: Unremarkable. No enlarged lymph nodes. BLADDER: Unremarkable. REPRODUCTIVE: Unremarkable. BONES: No acute fracture. OTHER FINDINGS: Worsening subcutaneous edema, anasarca. This particularly evident in the pelvis and visualized lower extremities. There is no evidence of lymphatic blockade or venous occlusive disease. IMPRESSION: Small pneumothorax right lung. Stable tumor burden in the chest and abdomen. Increasing edema/anasarca a without CT evidence of lymphatic occlusion, of venous thrombosis or other pathologic process. Concordant results (preliminary interpretation) provided by [employer]. Procedure Completed: 19:07 Preliminary ([facility]) Report: Dictated and Authenticated: 20:01. April 11, 2018. Final Interpretation: 10:23. April 12 2018.
--- NOTE | 2018-04-12 11:01 | RAD ---
Date of service: 04/11/2018 HISTORY: f/u ct scan COMPARISON: 04/05/2018. Single-view chest. April 11, 2018. CT abdomen and pelvis. FINDINGS: LUNGS: No active pulmonary disease. PLEURA: Known small anterior pneumothorax on the right apparent on recent CT is not visible on the current study. There is no evidence of tension pneumothorax. Dominant pulmonary nodule an additional smaller pulmonary nodules unchanged. CARDIOVASCULAR: Normal. OSSEOUS STRUCTURES: No significant abnormalities. VISUALIZED UPPER ABDOMEN: Normal. OTHER FINDINGS: None. IMPRESSION: No visible pneumothorax. Patient has a small incompletely visualized pneumothorax on a recent CT of the abdomen and pelvis.
--- NOTE | 2018-04-12 16:50 | CP.PCM.PN ---
Subjective - Date & Time of Evaluation Date of Evaluation: 04/12/18 Time of Evaluation: 11:45 - Subjective Subjective: PATIENT SEEN AND EXAMINED No pneumothorax seen on chest x-ray No shortness of breath Lung biopsy positive for poorly differentiated malignancy Objective - Vital Signs/Intake and Output Vital Signs (last 24 hours): Temp Pulse Resp BP Pulse Ox 97.4 F L 118 H 20 100/50 L 95 04/11/18 23:53 04/12/18 07:36 04/11/18 23:53 04/12/18 09:09 04/11/18 23:53 Intake and Output: 04/12/18 04/12/18 06:59 18:59 Intake Total 360 300 Output Total 500 Balance -140 300 - Medications Medications: Current Medications Lactulose (Enulose) 20 gm PO BID [facility] Last Admin: 04/12/18 09:01 Dose: 20 gm Morphine Sulfate (Morphine) 1 mg IVP Q4 PRN PRN Reason: Pain, severe (8-10) Last Admin: 04/12/18 09:01 Dose: 1 mg Pantoprazole Sodium (Protonix Ec Tab) 40 mg PO DAILY [facility] Last Admin: 04/12/18 09:01 Dose: 40 mg Thiamine HCl (Vitamin B1 Tab) 100 mg PO DAILY [facility] Last Admin: 04/12/18 09:01 Dose: 100 mg - Labs Labs: 04/10/18 07:58 04/12/18 08:09 PT 13.9 SECONDS (9.7-12.2) H 04/06/18 11:10 INR 1.3 04/06/18 11:10 Assessment and Plan (1) Mass of right lung Status: Acute
--- NOTE | 2018-04-12 17:00 | CP.PCM.CON ---
History of Present Illness - History of Present Illness History of Present Illness: General Surgery Consult note for Dr. Zavala 68 year old female with PMHx of HTN, HLN, small cell cancer with liver mets was seen for portacath placement evaluation for chemotherapy. Patient currently has no complaints and does not feel pain anywhere in her body. She states that she understands why she is getting the procedure and what it entails. Patient currently denies chest pain, shortness of breath, abdominal pain, fever, chills, fatigue, nausea, vomiting and diarrhea. PMHx- HTN, HLD, small cell cancer with liver mets, HLD, chronic back pain PSHx: none allergies- penicillins social- ex smoker, extensive history, several years meds- see chart Review of Systems - Hematologic/Lymphatic Additional comments: as noted in HPI Past Patient History - Past Medical History & Family History Past Medical History?: Yes - Past Social History Smoking Status: Former Smoker - CARDIAC Hx Hypercholesterolemia: Yes Hx Hypertension: Yes - PULMONARY Hx Respiratory Disorders: No - NEUROLOGICAL Hx Neurological Disorder: Yes HX Cerebrovascular Accident: Yes - HEENT Hx HEENT Problems: No - RENAL Hx Chronic Kidney Disease: No - ENDOCRINE/METABOLIC Hx Endocrine Disorders: No - HEMATOLOGICAL/ONCOLOGICAL Hx Blood Disorders: No - INTEGUMENTARY Hx Dermatological Problems: No - MUSCULOSKELETAL/RHEUMATOLOGICAL Hx Musculoskeletal Disorders: Yes Hx Back Pain: Yes Hx Falls: Yes - GASTROINTESTINAL Hx Gastrointestinal Disorders: Yes Hx Constipation: Yes - GENITOURINARY/GYNECOLOGICAL Hx Genitourinary Disorders: No - PSYCHIATRIC Hx Substance Use: No - SURGICAL HISTORY Hx Surgeries: No - ANESTHESIA Hx Anesthesia: No Meds Allergies/Adverse Reactions: Allergies Allergy/AdvReac Type Severity Reaction Status Date / Time Penicillins Allergy Verified 04/01/18 14:38 - Medications Medications: Current Medications Lactulose (Enulose) 20 gm PO BID [facility] Last Admin: 04/12/18 09:01 Dose: 20 gm Morphine Sulfate (Morphine) 1 mg IVP Q4 PRN PRN Reason: Pain, severe (8-10) Last Admin: 04/12/18 09:01 Dose: 1 mg Pantoprazole Sodium (Protonix Ec Tab) 40 mg PO DAILY [facility] Last Admin: 04/12/18 09:01 Dose: 40 mg Thiamine HCl (Vitamin B1 Tab) 100 mg PO DAILY [facility] Last Admin: 04/12/18 09:01 Dose: 100 mg Physical Exam - Constitutional Appears: No Acute Distress - Head Exam Head Exam: ATRAUMATIC, NORMOCEPHALIC - Eye Exam Eye Exam: EOMI - ENT Exam ENT Exam: Mucous Membranes Moist - Neck Exam Neck exam: Positive for: Full Rom - Respiratory Exam Respiratory Exam: NORMAL BREATHING PATTERN - Cardiovascular Exam Cardiovascular Exam: +S1, +S2 - GI/Abdominal Exam GI & Abdominal Exam: Soft. absent: Tenderness - Extremities Exam Extremities exam: Positive for: normal inspection Results - Vital Signs Recent Vital Signs: Last Vital Signs Temp 97.4 F L 04/11/18 23:53 Pulse 118 H 04/12/18 07:36 Resp 20 04/11/18 23:53 BP 100/50 L 04/12/18 09:09 Pulse Ox 95 04/11/18 23:53 - Labs Result Diagrams: 04/10/18 07:58 04/12/18 08:09 Labs: Laboratory Results - last 24 hr 04/12/18 04/12/18 08:09 08:09 Sodium 125 L Potassium 4.9 Chloride 82 L Carbon Dioxide 31 H Anion Gap 17 BUN 19 H Creatinine 0.8 Est GFR ( Amer) > 60 Est GFR (Non-Af Amer) > 60 Random Glucose 88 Calcium 9.8 Ammonia 35 H Assessment & Plan - Assessment and Plan (Free Text) Assessment: 68 year old female recently diagnosed with small cell lung cancer with liver mets presents of portacath placement for chemotherapy, 04/13 Plan: - NPO at midnight - will obtain consent case discussed with Dr. Zavala
--- NOTE | 2018-04-12 21:40 | CON ---
DATE: 04/12/2018 LOCATION: Room 559, bed A. REQUESTED BY: Aislinn Hennessy MD. REASON FOR FOLLOWUP: Hyponatremia and lung cancer. HISTORY OF PRESENT ILLNESS: Mrs. Gil is a 68 years old elderly female with a past medical history significant for hypertension, hyperlipidemia, CVA, smoker who was admitted with lower back pain and the patient was found to have hepatomegaly and also right lung mass status post biopsy of the right lung mass consistent with malignancy and also questionable liver mets. The patient is being treated for hyponatremia. The patient denies any headache, dizziness. Denies any chest pain, palpitation. Denies any fever or cough. The patient has complaints of mild abdominal pain. Also complaints of bilateral lower extremity swelling. PHYSICAL EXAMINATION: VITAL SIGNS: Blood pressure 100/50, pulse 118, respirations 20, temperature 97.4, saturation 95% and height 5 feet 4 inches and weight is 135 pounds. GENERAL: Mrs. Gil is a 68 years old elderly female, moderately build, moderately nourished, not in distress. HEENT: Pupils normal, react to light and accommodation. Conjunctivae pink. Sclerae anicteric. Tongue is moist. Trachea is midline. LUNGS: Symmetric on both sides. Bilateral breath sounds present. CVS: [place] at the fifth intercostal space, midclavicular line. S1 and S2 audible. Slightly tachy. ABDOMEN: Distended and mild tenderness in the right upper quadrant in the epigastric region. Liver is palpable and nodular, hard in consistency. Liver is palpable four fingerbreadths below the right costal margin and also epigastric and left upper quadrant. No abdominal bruit. DATA COLLECTION ASSOCIATE: The patient is alert, awake, oriented x3. Nonfocal neuro examination. Cranial nerves II through XII grossly intact. Sensory and motor system is within normal limits. EXTREMITIES: No cyanosis, no clubbing. The patient has 2+ edema in both lower extremities. CURRENT MEDICATIONS: Lactulose 20 gm p.o. b.i.d., Morphine 1 mg IV every 4 hours, Protonix 40 mg p.o. daily, thiamine 100 mg p.o. daily. LABORATORY DATA: As of 04/10/2018; WBC 11.1, hemoglobin 12.9, hematocrit is 37.9 and platelets 363. As of 04/12/2018; sodium 125, potassium 4.9, chloride 82, CO2 31, BUN 19, creatinine 0.8, glucose 88, calcium 9.8, and ammonia 35. Pathology report as of 04/05/2018 reported as of 04/11/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 Chest x-ray report this morning from last night is pending and CT of the abdomen report as of 04/11/2018 at 11:45 a.m.; impression, stable hepatomegaly and widely disseminated hepatic metastatic disease, upon portal venous system without evidence of portal vein thrombosis, worsening subcutaneous edema, anasarca is particularly evident in the pelvis and visualized lower extremities. There is no evidence of lymphatic blockage or venous occlusive diseases, small pneumothorax right lung, stable marked tumor burden in the chest and abdomen. Duplex scan of the lower extremities pending and x-ray report is pending from 04/11/2018. ASSESSMENT: In summary, Mr. Gil is a 68 years old elderly female with history of hypertension, hyperlipidemia, cerebrovascular accident, smoker with right lung mass and also hepatomegaly with possible diffuse metastatic liver disease and status post CT-guided right lung mass biopsy consistent with malignant neoplasm with extension of the necrosis and neuroendocrine features and a low serum sodium. 1. Hyponatremia. Most likely secondary to syndrome of inappropriate antidiuretic hormone (secretion), cannot rule out prerenal picture. 2. Metastatic lung disease. 3. Prerenal azotemia. PLAN: We will hold sodium chloride table. We will hold Lasix and consider normal saline at 70 mL per hour for 24 hours. Repeat BMP in a.m. Follow up with Hematology. Follow up with Pulmonary. Discuss with Hematology whether the patient need any liver biopsy or reason of tissue diagnosis to treat the patient. We will follow with you. Thank you for allowing me to participate in your patient's care. Britney Hennessy MD
--- NOTE | 2018-04-12 23:41 | PN ---
DATE: 04/12/2018 SUBJECTIVE: The patient was seen and examined at bedside. The patient offers no new complaints. PHYSICAL EXAMINATION: GENERAL: Elderly female, lying in bed, in no acute distress. VITAL SIGNS: Blood pressure 126/84, pulse 117, respirations 20, temperature 97.7 degrees Fahrenheit, O2 saturations 94% on room air. HEENT: Pupils are equal, round, and reacting to light and accommodation. Extraocular muscles intact. No icterus. No pallor. No oral thrush. Dry mucous membranes. NECK: Supple. No JVD. LUNGS: Bilateral vesicular breath sounds. No wheezing. No rhonchi. CARDIOVASCULAR SYSTEM: S1 and S2 present, regular. ABDOMEN: Soft, nontender. Bowel sounds present. No guarding. No rigidity. No rebound tenderness noted. CENTRAL NERVOUS SYSTEM: Alert, awake, and oriented x3. No focal deficits noted. EXTREMITIES: Severe lower extremity edema present. Palpable peripheral pulses. MEDICATIONS: Include lactulose 20 g p.o. b.i.d., morphine IV every 4 hours p.r.n., Protonix 40 mg daily, and thiamine 100 mg daily. LABORATORY DATA: Labs done from today: Sodium 125, potassium 4.9, chloride 82, bicarbonate 31, BUN 19, creatinine 0.8, glucose 88, calcium 9.8. Ammonia 35. Chest x-ray, no visible pneumothorax. The patient has a small incompletely visualized pneumothorax on a recent CT of the abdomen and pelvis. CT of the abdomen and pelvis, small pneumothorax in right lung, stable tumor burden in the chest and the abdomen, increasing edema and anasarca without CT evidence of lymphatic occlusion of venous thrombosis or other pathologic process. ASSESSMENT AND PLAN: An elderly female with history of hypertension, hyperlipidemia, chronic low back pain. Admitted for right lung mass, liver metastasis, cirrhosis of liver, lower extremity edema, hyponatremia. Lung biopsy consistent with poorly differentiated carcinoma, possible small cell lung cancer. Discussed with the patient and explained the diagnosis. The patient wanted to talk to her sister. I called the patient's sister, Gina, and left a message to call back, waiting for her to call me back to discuss the patient's prognosis and treatment plan. I spoke to Dr. Hernandez. As per Dr. Hernandez, her sister wants to transfer the patient to [facility] where she can be closer. She would like to wait until tomorrow to give consent for chemotherapy for the patient. Surgical consult requested for possible Port-A-Cath placement. Continue the current pain medication. Repeat labs in the morning. Overall prognosis is guarded. We will follow up with sister regarding the treatment plan. Aislinn Hennessy MD
[2018-04-13 07:19] LABS: HEMOGLOBIN 13.2 g/dL (11.0-16.0)
[2018-04-13 07:27] LABS: INR 1.2; PROTHROMBIN TIME 13.3 SECONDS (9.7-12.2)
[2018-04-13 07:31] LABS: MEAN CELL VOLUME 86.3 fL (81.0-99.0); MEAN CORPUSCULAR HEMOGLOBIN 29.5 pg (27.0-31.0); MEAN CORPUSCULAR HGB CONC 34.2 g/dL (33.0-37.0); MEAN PLATELET VOLUME 9.4 fL (7.2-11.7); PLATELET COUNT 383 K/uL (130-400); RBC 4.47 Mil/uL (3.80-5.20); RED CELL DISTRIBUTION WIDTH 15.3 % (11.5-14.5); WHITE BLOOD COUNT 12.9 K/uL (4.8-10.8)
[2018-04-13 07:53] LABS: BLOOD UREA NITROGEN 20 mg/dL (7-17); CALCIUM 9.5 mg/dl (8.6-10.4); GFR NON-AFRICAN AMERICAN > 60
--- NOTE | 2018-04-13 09:57 | CP.PCM.PN ---
Subjective - Date & Time of Evaluation Date of Evaluation: 04/13/18 Time of Evaluation: 09:57 - Subjective Subjective: Progress note dictated # [id number] Objective - Vital Signs/Intake and Output Vital Signs (last 24 hours): Temp Pulse Resp BP Pulse Ox 97.7 F 108 H 20 138/85 96 04/13/18 08:31 04/13/18 08:31 04/13/18 08:31 04/13/18 08:31 04/13/18 08:31 Intake and Output: 04/13/18 04/13/18 06:59 18:59 Intake Total 0 Output Total 0 Balance 0 - Medications Medications: Current Medications Lactulose (Enulose) 20 gm PO BID [facility] Last Admin: 04/12/18 17:28 Dose: Not Given Morphine Sulfate (Morphine) 1 mg IVP Q4 PRN PRN Reason: Pain, severe (8-10) Last Admin: 04/13/18 06:37 Dose: 1 mg Pantoprazole Sodium (Protonix Ec Tab) 40 mg PO DAILY [facility] Last Admin: 04/12/18 09:01 Dose: 40 mg Thiamine HCl (Vitamin B1 Tab) 100 mg PO DAILY [facility] Last Admin: 04/12/18 09:01 Dose: 100 mg - Labs Labs: 04/13/18 06:57 04/13/18 06:57 PT 13.3 SECONDS (9.7-12.2) H 04/13/18 06:57 INR 1.2 04/13/18 06:57 APTT 24 SECONDS (21-34) 04/13/18 06:57
[2018-04-13] MEDS: Pantoprazole 40 mg EC Tab PO SCH (10:02)
[2018-04-13] MEDS ORDERED: HEPARIN-NS 5,000 UNITS/500 ML 5,000 UNIT/500 ML BAG IV ONE (10:48)
[2018-04-13] MEDS ORDERED: Vancomycin 1 gm/D5W 200 ml 1 GM/200 ML BAG IVPB ONE (10:48)
[2018-04-13] MEDS ORDERED: Lidocaine Hydrochloride 10 ML INJ ONE (10:49)
[2018-04-13 11:01] LABS: LYMPH # 0.4 K/uL (1.0-4.3)
[2018-04-13 11:02] LABS: LYMPHOCYTE 3 % (20-40); MONO # 0.5 K/uL (0.0-0.8); MONOCYTE 5 % (0-10); NEUTROPHIL 92 % (50-75); TOTAL CELLS COUNTED 100
[2018-04-13 11:03] LABS: ANISOCYTOSIS SLIGHT; PLATELET ESTIMATE NORMAL (NORMAL)
[2018-04-13 11:04] LABS: POLYCHROMIC SLIGHT; TARGET CELLS SLIGHT
[2018-04-13] MEDS ORDERED: Midazolam 2 MG/2 ML VIAL ONE (11:37)
[2018-04-13] MEDS ORDERED: Propofol 10 mg/ml Inj (20 ML) ONE (11:42)
--- NOTE | 2018-04-13 12:28 | PCM.SURG1 ---
Surgeon's Initial Post Op Note - Surgeon's Notes Surgeon: ronald Ground Crewman: o Type of Anesthesia: IV Sedation Anesthesia Administered By: belen Pre-Operative Diagnosis: avenia Operative Findings: powerport placed via right jugular Post-Operative Diagnosis: same Operation Performed: portacath right jugular with us guidance Specimen/Specimens Removed: 0 Estimated Blood Loss: EBL {In ML}: 5 Blood Products Given: N/A Drains Used: No Drains Post-Op Condition: Good Date of Surgery/Procedure: 04/13/18 Time of Surgery/Procedure: 12:28
--- NOTE | 2018-04-13 13:43 | RAD ---
Date of service: 04/13/2018 HISTORY: port placement COMPARISON: Portable chest 04/11/2018. FINDINGS: LUNGS: Interval right MediPort deployment identified terminating at the distal superior vena cava. No pneumothorax bilaterally. Multiple right-sided pulmonary mass is reiterated with the left chest clear. PLEURA: No significant pleural effusion identified, no pneumothorax apparent. CARDIOVASCULAR: Normal. OSSEOUS STRUCTURES: No significant abnormalities. VISUALIZED UPPER ABDOMEN: Normal. OTHER FINDINGS: None. IMPRESSION: Interval right MediPort deployment with exam otherwise stable in the interval including 2 right-sided pulmonary masses.
[2018-04-13] MEDS ORDERED: Sodium Chloride 0.9% 500 ML IV ONE ×2 (17:54→19:38)
--- NOTE | 2018-04-13 18:37 | CP.PCM.PN ---
Subjective - Date & Time of Evaluation Date of Evaluation: 04/13/18 Time of Evaluation: 18:37 - Subjective Subjective: pt is seen and examined,follow up consult is dictated #[id number] start ivf ns 0.9 % at 70 ml/hr bmp in am Objective - Vital Signs/Intake and Output Vital Signs (last 24 hours): Temp Pulse Resp BP Pulse Ox 97.3 F L 115 H 20 98/68 L 94 L 04/13/18 18:00 04/13/18 18:00 04/13/18 18:00 04/13/18 18:30 04/13/18 18:00 Intake and Output: 04/13/18 04/13/18 06:59 18:59 Intake Total 0 400 Output Total 0 Balance 0 400 - Medications Medications: Current Medications Sodium Chloride (Sodium Chloride 0.9%) 1,000 mls @ 70 mls/hr IV .[id number] [facility] Stop: 04/14/18 18:46 Lactulose (Enulose) 20 gm PO BID [facility] Last Admin: 04/13/18 17:36 Dose: Not Given Morphine Sulfate (Morphine) 1 mg IVP Q4 PRN PRN Reason: Pain, severe (8-10) Last Admin: 04/13/18 06:37 Dose: 1 mg Pantoprazole Sodium (Protonix Ec Tab) 40 mg PO DAILY [facility] Last Admin: 04/13/18 10:02 Dose: Not Given Thiamine HCl (Vitamin B1 Tab) 100 mg PO DAILY [facility] Last Admin: 04/13/18 10:02 Dose: Not Given - Labs Labs: 04/13/18 06:57 04/13/18 06:57 PT 13.3 SECONDS (9.7-12.2) H 04/13/18 06:57 INR 1.2 04/13/18 06:57 APTT 24 SECONDS (21-34) 04/13/18 06:57
[2018-04-13] MEDS: Sodium Chloride 0.9% 1,000 ML IV SCH (19:06)
--- NOTE | 2018-04-13 23:22 | CP.PCM.PN ---
Subjective - Date & Time of Evaluation Date of Evaluation: 04/11/18 Time of Evaluation: 20:00 - Subjective Subjective: Feels weak Objective - Vital Signs/Intake and Output Vital Signs (last 24 hours): Temp Pulse Resp BP Pulse Ox 97.7 F 114 H 20 101/67 96 04/13/18 21:15 04/13/18 21:49 04/13/18 21:15 04/13/18 21:49 04/13/18 21:15 Intake and Output: 04/13/18 04/14/18 18:59 06:59 Intake Total 400 Balance 400 - Medications Medications: Current Medications Sodium Chloride (Sodium Chloride 0.9%) 1,000 mls @ 70 mls/hr IV .[id number] [facility] Stop: 04/14/18 18:46 Last Admin: 04/13/18 19:06 Dose: 70 mls/hr Lactulose (Enulose) 20 gm PO BID [facility] Last Admin: 04/13/18 17:36 Dose: Not Given Morphine Sulfate (Morphine) 1 mg IVP Q4 PRN PRN Reason: Pain, severe (8-10) Last Admin: 04/13/18 06:37 Dose: 1 mg Pantoprazole Sodium (Protonix Ec Tab) 40 mg PO DAILY [facility] Last Admin: 04/13/18 10:02 Dose: Not Given Thiamine HCl (Vitamin B1 Tab) 100 mg PO DAILY [facility] Last Admin: 04/13/18 10:02 Dose: Not Given - Labs Labs: 04/13/18 06:57 04/13/18 06:57 PT 13.3 SECONDS (9.7-12.2) H 04/13/18 06:57 INR 1.2 04/13/18 06:57 APTT 24 SECONDS (21-34) 04/13/18 06:57 - Head Exam Head Exam: ATRAUMATIC - Eye Exam Eye Exam: Normal appearance - ENT Exam ENT Exam: Mucous Membranes Dry - Respiratory Exam Respiratory Exam: NORMAL BREATHING PATTERN - Cardiovascular Exam Cardiovascular Exam: +S1, +S2 - GI/Abdominal Exam GI & Abdominal Exam: Normal Bowel Sounds Assessment and Plan (1) Metastatic cancer Assessment & Plan: pathology likely small cell lung cancer discussed with the patient and sister Gina wants to think about options for treatment at [place] Status: Acute
--- NOTE | 2018-04-13 23:24 | CP.PCM.PN ---
Subjective - Date & Time of Evaluation Date of Evaluation: 04/12/18 Time of Evaluation: 13:00 - Subjective Subjective: Has some lower back pain, leg swelling Objective - Vital Signs/Intake and Output Vital Signs (last 24 hours): Temp Pulse Resp BP Pulse Ox 97.7 F 114 H 20 101/67 96 04/13/18 21:15 04/13/18 21:49 04/13/18 21:15 04/13/18 21:49 04/13/18 21:15 Intake and Output: 04/13/18 04/14/18 18:59 06:59 Intake Total 400 Balance 400 - Medications Medications: Current Medications Sodium Chloride (Sodium Chloride 0.9%) 1,000 mls @ 70 mls/hr IV .[id number] [facility] Stop: 04/14/18 18:46 Last Admin: 04/13/18 19:06 Dose: 70 mls/hr Lactulose (Enulose) 20 gm PO BID [facility] Last Admin: 04/13/18 17:36 Dose: Not Given Morphine Sulfate (Morphine) 1 mg IVP Q4 PRN PRN Reason: Pain, severe (8-10) Last Admin: 04/13/18 06:37 Dose: 1 mg Pantoprazole Sodium (Protonix Ec Tab) 40 mg PO DAILY [facility] Last Admin: 04/13/18 10:02 Dose: Not Given Thiamine HCl (Vitamin B1 Tab) 100 mg PO DAILY [facility] Last Admin: 04/13/18 10:02 Dose: Not Given - Labs Labs: 04/13/18 06:57 04/13/18 06:57 PT 13.3 SECONDS (9.7-12.2) H 04/13/18 06:57 INR 1.2 04/13/18 06:57 APTT 24 SECONDS (21-34) 04/13/18 06:57 - Head Exam Head Exam: ATRAUMATIC - Eye Exam Eye Exam: Normal appearance - ENT Exam ENT Exam: Mucous Membranes Dry - Respiratory Exam Respiratory Exam: NORMAL BREATHING PATTERN - Cardiovascular Exam Cardiovascular Exam: +S1, +S2 - GI/Abdominal Exam GI & Abdominal Exam: Normal Bowel Sounds - Extremities Exam Extremities Exam: Pedal Edema Assessment and Plan (1) Metastatic cancer Assessment & Plan: pathology likely small cell lung cancer discussed with the patient and sister Gina wants to think about options for treatment at [place] discussed inpatient chemotherapy as liver enlargement from liver mets may be compressing venous system, contributing to LE edema wants to think about it Status: Acute
--- NOTE | 2018-04-13 23:25 | CP.PCM.PN ---
Subjective - Date & Time of Evaluation Date of Evaluation: 04/13/18 Time of Evaluation: 20:00 - Subjective Subjective: No complaints. Objective - Vital Signs/Intake and Output Vital Signs (last 24 hours): Temp Pulse Resp BP Pulse Ox 97.7 F 114 H 20 101/67 96 04/13/18 21:15 04/13/18 21:49 04/13/18 21:15 04/13/18 21:49 04/13/18 21:15 Intake and Output: 04/13/18 04/14/18 18:59 06:59 Intake Total 400 Balance 400 - Medications Medications: Current Medications Sodium Chloride (Sodium Chloride 0.9%) 1,000 mls @ 70 mls/hr IV .[id number] [facility] Stop: 04/14/18 18:46 Last Admin: 04/13/18 19:06 Dose: 70 mls/hr Lactulose (Enulose) 20 gm PO BID [facility] Last Admin: 04/13/18 17:36 Dose: Not Given Morphine Sulfate (Morphine) 1 mg IVP Q4 PRN PRN Reason: Pain, severe (8-10) Last Admin: 04/13/18 06:37 Dose: 1 mg Pantoprazole Sodium (Protonix Ec Tab) 40 mg PO DAILY [facility] Last Admin: 04/13/18 10:02 Dose: Not Given Thiamine HCl (Vitamin B1 Tab) 100 mg PO DAILY [facility] Last Admin: 04/13/18 10:02 Dose: Not Given - Labs Labs: 04/13/18 06:57 04/13/18 06:57 PT 13.3 SECONDS (9.7-12.2) H 04/13/18 06:57 INR 1.2 04/13/18 06:57 APTT 24 SECONDS (21-34) 04/13/18 06:57 - Head Exam Head Exam: ATRAUMATIC - Eye Exam Eye Exam: Normal appearance - ENT Exam ENT Exam: Mucous Membranes Dry - Respiratory Exam Respiratory Exam: NORMAL BREATHING PATTERN - Cardiovascular Exam Cardiovascular Exam: +S1, +S2 - GI/Abdominal Exam GI & Abdominal Exam: Normal Bowel Sounds Assessment and Plan (1) Metastatic cancer Assessment & Plan: pathology likely small cell lung cancer discussed with the patient and sister Gina wants to think about options for treatment at [place] discussed inpatient chemotherapy as liver enlargement from liver mets may be compressing venous system, contributing to LE edema wants to think about it will rediscuss with patient and sister tomorrow Status: Acute
--- NOTE | 2018-04-14 00:17 | OP ---
PROCEDURE DATE: 04/13/2018 PREOPERATIVE DIAGNOSIS: Lack of venous access, recently diagnosed malignancy. PROCEDURE: Port-A-Cath right jugular vein with C-arm fluoroscopy, ultrasound-guided puncture, and micropuncture technique. SURGEON: Bishop Zavala Jr., MD SHAPING MACHINE OPERATOR: None. ANESTHESIOLOGIST: Dr. Núñez. ANESTHESIA: Local sedation. INDICATIONS: The patient is an older middle-aged woman who was recently diagnosed malignancy who requires a Port-A-Cath for chemotherapy. OPERATIVE FINDINGS: Port was inserted uneventfully in the jugular vein. DESCRIPTION OF PROCEDURE: The patient was given local anesthesia. Using ultrasound guidance and micropuncture technique, the right jugular vein was punctured. Under fluoroscopic control, a guidewire was advanced centrally. A sheath dilator was passed over this. A pocket was created on the chest wall and then the catheter was placed with the port on the right chest wall going through the jugular vein to the superior vena cava. This was then flushed with heparinized saline in excellent return, and the wounds were closed. Blood loss was 5 mL. Operation carried out is Port-A-Cath in right jugular vein with C-arm fluoroscopy, ultrasound-guided puncture, and micropuncture technique. Ultrasound imaging of the neck showed the vein was 15 mm in diameter with normal compressibility and no intraluminal thrombosis. Bishop Zavala Jr., MD
--- NOTE | 2018-04-14 01:56 | PN ---
DATE: 04/13/2018 SUBJECTIVE: The patient was seen and examined at the bedside. The patient offers no new complaints, awaiting for procedure this morning after procedure noted. PHYSICAL EXAMINATION: GENERAL: Elderly female, lying in bed, in acute distress. VITAL SIGNS: Blood pressure after the procedure was 86/63 with fluid bolus improve to 118/74, pulse 115, respirations 20, temperature 97.3 degree Fahrenheit, O2 sat is 94% on 2 liters nasal canula. HEENT: Pupils are equal and reacting to light and accommodation. Extraocular muscles intact. Positive icterus. No pallor. No oral thrush. Dry mucous membranes. NECK: Supple. No JVD. LUNGS: Bilateral vesicular breath sounds. No wheezing. No rhonchi. CARDIOVASCULAR SYSTEM: S1 and S2 present, regular. ABDOMEN: Soft. Bowel sounds present. No guarding. No rigidity. No rebound tenderness noted. CENTRAL NERVOUS SYSTEM: Alert, awake, oriented x3. No focal deficits noted. EXTREMITIES: Bilateral lower extremity pitting edema present. MEDICATIONS: Include lactulose 20 g p.o. b.i.d., morphine 1 mg IV push every 4 hours p.r.n., Protonix 40 mg daily, normal saline 70 mL in an hour, thiamine 100 mg daily. LABORATORY DATA: Labs from this morning: WBC 12.9, hemoglobin 13.2, hematocrit 38.6, platelets 383. PT 13.3, INR 1.2, PTT 24. Sodium 125, potassium 4.7, chloride 86, bicarb 27, BUN 20, creatinine 0.7, glucose 75, calcium 9.5. ASSESSMENT AND PLAN: Elderly female with history of hypertension, hyperlipidemia, chronic low back pain, cirrhosis of liver, right lung mass consistent with small cell lung cancer with possible metastasis to the liver, possible liver pressing onto inferior vena cava causing lower extremity edema, persistent hyponatremia, electrolyte imbalance, status post Port-A-Cath placement this morning. I discussed with the patient's sister, Gina, at length. I explained the patient's critical condition and poor prognosis. The patient wants to get further care either at [facility] or at [facility]. I advised the patient's sister to find the doctor to transfer the care. I received phone call from Gina to call Dr. Yee from [facility]. I also talked to the physician. I explained to Gina that she has to talk to the doctor. Once the doctor accepts to take care for the patient, then we will be able to start the process of transferring the patient's care at [facility]. Later, I received a phone call from Dr. Yee. I discussed the case and explained the patient's condition and diagnosis with Dr. Yee. As per him, he would prefer the patient to be seen as an outpatient, and he would not prefer the patient's transfer, recommend that to stabilize the patient and discharge the patient, then to be followed up with him if the family wants to follow with him as outpatient. I discussed with Dr. Hernandez. We will follow up with the patient's sister again if does not want any further treatment at [facility], we will request social economist to find subacute rehab placement for her, and the patient needs to be followed up with Oncology as outpatient. We will continue with supportive care. The patient's blood pressure was low postoperatively, received fluid bolus. We will give gentle hydration. We will monitor the patient's vitals closely. Her prognosis is guarded. Aislinn Hennessy MD
--- NOTE | 2018-04-14 04:13 | PN ---
DATE: 04/13/2018 FOLLOWUP RENAL CONSULTATION LOCATION: The patient is located in 559, bed A. REQUESTED BY: Aislinn Hennessy MD REASON FOR FOLLOWUP: Hyponatremia, prerenal azotemia. SUBJECTIVE: Mrs. Gil is a 68-year-old elderly female with a past medical history significant for hypertension, CVA, hyperlipidemia, chronic smoker who was admitted with chief complaints of back pain. The patient was subsequently found to have a right lung mass and also severe hepatomegaly and status post right lung mass biopsy by [facility] consistent with malignancy with neuroendocrine features. The patient underwent for the Port-A-Cath placement this afternoon. The patient was hypotensive, status post normal saline bolus 500 mL. The patient is out of bed to chair. Denies any headache or dizziness. Complains of feeling weak and tired. No chest pain. No palpitation. No fever. No cough. No abdominal pain. No nausea, vomiting, or diarrhea. PHYSICAL EXAMINATION: VITAL SIGNS: As follows: Blood pressure 98/68, pulse 115 to 120, respirations 20, temperature 97.4, saturation 94% to 95%. Height 5 feet 4 inches. Weight is 135 pounds. GENERAL: Mrs. Gil is a 68-year-old elderly female, moderately built, moderately nourished, not in acute distress. HEENT: Pupils are normal and reactive to light and accommodation. Conjunctivae pink. Sclerae anicteric. Tongue is moist and trachea is midline. LUNGS: Symmetric on both sides. Bilateral breath sounds present. Clear to auscultation. CARDIOVASCULAR SYSTEM: [place] at the fifth intercostal space, midclavicular line. S1, S2 audible. No murmur or gallop. ABDOMEN: Distended and hepatomegaly. Mild tenderness. No guarding. No rigidity. Bowel sounds present. CENTRAL NERVOUS SYSTEM: The patient is alert, awake, oriented x3. Nonfocal neuro examination. Cranial nerves II-XII grossly intact. Sensory and motor system is within normal limits. EXTREMITIES: No cyanosis, no clubbing. The patient has 2+ edema in both lower extremities. MEDICATIONS: Her current medications include as follows: Lactulose 20 g p.o. b.i.d., morphine 1 mg IV push every 4 hours p.r.n., Protonix 40 mg daily, IV fluids started on normal saline at 70 mL per hour, and thiamine 100 mg p.o. daily. LABORATORY DATA: Include as follows as of 04/13/2018: WBC 12.9, hemoglobin 13.2, hematocrit is 38.6, and platelets 383. PT 13.3, PTT 24, INR 1.2. Sodium 125, potassium 4.7, chloride 86, CO2 of 27, BUN 20, creatinine 0.7, glucose 75, calcium 9.5. As of 04/12/2018, ammonia level is 35. ASSESSMENT: In summary, Mrs. Gil is a 68-year-old elderly female with hypertension, cerebrovascular accident, chronic smoker, hyperlipidemia who was admitted with back pain and found to have a large right upper lobe lung mass and also hepatomegaly and status post biopsy of the liver consistent with a poorly differentiated malignant neoplasm with extensive necrosis with features of neuroendocrine malignant neoplasm with a low sodium and status post Port-A-Cath placement. 1. Hyponatremia, rule out syndrome of inappropriate secretion of antidiuretic hormone, rule out hypotonic hypovolemic hyponatremia. 2. Prerenal azotemia. 3. Metastatic lung cancer, most likely lung is the primary and with metastasis to the liver. 4. Hypotension most likely secondary to intravascular depletion. PLAN: Continue IV fluids normal saline at 70 mL per hour and repeat BMP in the a.m. and check echocardiogram for left ventricular ejection fraction. We will follow with you. Thank you for allowing me to participate in your patient's care. Follow up with Oncology for further management. Overall prognosis is guarded. Britney Hennessy MD
--- NOTE | 2018-04-14 08:29 | CP.PCM.PN ---
Subjective - Date & Time of Evaluation Date of Evaluation: 04/14/18 Time of Evaluation: 08:28 - Subjective Subjective: Vascular surgery progress note for Dr. Clifford Sams, PGY-2 Pt S & E at bedside at 0700 Pt sitting in chair at bedside. No current complaints. Objective - Vital Signs/Intake and Output Vital Signs (last 24 hours): Temp Pulse Resp BP Pulse Ox 97.5 F L 109 H 20 116/71 96 04/14/18 00:00 04/14/18 04:26 04/14/18 00:00 04/14/18 00:00 04/14/18 00:00 Intake and Output: 04/14/18 04/14/18 06:59 18:59 Intake Total 560 Output Total 200 Balance 360 - Medications Medications: Current Medications Sodium Chloride (Sodium Chloride 0.9%) 1,000 mls @ 70 mls/hr IV .[id number] [facility] Stop: 04/14/18 18:46 Last Admin: 04/13/18 19:06 Dose: 70 mls/hr Lactulose (Enulose) 20 gm PO BID [facility] Last Admin: 04/13/18 17:36 Dose: Not Given Morphine Sulfate (Morphine) 1 mg IVP Q4 PRN PRN Reason: Pain, severe (8-10) Last Admin: 04/14/18 01:10 Dose: 1 mg Pantoprazole Sodium (Protonix Ec Tab) 40 mg PO DAILY [facility] Last Admin: 04/13/18 10:02 Dose: Not Given Thiamine HCl (Vitamin B1 Tab) 100 mg PO DAILY [facility] Last Admin: 04/13/18 10:02 Dose: Not Given - Labs Labs: 04/13/18 06:57 04/13/18 06:57 PT 13.3 SECONDS (9.7-12.2) H 04/13/18 06:57 INR 1.2 04/13/18 06:57 APTT 24 SECONDS (21-34) 04/13/18 06:57 - Constitutional Appears: Non-toxic, No Acute Distress - Head Exam Head Exam: ATRAUMATIC, NORMAL INSPECTION, NORMOCEPHALIC - Eye Exam Eye Exam: EOMI, Normal appearance - ENT Exam ENT Exam: Mucous Membranes Moist, Normal Exam - Neck Exam Neck Exam: Full ROM, Normal Inspection - Respiratory Exam Respiratory Exam: Chest Wall Tenderness (over Right chest wall port insertion site- site with dressing in place- clean/dry/intact), NORMAL BREATHING PATTERN - Cardiovascular Exam Cardiovascular Exam: REGULAR RHYTHM, +S1, +S2 - GI/Abdominal Exam GI & Abdominal Exam: Soft. absent: Tenderness - Extremities Exam Extremities Exam: Normal Inspection - Neurological Exam Neurological Exam: Alert, Awake, CN II-XII Intact, Oriented x3 - Psychiatric Exam Psychiatric exam: Normal Affect, Normal Mood - Skin Skin Exam: Dry, Intact, Normal Color, Warm Assessment and Plan - Assessment and Plan (Free Text) Assessment: 68F POD#1 s/p Right jugular portacath placement Plan: Hypotensive overnight BP responded to fluid challenges Normotensive now No further vascular surgery intervention Thank you for this consult Will DW Dr. Sally Sams, PGY-2
[2018-04-14 08:32] LABS: BLOOD UREA NITROGEN 23 mg/dL (7-17); CALCIUM 9.2 mg/dl (8.6-10.4); GFR NON-AFRICAN AMERICAN > 60
--- NOTE | 2018-04-14 09:09 | RAD ---
Date of service: 04/13/2018 PROCEDURE: Intraoperative Fluoroscopy. HISTORY: Chemotherapy for lung cancer. FINDINGS: Fluoroscopic assistance was provided for right-sided Port-A-Cath placement. Please refer to the operative report from [facility]. Large right chest mass is noted.
--- NOTE | 2018-04-14 09:53 | CP.PCM.PN ---
Subjective - Date & Time of Evaluation Date of Evaluation: 04/14/18 Time of Evaluation: 09:53 - Subjective Subjective: Progress note dictated #[id number] Objective - Vital Signs/Intake and Output Vital Signs (last 24 hours): Temp Pulse Resp BP Pulse Ox 97.5 F L 99 H 20 116/71 96 04/14/18 00:00 04/14/18 09:35 04/14/18 00:00 04/14/18 00:00 04/14/18 00:00 Intake and Output: 04/14/18 04/14/18 06:59 18:59 Intake Total 560 Output Total 200 Balance 360 - Medications Medications: Current Medications Sodium Chloride (Sodium Chloride 0.9%) 1,000 mls @ 70 mls/hr IV .[id number] [facility] Stop: 04/14/18 18:46 Last Admin: 04/13/18 19:06 Dose: 70 mls/hr Lactulose (Enulose) 20 gm PO BID [facility] Last Admin: 04/13/18 17:36 Dose: Not Given Morphine Sulfate (Morphine) 1 mg IVP Q4 PRN PRN Reason: Pain, severe (8-10) Last Admin: 04/14/18 01:10 Dose: 1 mg Pantoprazole Sodium (Protonix Ec Tab) 40 mg PO DAILY [facility] Last Admin: 04/13/18 10:02 Dose: Not Given Thiamine HCl (Vitamin B1 Tab) 100 mg PO DAILY [facility] Last Admin: 04/13/18 10:02 Dose: Not Given - Labs Labs: 04/13/18 06:57 04/14/18 01:59 PT 13.3 SECONDS (9.7-12.2) H 04/13/18 06:57 INR 1.2 04/13/18 06:57 APTT 24 SECONDS (21-34) 04/13/18 06:57
[2018-04-14] MEDS: Pantoprazole 40 mg EC Tab PO SCH (10:57)
[2018-04-14] MEDS: Sodium Chloride 0.9% 1,000 ML IV SCH (11:09)
--- NOTE | 2018-04-14 12:19 | CARD ---
APPROVED REPORT Date of service: 04/01/2018 EKG Measurement Heart [id number] <Conclusion> Normal sinus rhythm T wave abnormality, consider inferolateral ischemia Abnormal ECG
--- NOTE | 2018-04-14 15:59 | CP.PCM.PN ---
Subjective - Date & Time of Evaluation Date of Evaluation: 04/14/18 Time of Evaluation: 09:00 - Subjective Subjective: the patient seen and examined Comfortable in no distress Afebrile Pathology consistent with small cell carcinoma No shortness of breath Objective - Vital Signs/Intake and Output Vital Signs (last 24 hours): Temp Pulse Resp BP Pulse Ox 97.5 F L 99 H 20 116/71 96 04/14/18 00:00 04/14/18 09:35 04/14/18 00:00 04/14/18 00:00 04/14/18 00:00 Intake and Output: 04/14/18 04/14/18 06:59 18:59 Intake Total 560 920 Output Total 200 2 Balance 360 918 - Medications Medications: Current Medications Sodium Chloride (Sodium Chloride 0.9%) 1,000 mls @ 70 mls/hr IV .[id number] [facility] Stop: 04/14/18 18:46 Last Admin: 04/14/18 11:09 Dose: 70 mls/hr Lactulose (Enulose) 20 gm PO BID [facility] Last Admin: 04/14/18 10:57 Dose: 20 gm Morphine Sulfate (Morphine) 1 mg IVP Q4 PRN PRN Reason: Pain, severe (8-10) Last Admin: 04/14/18 01:10 Dose: 1 mg Pantoprazole Sodium (Protonix Ec Tab) 40 mg PO DAILY [facility] Last Admin: 04/14/18 10:57 Dose: 40 mg Thiamine HCl (Vitamin B1 Tab) 100 mg PO DAILY [facility] Last Admin: 04/14/18 10:57 Dose: 100 mg - Labs Labs: 04/13/18 06:57 04/14/18 01:59 PT 13.3 SECONDS (9.7-12.2) H 04/13/18 06:57 INR 1.2 04/13/18 06:57 APTT 24 SECONDS (21-34) 04/13/18 06:57 - Head Exam Head Exam: ATRAUMATIC, NORMOCEPHALIC - ENT Exam ENT Exam: Mucous Membranes Moist - Neck Exam Neck Exam: Normal Inspection - Respiratory Exam Respiratory Exam: Clear to Ausculation Bilateral - Cardiovascular Exam Cardiovascular Exam: REGULAR RHYTHM - GI/Abdominal Exam GI & Abdominal Exam: Soft, Normal Bowel Sounds Assessment and Plan (1) Mass of right lung Assessment & Plan: pathology consistent with small cell carcinoma Awaiting for family decision Continue present treatment Followup if necessary Status: Acute
--- NOTE | 2018-04-14 17:37 | CARD ---
APPROVED REPORT Date of service: 04/14/2018 EXAM: Two-dimensional and M-mode echocardiogram with Doppler and color Doppler. Other Information Quality : AverageRhythm : INDICATION LV Function:SystolicDiastolic CA OF LUNG 2D DIMENSIONS IVSd0.7 (0.7-1.1cm)LVDd2.7 (3.9-5.9cm) PWd0.8 (0.7-1.1cm)LVDs1.9 (2.5-4.0cm) FS (%) 28.8 %LVEF (%)57.5 (>50%) M-Mode DIMENSIONS Left Atrium (MM)2.07 (2.5-4.0cm)IVSd0.74 (0.7-1.1cm) Aortic Root2.68 (2.2-3.7cm)LVDd3.38 (4.0-5.6cm) Aortic Cusp Exc.1.21 (1.5-2.0cm)PWd0.76 (0.7-1.1cm) FS (%) 21 %LVDs2.68 (2.0-3.8cm) LVEF (%)60 (>50%) Mitral Valve MV E Agjqoxws67.8cm/sMV A Vsklyzja20.4cm/sE/A ratio0.8 TDI E/Lateral E'0.0E/Medial E'0.0 LEFT VENTRICLE The left ventricle is normal size. There is normal left ventricular wall thickness. The left ventricular ejection fraction is within the normal range. Septal hypokinesis Transmitral Doppler flow pattern is Grade I-abnormal relaxation pattern. RIGHT VENTRICLE The right ventricle is normal size. There is normal right ventricular wall thickness. The right ventricular systolic function is normal. ATRIA The left atrium size is normal. The right atrium size is normal. AORTIC VALVE The aortic valve is not well visualized. No aortic regurgitation is present. There is no aortic valvular stenosis. MITRAL VALVE The mitral valve is not well visualized. There is no mitral valve stenosis. There is no mitral valve regurgitation noted. GREAT VESSELS The aortic root is normal in size. The IVC was not visualized. <Conclusion> The left ventricle is normal size. There is normal left ventricular wall thickness. The left ventricular ejection fraction is within the normal range. Septal hypokinesis Transmitral Doppler flow pattern is Grade I-abnormal relaxation pattern.
--- NOTE | 2018-04-14 19:03 | CP.PCM.PN ---
Subjective - Date & Time of Evaluation Date of Evaluation: 04/14/18 Time of Evaluation: 19:02 - Subjective Subjective: pt is seen and examined, follow up consult is dictated #[id number] c/w gentle hydration, check bmp in am d/w dr. Hernandez in rounds Objective - Vital Signs/Intake and Output Vital Signs (last 24 hours): Temp Pulse Resp BP Pulse Ox 97.6 F 120 H 20 129/80 98 04/14/18 16:00 04/14/18 16:00 04/14/18 16:00 04/14/18 16:00 04/14/18 16:00 Intake and Output: 04/14/18 04/15/18 18:59 06:59 Intake Total 920 Output Total 2 Balance 918 - Medications Medications: Current Medications Lactulose (Enulose) 20 gm PO BID [facility] Last Admin: 04/14/18 17:50 Dose: Not Given Morphine Sulfate (Morphine) 1 mg IVP Q4 PRN PRN Reason: Pain, severe (8-10) Last Admin: 04/14/18 01:10 Dose: 1 mg Pantoprazole Sodium (Protonix Ec Tab) 40 mg PO DAILY [facility] Last Admin: 04/14/18 10:57 Dose: 40 mg Thiamine HCl (Vitamin B1 Tab) 100 mg PO DAILY [facility] Last Admin: 04/14/18 10:57 Dose: 100 mg - Labs Labs: 04/13/18 06:57 04/14/18 01:59 PT 13.3 SECONDS (9.7-12.2) H 04/13/18 06:57 INR 1.2 04/13/18 06:57 APTT 24 SECONDS (21-34) 04/13/18 06:57
--- NOTE | 2018-04-15 02:10 | PN ---
DATE: 04/14/2018 SUBJECTIVE: The patient was seen and examined at bedside. No new complaints. Denies any headache or dizziness. Denies any chest pain, shortness of breath, or wheezing. Complaining of lower extremity swelling which has been there despite diuretic therapy. Denies any other complaints. All other systems reviewed and were found to be negative. PHYSICAL EXAMINATION: GENERAL: Elderly female lying in bed, in no acute distress. VITAL SIGNS: Blood pressure 129/80, pulse 99, respirations 20, temperature 97.6 degrees Fahrenheit, O2 saturation 98% on 2 L nasal cannula. HEENT: Pupils are equal, round, and reacting to light and accommodation. Extraocular muscles intact. Positive icterus. No pallor. No oral thrush. Dry mucous membranes. NECK: Supple. No JVD. LUNGS: Bilateral vesicular breath sounds. No wheezing. No rhonchi. CVS: S1 and S2 present. Regular. ABDOMEN: Soft. Bowel sounds present. No guarding. No rigidity. No rebound tenderness noted. SKIP PITMAN: Alert, awake, and oriented x3. No focal deficits noted. EXTREMITIES: There is bilateral lower extremity pitting edema. MEDICATIONS: Include lactulose 20 gm p.o. b.i.d., morphine 1 mg IV push every 4 hours as needed, Protonix 40 mg daily, thiamine 100 mg p.o. daily. LABORATORY DATA: Labs from this morning, sodium 125, potassium 4.5, chloride 87, bicarb 30, BUN 23, creatinine 0.7, glucose 104, calcium 9.2. ASSESSMENT AND PLAN: Elderly female with history of hypertension, hyperlipidemia, chronic low back pain, ETOH abuse, cirrhosis of liver, right lung mass consistent with small cell lung cancer with metastasis to liver, possible referred pain in the lower back, hyponatremia possibly from syndrome of inappropriate antidiuretic hormone secretion from lung mass, abnormal liver function tests, electrolyte imbalance, lower extremity edema secondary to compression of the IVC from enlarged liver and liver mets. The patient has been refusing and also sister is refusing chemotherapy at this hospital. They want the patient to be either transferred to [facility] or to be discharged to subacute rehab and want to pursue further care for lung cancer as outpatient. Discussed with Dr. Hernandez as per sister. She is waiting to hear from Dr. Yee, oncologist, from [facility] to see if he would be accepting the patient as inpatient. We will continue with supportive care. If the patient refuses further care at [facility], the patient will be discharged to subacute rehab, discussed with social media community manager. We will follow up with social media community manager for discharge planning and transfer either to [facility] or subacute rehab. Awaiting sister's decision upon further care. We will continue with current management. Aislinn Hennessy MD
--- NOTE | 2018-04-15 03:48 | PN ---
DATE: 04/14/2018 LOCATED: In room 559, bed A. REASON FOR FOLLOWUP: Hyponatremia for further evaluation, metastatic lung disease. SUBJECTIVE: Mrs. Gil is a 68 years old elderly female with a past medical history significant for longstanding hypertension, CVA, hyperlipidemia who was admitted with back pain and found to have a right lung mass and also hepatomegaly with possible mets to the liver, status post lung biopsy consistent with malignancy with neuroendocrine features. The patient is not in any acute distress. Denies any chest pain or palpitations. Denies any fever or cough. No nausea. No vomiting. Slight epigastric discomfort. PHYSICAL EXAMINATION: VITAL SIGNS: Blood pressure this afternoon 129/80, pulse 120, respirations 20, temperature 97.6, saturation 98% on 2 L nasal cannula. Height 5 feet and 4 inches and weight 135 pounds. GENERAL: Mrs. Gil is a 68 years old elderly female, moderately built, moderately nourished, not in acute distress. HEENT: Pupils normal and reactive to light and accommodation. Conjunctivae pink. Sclerae anicteric. Tongue is moist. Trachea is midline. LUNGS: Symmetric on both sides, bilateral breath sounds present. No crackles. CVS: [place] at the fifth intercostal space, midclavicular line, S1 and S2 audible. Slightly tachycardiac. No murmur. No gallop. ABDOMEN: Slightly distended. Tenderness in the epigastric region and liver is palpable in the epigastric region and also in the left upper quadrant region and also right upper quadrant region with three to four fingerbreadths below the right costal margin. No abdominal bruits. Bowel sounds present. ASSOCIATE DIRECTOR OF DEVELOPMENT: The patient is alert, awake and oriented x3. Sensory and motor system is grossly within normal limits. EXTREMITIES: No cyanosis. No clubbing. 2+ edema in both lower extremities. CURRENT MEDICATIONS: Lactulose 20 gm p.o. b.i.d., morphine 1 mg IV every 4 hours p.r.n., Protonix 40 mg p.o. daily and thiamine 100 mg p.o. daily. LABORATORY DATA: As of 04/13/2018; WBC 12.9, hemoglobin 13, hematocrit 38.6 and platelets 383. As of 04/14/2018 sodium 125, potassium 4.5, chloride 87, CO2 30, BUN 23, creatinine 0.7 with BUN and creatinine ratio of 1:33 and glucose is 104 and calcium is 9.2. ASSESSMENT: In summary, Mrs. Gil is a 68 years old elderly female with a history of hypertension, hyperlipidemia, cerebrovascular disease, smoker with right lung mass and also hepatomegaly with metastasis to the liver and low sodium. 1. Hyponatremia, rule out syndrome of inappropriate antidiuretic hormone (secretion) secondary to malignancy versus hypotonic, hypovolemic hyponatremia. 2. Prerenal azotemia. 3. Metastatic lung disease. PLAN: The patient and the patient's daughter want to be followed with hematology and oncologist in [facility]. Continue gentle IV hydration. Repeat BMP in the a.m. Follow with oncology. Overall prognosis is poor. Thank you for allowing me to participate in your patient's care. Britney Hennessy MD
[2018-04-15 08:35] VITALS: RESP 20
[2018-04-15 08:54] LABS: BASO % 0.3 % (0.0-2.0); EOS # 0.1 K/uL (0.0-0.7); EOS % 0.9 % (0.0-4.0); HEMOGLOBIN 11.4 g/dL (11.0-16.0); LYMPH # 5.7 K/uL (1.0-4.3); LYMPH % 44.4 % (20.0-40.0); MEAN CELL VOLUME 87.7 fL (81.0-99.0); MEAN CORPUSCULAR HGB CONC 34.2 g/dL (33.0-37.0); MEAN PLATELET VOLUME 8.8 fL (7.2-11.7); MONO # 0.7 K/uL (0.0-0.8); MONO % 5.4 % (0.0-10.0); NEUT # 6.2 K/uL (1.8-7.0); NRBC % 0.1 % (0.0-2.0); RBC 3.79 Mil/uL (3.80-5.20); RED CELL DISTRIBUTION WIDTH 16.2 % (11.5-14.5); WHITE BLOOD COUNT 12.7 K/uL (4.8-10.8)
--- NOTE | 2018-04-15 09:15 | CP.PCM.PN ---
Subjective - Date & Time of Evaluation Date of Evaluation: 04/14/18 Time of Evaluation: 19:00 - Subjective Subjective: No complaints, lower extremity swelling. I spoke to the patient and her sister Gina. They are requesting cancer treatment at [place]. I have discussed that her cancer may worsen quickly and they should make arrangements as soon as possible. Gina has indicated she has sent records yesterday and is awaiting a response. The patient does not want inpatient treatment with chemotherapy at [facility]. Objective - Vital Signs/Intake and Output Vital Signs (last 24 hours): Temp Pulse Resp BP Pulse Ox 98.9 F 109 H 20 129/77 97 04/15/18 08:33 04/15/18 08:33 04/15/18 08:33 04/15/18 08:33 04/15/18 08:33 Intake and Output: 04/15/18 04/15/18 06:59 18:59 Output Total 300 Balance -300 - Medications Medications: Current Medications Lactulose (Enulose) 20 gm PO BID [facility] Last Admin: 04/14/18 17:50 Dose: Not Given Morphine Sulfate (Morphine) 1 mg IVP Q4 PRN PRN Reason: Pain, severe (8-10) Last Admin: 04/15/18 08:50 Dose: 1 mg Pantoprazole Sodium (Protonix Ec Tab) 40 mg PO DAILY [facility] Last Admin: 04/14/18 10:57 Dose: 40 mg Thiamine HCl (Vitamin B1 Tab) 100 mg PO DAILY [facility] Last Admin: 04/14/18 10:57 Dose: 100 mg - Labs Labs: 04/15/18 08:45 04/14/18 01:59 PT 13.3 SECONDS (9.7-12.2) H 04/13/18 06:57 INR 1.2 04/13/18 06:57 APTT 24 SECONDS (21-34) 04/13/18 06:57 - Head Exam Head Exam: ATRAUMATIC - Eye Exam Eye Exam: Normal appearance - ENT Exam ENT Exam: Mucous Membranes Dry - Respiratory Exam Respiratory Exam: NORMAL BREATHING PATTERN - Cardiovascular Exam Cardiovascular Exam: +S1, +S2 - GI/Abdominal Exam GI & Abdominal Exam: Normal Bowel Sounds Assessment and Plan (1) Metastatic cancer Assessment & Plan: 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
[2018-04-15 09:19] LABS: ALB/GLOB RATIO 1.1 (1.0-2.1); ALBUMIN 2.7 g/dL (3.5-5.0); ALT/SGPT 208 U/L (9-52); AST/SGOT 398 U/L (14-36); BLOOD UREA NITROGEN 18 mg/dL (7-17); CALCIUM 8.8 mg/dl (8.6-10.4); GFR NON-AFRICAN AMERICAN > 60
[2018-04-15] MEDS: Pantoprazole 40 mg EC Tab PO SCH (09:48)
--- NOTE | 2018-04-15 10:07 | CP.PCM.PN ---
Subjective - Date & Time of Evaluation Date of Evaluation: 04/15/18 Time of Evaluation: 10:07 - Subjective Subjective: Progress note dictated #[id number] Objective - Vital Signs/Intake and Output Vital Signs (last 24 hours): Temp Pulse Resp BP Pulse Ox 98.9 F 109 H 20 129/77 97 04/15/18 08:33 04/15/18 08:33 04/15/18 08:33 04/15/18 08:33 04/15/18 08:33 Intake and Output: 04/15/18 04/15/18 06:59 18:59 Output Total 300 Balance -300 - Medications Medications: Current Medications Lactulose (Enulose) 20 gm PO BID [facility] Last Admin: 04/15/18 09:47 Dose: Not Given Morphine Sulfate (Morphine) 1 mg IVP Q4 PRN PRN Reason: Pain, severe (8-10) Last Admin: 04/15/18 08:50 Dose: 1 mg Pantoprazole Sodium (Protonix Ec Tab) 40 mg PO DAILY [facility] Last Admin: 04/15/18 09:48 Dose: 40 mg Thiamine HCl (Vitamin B1 Tab) 100 mg PO DAILY [facility] Last Admin: 04/15/18 09:48 Dose: 100 mg - Labs Labs: 04/15/18 08:45 04/15/18 08:45 PT 13.3 SECONDS (9.7-12.2) H 04/13/18 06:57 INR 1.2 04/13/18 06:57 APTT 24 SECONDS (21-34) 04/13/18 06:57
--- NOTE | 2018-04-15 13:47 | VASCLAB ---
Date of service: 04/12/2018 PROCEDURE: Lower Extremity Venous Duplex Exam. HISTORY: Swelling, r/o dvt PRIORS: 04/07/2018, normal. TECHNIQUE: Bilateral common femoral, femoral, popliteal and posterior tibial, peroneal and great saphenous veins were evaluated. Flow was assessed with color Doppler, compressibility, assessment of phasic flow and augmentation response. Report prepared by Prem Fritz, BS, RVT FINDINGS: RIGHT: 1. Common Femoral Vein: 1.1. Compressibility - Fully compressible: Thrombus - None : Flow - Phasic: Augmentation -Normal: Reflux - None. 2. Femoral Vein: 2.1. Compressibility - Fully compressible: Thrombus - None : Flow - Phasic: Augmentation -Normal: Reflux - None. 3. Popliteal Vein: 3.1. Compressibility - Fully compressible: Thrombus - None : Flow - Phasic: Augmentation -Normal: Reflux - None. 4. Posterior Tibial Vein: 4.1. Compressibility - Fully compressible: Thrombus - None: Flow - Phasic: Augmentation -Normal: Reflux - None. 5. Peroneal Vein: 5.1. Compressibility - Fully compressible: Thrombus - None: Flow - Phasic: Augmentation -Normal: Reflux - None. 6. Great Saphenous Vein: 6.1. Compressibility - Fully compressible: Thrombus - None: Flow - Phasic: Augmentation - Normal: Reflux - None. LEFT: 1. Common Femoral Vein: 1.1. Compressibility - Fully compressible: Thrombus - None: Flow - Phasic: Augmentation -Normal: Reflux - None. 2. Femoral Vein: 2.1. Compressibility - Fully compressible: Thrombus - None: Flow - Phasic: Augmentation -Normal: Reflux - None. 3. Popliteal Vein: 3.1. Compressibility - Fully compressible: Thrombus - None : Flow - Phasic: Augmentation -Normal: Reflux - None. 4. Posterior Tibial Vein: 4.1. Compressibility - Fully compressible: Thrombus - None: Flow - Phasic: Augmentation -Normal: Reflux - None. 5. Peroneal Vein: 5.1. Compressibility - Fully compressible: Thrombus - None: Flow - Phasic: Augmentation -Normal: Reflux - None. 6. Great Saphenous Vein: 6.1. Compressibility - Fully compressible: Thrombus - None: Flow - Phasic: Augmentation - Normal: Reflux - None. OTHER FINDINGS: Right: None significant. Left: None significant. IMPRESSION: Right: No evidence of deep or superficial vein thrombosis of the right lower extremity. Normal valve function noted of the right side. Left: No evidence of deep or superficial vein thrombosis of the left lower extremity. Normal valve function noted of the left side.
--- NOTE | 2018-04-15 19:04 | CP.PCM.PN ---
Subjective - Date & Time of Evaluation Date of Evaluation: 04/15/18 Time of Evaluation: 19:04 - Subjective Subjective: pt is seen and examined, follow up consult is dictated #[id number] serum na is improving, c/w ivf ns at 70 ml/hr bmp in am Objective - Vital Signs/Intake and Output Vital Signs (last 24 hours): Temp Pulse Resp BP Pulse Ox 97.9 F 107 H 20 112/77 98 04/15/18 15:00 04/15/18 16:39 04/15/18 15:00 04/15/18 15:00 04/15/18 15:00 - Medications Medications: Current Medications Lactulose (Enulose) 20 gm PO BID [facility] Last Admin: 04/15/18 17:04 Dose: Not Given Morphine Sulfate (Morphine) 1 mg IVP Q4 PRN PRN Reason: Pain, severe (8-10) Last Admin: 04/15/18 08:50 Dose: 1 mg Pantoprazole Sodium (Protonix Ec Tab) 40 mg PO DAILY [facility] Last Admin: 04/15/18 09:48 Dose: 40 mg Thiamine HCl (Vitamin B1 Tab) 100 mg PO DAILY [facility] Last Admin: 04/15/18 09:48 Dose: 100 mg - Labs Labs: 04/15/18 08:45 04/15/18 08:45 PT 13.3 SECONDS (9.7-12.2) H 04/13/18 06:57 INR 1.2 04/13/18 06:57 APTT 24 SECONDS (21-34) 04/13/18 06:57
--- NOTE | 2018-04-16 00:28 | PN ---
DATE: 04/15/2018 SUBJECTIVE: The patient was seen and examined at bedside. The patient offers no new complaints, complaining of persistent low back pain. Denies any shortness of breath, chest pain. PHYSICAL EXAMINATION: GENERAL: Elderly female lying in bed, in no acute distress. VITAL SIGNS: Blood pressure 112/77, pulse 108, respirations 20, temperature 97.9 degrees Fahrenheit, O2 saturation 98% on room air. HEENT: Pupils are equal, round, and reacting to light and accommodation. Positive icterus. No pallor. No oral thrush. No pharyngeal congestion. NECK: Supple. No JVD. LUNGS: Bilateral vesicular breath sounds. No wheezing. No rhonchi. CVS: S1 and S2 present. Regular. ABDOMEN: Soft. Bowel sounds present. No guarding. No rigidity. No rebound tenderness noted. CLINICAL LABORATORY MANAGER: Alert, awake, and oriented x3. No focal deficits noted. EXTREMITIES: Bilateral lower extremity edema present. MEDICATIONS: Include lactulose 20 g p.o. b.i.d., morphine 1 mg IV push every 4 hours, Protonix 40 mg daily, thiamine 100 mg daily. LABORATORY DATA: Labs from this morning: WBC 12.7, hemoglobin 11.4, hematocrit 33.3, platelets 265. Sodium 128, potassium 3.7, chloride 92, bicarb 28, BUN 18, creatinine 0.7, glucose 120, calcium 8.8, phosphorus 1.9, magnesium 1.7, total bilirubin 6.3, AST 398, ALT 208, alkaline phosphatase 614, total protein 5.2, albumin 2.7, ammonia 48. 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 The patient's sister is contacting oncologist from other hospital for possible transfer to the hospital. If there is no accepting physician, she would like the patient to be transferred to subacute rehab and would follow up with oncologist as outpatient. The patient's sister is refusing any inpatient chemotherapy or any further treatment at this hospital. Awaiting for sister's decision on discharge planning. Discussed with [facility]. We will follow up with the patient's sister regarding transfer arrangements and discharge planning. We will continue with supportive care. Sodium is slightly better. Aislinn Hennessy MD
--- NOTE | 2018-04-16 04:51 | PN ---
DATE: 04/15/2018 FOLLOWUP RENAL CONSULTATION LOCATION: The patient was located in room 559, bed A. REQUESTED BY: Aislinn Hennessy MD SUBJECTIVE: Mr. Gil is a 68-year-old elderly female with a history of hypertension, CVA, hyperlipidemia who was admitted with back pain and found to have right lung mass and also hepatomegaly with possible metastasis to the liver, status post lung biopsy consistent with malignancy with neuroendocrine features and also found to have a low serum sodium. The patient is being treated with gentle IV hydration for possible prerenal azotemia and suspected hypotonic, hypovolemic hyponatremia. The patient is feeling better, not in acute distress. No chest pain, no palpitation, no fever, no cough, and no abdominal pain today. The patient is eager to go home or to subacute rehab. PHYSICAL EXAMINATION: VITAL SIGNS: As follows: Blood pressure 112/77, pulse 108, respirations 20, temperature 97.9, saturation 98%. Height 5 feet 4 inches. Weight is 135 pounds. GENERAL: Mrs. Gil is a 68-year-old elderly female, moderately built, moderately nourished, not in distress. HEENT: Pupils are normal and reactive to light and accommodation. Conjunctivae pink. Sclerae anicteric. Tongue is moist. Trachea is midline. LUNGS: Symmetric on both sides. Bilateral breath sounds present. Clear to auscultation. CARDIOVASCULAR SYSTEM: [place] at the fifth intercostal space, midclavicular line. S1, S2 audible. No murmur. No gallop. ABDOMEN: Slightly distended. Liver is palpable three fingers below the right costal margin and also in the epigastric and left upper quadrant firm and consistency. No abdominal bruit. Bowel sounds present. CENTRAL NERVOUS SYSTEM: The patient is alert, awake, oriented x3. Nonfocal neuro examination. Cranial nerves II-XII grossly intact. Sensory and motor system is within normal limits. EXTREMITIES: No cyanosis, no clubbing. The patient has 2+ edema in both lower extremities. MEDICATIONS: Include lactulose, morphine sulfate, Protonix, and thiamine. LABORATORY DATA: Include as follows as of 04/15/2018: WBC 12.7, hemoglobin 11.4, hematocrit is 33.3, platelets 265. Sodium 128, potassium 3.7, chloride 92, CO2 of 28, BUN 18, creatinine 0.7, glucose 120, calcium 8.8, phosphorus 1.9, and magnesium 1.7. Total bili 6.3, AST 398, ALT 208, alkaline phosphatase 614, ammonia 48, total protein 5.1, and albumin is 2.7. ASSESSMENT AND PLAN: In summary, Mrs. 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 1. Prerenal azotemia. Renal function is improving. 2. Hyponatremia, most likely secondary to hypotonic hypovolemic hyponatremia. Continue gentle intravenous hydration normal saline at 70 mL per hour for another 24 hours. Repeat basic metabolic panel in the morning. 3. 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 Continue followup with Hematology for possible chemotherapy. The patient and her sister are thinking of seeing oncologist in [facility]. Awaiting for the family decision for the chemotherapy by Dr. Hernandez. Overall prognosis is very poor. Thank you for allowing me to participate in your patient's care. Continue monitor serum sodium. Britney Hennessy MD
[2018-04-16] MEDS: Pantoprazole 40 mg EC Tab PO SCH (09:42)
--- NOTE | 2018-04-16 10:42 | CP.PCM.PN ---
Subjective - Date & Time of Evaluation Date of Evaluation: 04/16/18 Time of Evaluation: 10:42 - Subjective Subjective: Progress note dictated #[id number] Objective - Vital Signs/Intake and Output Vital Signs (last 24 hours): Temp Pulse Resp BP Pulse Ox 97.5 F L 111 H 20 118/78 98 04/16/18 00:00 04/16/18 04:25 04/16/18 00:00 04/16/18 00:00 04/16/18 00:00 Intake and Output: 04/16/18 04/16/18 06:59 18:59 Intake Total 320 Balance 320 - Medications Medications: Current Medications Lactulose (Enulose) 20 gm PO BID [facility] Last Admin: 04/16/18 09:42 Dose: 20 gm Morphine Sulfate (Morphine) 1 mg IVP Q4 PRN PRN Reason: Pain, severe (8-10) Last Admin: 04/15/18 08:50 Dose: 1 mg Pantoprazole Sodium (Protonix Ec Tab) 40 mg PO DAILY [facility] Last Admin: 04/16/18 09:42 Dose: 40 mg Thiamine HCl (Vitamin B1 Tab) 100 mg PO DAILY [facility] Last Admin: 04/16/18 09:42 Dose: 100 mg - Labs Labs: 04/15/18 08:45 04/15/18 08:45 PT 13.3 SECONDS (9.7-12.2) H 04/13/18 06:57 INR 1.2 04/13/18 06:57 APTT 24 SECONDS (21-34) 04/13/18 06:57
--- NOTE | 2018-04-16 12:41 | CP.PCM.PN ---
Subjective - Date & Time of Evaluation Date of Evaluation: 04/16/18 Time of Evaluation: 12:40 - Subjective Subjective: pt is seen and examined, follow up consult is dictated #[id number] pt is willing to go to [facility] in [facility] , close to pt's sister's house will start ivf ns at 70 ml/hr check bmp today Objective - Vital Signs/Intake and Output Vital Signs (last 24 hours): Temp Pulse Resp BP Pulse Ox 97.5 F L 104 H 20 118/78 98 04/16/18 00:00 04/16/18 07:30 04/16/18 00:00 04/16/18 00:00 04/16/18 00:00 Intake and Output: 04/16/18 04/16/18 06:59 18:59 Intake Total 320 Balance 320 - Medications Medications: Current Medications Lactulose (Enulose) 20 gm PO BID [facility] Last Admin: 04/16/18 09:42 Dose: 20 gm Morphine Sulfate (Morphine) 1 mg IVP Q4 PRN PRN Reason: Pain, severe (8-10) Last Admin: 04/15/18 08:50 Dose: 1 mg Pantoprazole Sodium (Protonix Ec Tab) 40 mg PO DAILY [facility] Last Admin: 04/16/18 09:42 Dose: 40 mg Potassium Phos/Sodium Phos (Neutra-Phos) 1 pkt PO QID [facility] Stop: 04/19/18 14:01 Thiamine HCl (Vitamin B1 Tab) 100 mg PO DAILY [facility] Last Admin: 04/16/18 09:42 Dose: 100 mg - Labs Labs: 04/15/18 08:45 04/15/18 08:45 PT 13.3 SECONDS (9.7-12.2) H 04/13/18 06:57 INR 1.2 04/13/18 06:57 APTT 24 SECONDS (21-34) 04/13/18 06:57
[2018-04-16 13:29] LABS: BLOOD UREA NITROGEN 18 mg/dL (7-17); CALCIUM 9.1 mg/dl (8.6-10.4); GFR NON-AFRICAN AMERICAN > 60
[2018-04-16] MEDS: Sodium Chloride 0.9% 1,000 ML IV SCH (13:39)
[2018-04-16] MEDS: Potassium & Sodium Phosphate PO SCH ×3 (14:18→21:10)
--- NOTE | 2018-04-16 16:22 | PN ---
DATE: 04/16/2018 SUBJECTIVE: The patient is seen and examined at bedside. The patient is still complaining of feeling tired and fatigued, complaining of low back pain. Denies any other new complaints. PHYSICAL EXAMINATION: GENERAL: Elderly female, sitting in chair, in no acute distress. VITAL SIGNS: Blood pressure 118/78, pulse 112, respirations 20, temperature 97.5 degrees Fahrenheit, O2 saturations 98% on room air. HEENT: Pupils equal, round, and reacting to light and accommodation. Extraocular muscles intact. Positive icterus. No pallor. No oral thrush. No pharyngeal congestion. NECK: Supple. No JVD. LUNGS: Bilateral vesicular breath sounds. No wheezing, no rhonchi. CARDIOVASCULAR SYSTEM: S1 and S2 present. Regular. ABDOMEN: Soft. Bowel sounds present. No guarding. No rigidity. No rebound tenderness noted. CENTRAL NERVOUS SYSTEM: Alert, awake, and oriented x3. No focal deficits noted. EXTREMITIES: Bilateral lower extremity edema noted. MEDICATIONS: Lactulose 20 g p.o. b.i.d, morphine 1 mg IV push every 4 hours p.r.n., Protonix 40 mg daily, Neutra-Phos one tab p.o. 4 times a day, thiamine 100 mg p.o. daily. LABORATORY DATA: No new labs from this morning. ASSESSMENT AND PLAN: Elderly female with history of hypertension, hyperlipidemia, chronic low back pain, admitted with ethanol abuse, cirrhosis of liver, right lung mass consistent with small cell lung carcinoma with metastasis to the liver, and hepatomegaly, pressing on to inferior vena cava, obstructing venous return from lower extremities causing lower extremity edema, hyponatremia, hepatic encephalopathy from cirrhosis of the liver with slightly elevated ammonia levels, worsening liver function tests. Awaiting for the patient and the patient's sisters to decide on treatment plan whether to get chemotherapy in-house or to be transferred to another hospital or possible subacute rehab placement. All the options were given to the sister. The patient and the patient's sister refusing any further treatment or chemotherapy to be given while she is in the hospital and she is making her arrangements either for transfer or for another oncologist to give her chemotherapy. We will try to contact the patient's sister today. Follow up on discharge planning. Aislinn Hennessy MD
--- NOTE | 2018-04-17 02:10 | PN ---
DATE: 04/16/2018 LOCATION: Room 559, bed A. REQUESTED BY: Dr. Aislinn Hennessy. REASON FOR FOLLOWUP: Hyponatremia, renal failure, prerenal. SUBJECTIVE: Mrs. Gil is a 68 years old elderly female with history of hypertension, CVA of back, hyperlipidemia was admitted with back pain and subsequently the patient was found to have right lung mass and hepatomegaly, status post right lung biopsy by interventional radiologist consistent with malignant neoplasm with neuroendocrine features, consistent with small cell carcinoma of the lung. The patient and the patient's sister wants to be transferred to subacute rehab close to the patient's sister house in [place] awaiting for the insurance approval. The patient is not in acute distress. Denies any headache, dizziness. Denies any chest pain or palpitation. Denies any fever or cough. No abdominal pain, nausea, vomiting, diarrhea. PHYSICAL EXAMINATION: VITAL SIGNS: Blood pressure 112/80, pulse 110, respirations 20, temperature 98, saturating 95%. Height 5 feet 4 inches, weight is 135 pounds. GENERAL: Mrs. Gil is a 68 years old elderly female, moderately built, moderately nourished, not in distress. HEENT: Pupils normal, react to light and accommodation. Conjunctivae pink. Sclerae anicteric. Tongue is moist and trachea is midline. LUNGS: Symmetric on both sides. Bilateral breath sounds present. Clear to auscultation. No crackles. CVS: [place] at the fifth intercostal space mid to midclavicular line. S1 and S2 audible. No murmur or gallop. ABDOMEN: Normal in appearance, slightly protuberant and tenderness in the right upper quadrant in the epigastric region and liver is palpable in the epigastric and right upper quadrant and on the left upper quadrant, also palpable three fingerbreadth below the right costal margin and mild tenderness. No guarding, no rigidity and no abdominal bruit. Bowel sounds present. VIDEOGRAPHER: The patient is alert, awake, oriented x2-3. Sensory and motor system is grossly within normal limits. EXTREMITIES: No cyanosis, no clubbing. The patient has a 2+ edema in both lower extremities. CURRENT MEDICATIONS: Lactulose 20 gm p.o. b.i.d., morphine 1 mg IV push every 4 hours p.r.n. and Neutra-Phos 1 packet p.o. q.i.d., Protonix 40 mg p.o. daily, IV fluids normal saline at 70 mL/hour. LABORATORY DATA: No new labs are available this morning. As of 04/15/2018; BUN and creatinine 18/0.7, sodium is 128, potassium 3.7, chloride 92, CO2 28 and glucose is 120. Labs this afternoon sodium is 130, potassium 3.8, chloride 90, CO2 28, BUN 18, creatinine 0.5, glucose 106, calcium 9.1. ASSESSMENT: In summary, Mrs. Gil is a 68 years old elderly female with a history of hypertension, hyperlipidemia, cerebrovascular accident with right lung mass and hepatomegaly with metastatic liver disease and low sodium and increased BUN and creatinine ratio. 1. Prerenal azotemia secondary to intravascular depletion. 2. Hyponatremia secondary to hypotonic hypovolemic hyponatremia, doubt syndrome of inappropriate antidiuretic hormone (secretion) at this time. Serum sodium is improving slowly with normal saline IV fluids. 3. Metastatic lung cancer. 4. Hypertension. Blood pressure is stable. Continue IV fluids normal saline and 70 mL/hour. 5. Abnormal LFTs secondary to malignancy and cannot rule out cholestatic jaundice. 6. Edema of the legs, most likely secondary to compression of the liver on the inferior vena cava and decreased venous return. PLAN: The patient wants to go to subacute rehab close to the patient's sisters house in [place] and want to follow up with oncologist in [place]. Continue IV fluids and follow up BMP and follow up with social service for subacute rehab. Thank you for allowing me to participate in your patient's care. Britney Hennessy MD
[2018-04-17] MEDS: Sodium Chloride 0.9% 1,000 ML IV SCH (03:41)
[2018-04-17] MEDS: Pantoprazole 40 mg EC Tab PO SCH (10:30)
[2018-04-17] MEDS: Potassium & Sodium Phosphate PO SCH ×4 (10:30→21:53)
[2018-04-17 11:08] LABS: HEMOGLOBIN 12.4 g/dL (11.0-16.0); MEAN PLATELET VOLUME 9.1 fL (7.2-11.7)
[2018-04-17 11:22] LABS: ALBUMIN 3.1 g/dL (3.5-5.0); ALT/SGPT 217 U/L (9-52); AST/SGOT 363 U/L (14-36); BLOOD UREA NITROGEN 17 mg/dL (7-17); CALCIUM 9.1 mg/dl (8.6-10.4); GFR NON-AFRICAN AMERICAN > 60; MEAN CELL VOLUME 88.8 fL (81.0-99.0); MEAN CORPUSCULAR HEMOGLOBIN 29.8 pg (27.0-31.0); MEAN CORPUSCULAR HGB CONC 33.5 g/dL (33.0-37.0); RBC 4.15 Mil/uL (3.80-5.20); WHITE BLOOD COUNT 13.5 K/uL (4.8-10.8)
[2018-04-17 11:54] LABS: LYMPH # 1.5 K/uL (1.0-4.3)
--- NOTE | 2018-04-17 13:22 | CP.PCM.PN ---
Subjective - Date & Time of Evaluation Date of Evaluation: 04/17/18 Time of Evaluation: 13:21 - Subjective Subjective: Progress note dictated #[id number] Objective - Vital Signs/Intake and Output Vital Signs (last 24 hours): Temp Pulse Resp BP Pulse Ox 97.5 F L 108 H 20 118/71 95 04/17/18 07:00 04/17/18 08:13 04/17/18 07:00 04/17/18 07:00 04/17/18 07:00 Intake and Output: 04/17/18 04/17/18 06:59 18:59 Output Total 550 Balance -550 - Medications Medications: Current Medications Sodium Chloride (Sodium Chloride 0.9%) 1,000 mls @ 70 mls/hr IV .[id number] [facility] Last Admin: 04/17/18 03:41 Dose: 70 mls/hr Lactulose (Enulose) 20 gm PO BID [facility] Last Admin: 04/17/18 10:30 Dose: 20 gm Morphine Sulfate (Morphine) 1 mg IVP Q4 PRN PRN Reason: Pain, severe (8-10) Last Admin: 04/17/18 03:41 Dose: 1 mg Pantoprazole Sodium (Protonix Ec Tab) 40 mg PO DAILY [facility] Last Admin: 04/17/18 10:30 Dose: 40 mg Potassium Phos/Sodium Phos (Neutra-Phos) 1 pkt PO QID [facility] Stop: 04/19/18 14:01 Last Admin: 04/17/18 10:30 Dose: 1 pkt - Labs Labs: 04/17/18 11:04 04/17/18 11:04 PT 13.3 SECONDS (9.7-12.2) H 04/13/18 06:57 INR 1.2 04/13/18 06:57 APTT 24 SECONDS (21-34) 04/13/18 06:57
--- NOTE | 2018-04-17 15:43 | CP.PCM.PN ---
Subjective - Date & Time of Evaluation Date of Evaluation: 04/17/18 Time of Evaluation: 15:43 - Subjective Subjective: pt is seen and examined, follow up consult is dictated #[id number] c/w gentle hydration bmp in am Objective - Vital Signs/Intake and Output Vital Signs (last 24 hours): Temp Pulse Resp BP Pulse Ox 97.5 F L 108 H 20 118/71 95 04/17/18 07:00 04/17/18 08:13 04/17/18 07:00 04/17/18 07:00 04/17/18 07:00 Intake and Output: 04/17/18 04/17/18 06:59 18:59 Output Total 550 Balance -550 - Medications Medications: Current Medications Sodium Chloride (Sodium Chloride 0.9%) 1,000 mls @ 70 mls/hr IV .[id number] [facility] Last Admin: 04/17/18 03:41 Dose: 70 mls/hr Lactulose (Enulose) 20 gm PO BID [facility] Last Admin: 04/17/18 10:30 Dose: 20 gm Morphine Sulfate (Morphine) 1 mg IVP Q4 PRN PRN Reason: Pain, severe (8-10) Last Admin: 04/17/18 03:41 Dose: 1 mg Pantoprazole Sodium (Protonix Ec Tab) 40 mg PO DAILY [facility] Last Admin: 04/17/18 10:30 Dose: 40 mg Potassium Phos/Sodium Phos (Neutra-Phos) 1 pkt PO QID [facility] Stop: 04/19/18 14:01 Last Admin: 04/17/18 10:30 Dose: 1 pkt - Labs Labs: 04/17/18 11:04 04/17/18 11:04 PT 13.3 SECONDS (9.7-12.2) H 04/13/18 06:57 INR 1.2 04/13/18 06:57 APTT 24 SECONDS (21-34) 04/13/18 06:57
--- NOTE | 2018-04-17 20:18 | PN ---
DATE: 04/17/2018 SUBJECTIVE: The patient was seen and examined at bedside. The patient offers no new complaints. PHYSICAL EXAMINATION: GENERAL: Sitting in chair in no acute distress. VITAL SIGNS: Blood pressure 133/79, pulse 105, respiration 20, temperature 97.5 degrees Fahrenheit, O2 sat 97% on room air. HEENT: Pupils equal, round, and reacting to light and accommodation. Extraocular muscles are intact. Positive icterus, no pallor, no oral thrush, and no pharyngeal congestion. NECK: Supple. No JVD. LUNGS: Bilateral vesicular breath sounds. No wheezing, no rhonchi. CVS: S1 and S2 present, regular. ABDOMEN: Soft and nontender. Bowel sounds present. No guarding, no rigidity, no rebound tenderness noted. TWX OPERATOR: Alert, awake and oriented x3. No focal deficits noted. EXTREMITIES: Bilateral pitting edema present. MEDICATIONS: Lactulose 20 gm p.o. b.i.d., morphine 1 mg IV every 4 hours p.r.n., Protonix 40 mg daily, Neutra-Phos 1 pack p.o. q.i.d. LABORATORY DATA: Labs from this morning WBC 13.5, hemoglobin 12.4, hematocrit 36.9, platelets 244, sodium 130, potassium 4.3, chloride 91, bicarb 28, BUN 17, creatinine 0.6, glucose 98, calcium 9.1, bilirubin 9.4, AST 363, ALT 217, alkaline phosphate 714, total protein 6.1 and albumin 3.1. ASSESSMENT AND PLAN: An elderly female with history of hypertension, hyperlipidemia, history of cerebrovascular accident, chronic low back pain, admitted for right lung mass, consistent with small cell cancer with metastasis to the liver, cirrhosis of the liver, hepatic encephalopathy with worsening LFTs, hyponatremia, hypophosphatemia with improved sodium up to 130. The patient is refusing any chemotherapy or further intervention in the hospital and requesting to be discharged to sub acute rehab and she would like to follow up with oncologist by her sister's house, as per the sister she has schedule appointment with on Wednesday for evaluation of her small cell lung cancer. As per the patient's wishes, we will transfer the patient to sub acute rehab, social serves to make arrangements for sub acute rehab placement. Once the patient is accepted, the patient may be able to go to sub acute rehab when bed available. We will continue with supportive care. Aislinn Hennessy MD
[2018-04-17] MEDS ORDERED: Sodium Chloride 0.9% 1,000 ML IV SCH (22:45)
--- NOTE | 2018-04-18 02:04 | PN ---
DATE: 04/17/2018 FOLLOWUP RENAL CONSULTATION LOCATION: The patient is located in room 559, bed A. REQUESTED BY: Aislinn Hennessy MD REASON FOR FOLLOWUP: Hyponatremia. SUBJECTIVE: Mrs. Gil is a 68-year-old elderly female with a history of hypertension, CVA, smoker who was admitted with back pain and found to have a right lung mass and also hepatomegaly, status post biopsy of the lung consistent with small cell carcinoma with neuroendocrine features with possible metastasis to the liver and liver failure with worsening LFTs since admission and also bilateral leg swelling. The patient is not in acute distress. Complains of back pain. No chest pain. No palpitation. No shortness of breath. No nausea, vomiting, or diarrhea. PHYSICAL EXAMINATION: VITAL SIGNS: As follows: Blood pressure 133/79, pulse 105, respirations 20, temperature 97.5, saturation 97%. Height 5 feet 4 inches. Weight is 135 pounds. GENERAL: Mrs. Gil is a 68-year-old elderly female, moderately built, moderately nourished, not in distress. HEENT: Pupils are normal and reactive to light and accommodation. Conjunctivae pink. Sclerae icteric. Tongue is moist. Trachea is midline. LUNGS: Symmetric on both sides. Bilateral breath sounds present. Clear to auscultation. CARDIOVASCULAR SYSTEM: [place] at the fifth intercostal space, midclavicular line. S1, S2 audible. No murmur or gallop. ABDOMEN: Distended. Hepatomegaly present. Mild tenderness in epigastric and also right upper quadrant. No abdominal bruit. Bowel sounds present. CENTRAL NERVOUS SYSTEM: The patient is alert, awake, oriented x3. Nonfocal neuro examination. Cranial nerves II-XII grossly intact. Sensory and motor system is within normal limits. EXTREMITIES: No cyanosis, no clubbing. The patient has 2+ edema in both lower extremities. CURRENT MEDICATIONS: Include as follows: Lactulose 20 g p.o. b.i.d., morphine sulfate 1 g IV piggyback every 4 hours, Neutra-Phos one packet p.o. four times a day, Protonix 40 mg p.o. daily. LABORATORY DATA: Include as follows as of 04/17/2018: WBC 13.5, hemoglobin 12.4, hematocrit is 36.9, platelets 244. Sodium 130, potassium 4.3, chloride 91, CO2 of 28, BUN 17, creatinine 0.6, glucose 98, calcium 9.1. Total bili 9.4, AST 363, ALT 217, alkaline phosphatase 714, total protein 6.1, albumin is 3.1. ASSESSMENT AND PLAN: In summary, Mrs. Gil is a 68-year-old elderly female with hypertension, cerebrovascular accident, hyperlipidemia with a lung mass and hepatomegaly with possible metastasis to the liver and with liver failure and bilateral leg swelling. 1. Hyponatremia, most likely secondary to hypotonic hypovolemic hyponatremia. Serum sodium is gradually improving with gentle hydration. Doubt syndrome of inappropriate secretion of antidiuretic hormone. We will continue gentle intravenous hydration normal saline at 70 mL per hour. 2. Metastatic lung cancer with neuroendocrine features with possible metastasis to the liver. 3. Hypertension. 4. Edema, most likely secondary to compression of the liver on inferior vena cava. Advised to keep the legs elevated and follow up with Hematology/Oncology. The patient wants to go to the subacute rehabilitation close to the patient's sister's house in [place] and want to follow up with hematology/oncologist close to her house. The patient has an appointment for the next week. We will follow with you. Thank you for allowing me to participate in your patient's care. Overall prognosis is very poor. Britney Hennessy MD
[2018-04-18 08:06] VITALS: PULSE 115
[2018-04-18 08:44] VITALS: BP 126/75; TEMP 97.9; O2SAT 96
--- NOTE | 2018-04-18 09:34 | CP.PCM.PN ---
Subjective - Date & Time of Evaluation Date of Evaluation: 04/18/18 Time of Evaluation: 09:34 - Subjective Subjective: Discharge summary dictated #[id number] Objective - Vital Signs/Intake and Output Vital Signs (last 24 hours): Temp Pulse Resp BP Pulse Ox 97.9 F 115 H 20 126/75 96 04/18/18 08:00 04/18/18 08:02 04/18/18 08:00 04/18/18 08:00 04/18/18 08:00 - Medications Medications: Current Medications Sodium Chloride (Sodium Chloride 0.9%) 1,000 mls @ 70 mls/hr IV .[id number] [facility] Stop: 04/18/18 22:46 Last Admin: 04/17/18 22:45 Dose: 70 mls/hr Lactulose (Enulose) 20 gm PO BID [facility] Last Admin: 04/17/18 17:24 Dose: Not Given Morphine Sulfate (Morphine) 1 mg IVP Q4 PRN PRN Reason: Pain, severe (8-10) Last Admin: 04/17/18 03:41 Dose: 1 mg Pantoprazole Sodium (Protonix Ec Tab) 40 mg PO DAILY [facility] Last Admin: 04/17/18 10:30 Dose: 40 mg Potassium Phos/Sodium Phos (Neutra-Phos) 1 pkt PO QID [facility] Stop: 04/19/18 14:01 Last Admin: 04/17/18 21:53 Dose: 1 pkt - Labs Labs: 04/17/18 11:04 04/17/18 11:04 PT 13.3 SECONDS (9.7-12.2) H 04/13/18 06:57 INR 1.2 04/13/18 06:57 APTT 24 SECONDS (21-34) 04/13/18 06:57
[2018-04-18] MEDS: Potassium & Sodium Phosphate PO SCH (10:59)
[2018-04-18] MEDS: Pantoprazole 40 mg EC Tab PO SCH (10:59)
--- NOTE | 2018-04-19 21:57 | DS ---
DISCHARGE DIAGNOSES: 1. Small cell cancer of the right lung with possible metastasis to the liver. 2. Cirrhosis of liver. 3. Hepatic encephalopathy. 4. Abnormal liver function tests. 5. Massive hepatomegaly. 6. Chronic low back pain. 7. History of hypertension. 8. Hyperlipidemia. 9. History of cerebrovascular accident. 10. History of alcohol abuse. 11. Prior history of smoking. 12. Status post acute kidney injury. 13. Hypokalemia. 14. Hypophosphatemia. 15. Hypomagnesemia, corrected. 16. Hyponitremia, multifactorial. 17. Syndrome of inappropriate antidiuretic hormone secretion versus volume depletion. 18. Bilateral lower extremity edema secondary to compression of the inferior vena cava with decreased venous rhythm. HISTORY OF PRESENT ILLNESS: Ms. Gil is a 68-year-old female with past medical history of hypertension, hyperlipidemia, chronic low back pain, with history of CVA, who has been following up with Dr. Amaral for many years, has been having routine visits as per the patient's sister, came into the ED, brought by EMS as the patient was complaining of low back pain, taking multiple medications without any significant relief, having constipation, feeling very tired, had not eaten, a few days prior to admission felt nauseous without any vomiting. In the emergency room, the patient was found to be having abnormal chest x-ray, elevated BUN and creatinine and the patient was admitted for closer evaluation and management. Today, the patient denies any complaints of headache or dizziness. Denies any nausea, vomiting, diarrhea, or constipation, but complaining of fullness in the stomach and chronic low back pain. Denies any chest pain, shortness of breath, or wheezing. Denies any urinary complaints. Her leg swelling has been the same. Denies any other neurologic symptoms. PHYSICAL EXAMINATION: GENERAL: Elderly female, lying in bed, in no acute distress. VITAL SIGNS: Blood pressure 126/75, pulse 110, respirations 20, temperature 97.9 degrees Fahrenheit, O2 saturations 96% on room air. HEENT: Pupils are equal, round, and reacting to light and accommodation. Extraocular muscles intact. Positive icterus. No pallor. No oral thrush. No pharyngeal congestion. NECK: Supple. No JVD. LUNGS: Bilateral vesicular breath sounds. No wheezing. No rhonchi. CARDIOVASCULAR SYSTEM: S1 and S2 present, regular. ABDOMEN: Soft. Hepatomegaly. Nontender. Bowel sounds are present. No guarding. No rigidity. No rebound tenderness noted. CENTRAL NERVOUS SYSTEM: Alert, awake, and oriented x3. No focal deficits noted. EXTREMITIES: 4+ pitting edema. Palpable peripheral pulses. LABORATORY DATA: From 04/17/2018, WBC 13.5, hemoglobin 12.4, hematocrit 36.9, platelets 244. Sodium 130, potassium 4.3, chloride 91, bicarb 28, BUN 17, creatinine 0.6, glucose 98, calcium 9.1, total bilirubin 9.4, AST 363, ALT 217, alkaline phosphatase 714, ammonia 48, total protein 6.1, albumin 3.1. PT 13.3, INR 1.2, PTT 24. Urine done on 04/11/2018, specific gravity 1.005, pH 6, otherwise negative. Leukocyte esterase negative. Urobilinogen 2. Urine drug screen positive for opiates. Hepatitis serology negative. Quantiferon negative. Lung CA, lung biopsy consistent with poorly differentiated malignant neoplasm, favor small cell CA, status post colonoscopy with polypectomy consistent with tubular adenomas. HOSPITAL COURSE: The patient was admitted to the hospital for acute kidney injury, right lung mass, abnormal liver function tests. The patient was evaluated by Pulmonary, GI. The patient was given fluids. Her renal function improved. For right lung mass, she underwent lung biopsy done by Interventional Radiology, which was consistent with small cell lung CA. The patient was evaluated by GI, underwent colonoscopy and polypectomy of the sessile polyp, which were consistent with tubular adenomas. The patient was evaluated by Hematology for small cell lung CA. Underwent CT of the head and neck, which was negative. Bone scan was negative for any bone metastasis. CT of the lumbar spine was negative for any compression. After prolonged discussion for multiple days with the patient and the patient's sister regarding inpatient chemotherapy, they both refused and said they wanted to follow up with the oncologist near her sister's place for convenience of the sister. The patient's sister made arrangements for her to be seen by oncologist on Wednesday with Dr. Cuenca in [facility]. Her hospital course was complicated by development of hyponatremia and the patient received intermittent doses of tolvaptan and fluid resuscitation, with which her sodium improved to 130. The patient's liver tests have been worsening. The patient's sister understands the patient's physical condition and the poor prognosis. Despite, she decided to proceed with outpatient therapy, so Vascular Surgery was consulted for Port-A-Cath placement, which was done by Dr. Zavala. As per the patient's sister's wishes, the patient was transferred to subacute rehab from where the patient's sister will be taking her to the oncologist for further treatment of her metastatic lung CA. The patient has been receiving lactulose for hepatic encephalopathy with mildly elevated ammonia level. As the patient's sister refused any further treatment for lung CA here, the patient is being transferred to subacute rehab for further continuation of care and physical therapy. CONDITION UPON DISCHARGE: The patient is alert, awake, and oriented x3 and hemodynamically stable at the time of discharge. DISCHARGE INSTRUCTIONS: Follow up with PMD. Follow up with Oncology as scheduled on Wednesday morning with Dr. Cuenca. Follow up with Pulmonary. Follow up with GI. DISCHARGE DIET: Low-sodium, low-cholesterol diet. ACTIVITY: As tolerated. DISCHARGE MEDICATIONS: Lactulose 20 g p.o. b.i.d., morphine 1 mg IV push every 4 hours p.r.n., Protonix 40 mg daily, Neutra-Phos 1 packet p.o. 4 times a day. Discussed with the patient at length and the patient and the patient's sister understand the poor prognosis. Aislinn Hennessy MD
== END 2018-04-18 14:51 | DRG 167 ==
LOC: C.ER 14:34 → C.9E 18:34 → C.5S 21:13
PROVIDERS: ADMIT Internal Medicine; ATTEND Internal Medicine
PROC: 0BB Respiratory System, Excision (ICD-10-PCS; 2018-04-05)
PROC: 0DBH8ZX Excision of Cecum, Via Natural or Artificial Opening Endoscopic, Diagnostic (ICD-10-PCS; 2018-04-06)
PROC: 0DBK8ZX Excision of Ascending Colon, Via Natural or Artificial Opening Endoscopic, Diagnostic (ICD-10-PCS; principal; 2018-04-06 13:01)
PROC: 02HV33Z Insertion of Infusion Device into Superior Vena Cava, Percutaneous Approach (ICD-10-PCS; 2018-04-13)
PROC: B5181ZA Fluoroscopy of Superior Vena Cava using Low Osmolar Contrast, Guidance (ICD-10-PCS; 2018-04-13)
PROC: B548ZZA Ultrasonography of Superior Vena Cava, Guidance (ICD-10-PCS; 2018-04-13)
DX: C34.11 Malignant neoplasm of upper lobe, right bronchus or lung (principal); C78.7 Secondary malignant neoplasm of liver and intrahepatic bile duct; E22.2 Syndrome of inappropriate secretion of antidiuretic hormone; N17.9 Acute kidney failure, unspecified; I69.354 Hemiplegia and hemiparesis following cerebral infarction affecting left non-dominant side; I87.1 Compression of vein; E78.5 Hyperlipidemia, unspecified; E83.42 Hypomagnesemia; E86.0 Dehydration; E87.6 Hypokalemia; G89.29 Other chronic pain; K59.00 Constipation, unspecified; I12.9 Hypertensive chronic kidney disease with stage 1 through stage 4 chronic kidney disease, or unspecified chronic kidney disease; K70.30 Alcoholic cirrhosis of liver without ascites; N18.9 Chronic kidney disease, unspecified; Z87.891 Personal history of nicotine dependence; E83.52 Hypercalcemia; K64.8 Other hemorrhoids; K57.90 Diverticulosis of intestine, part unspecified, without perforation or abscess without bleeding; D12.0 Benign neoplasm of cecum; D12.2 Benign neoplasm of ascending colon; K72.90 Hepatic failure, unspecified without coma